=== PATIENT | male | born 1985 | race Caucasian/White ===

== ENCOUNTER 2020-11-19 12:49 | Outpatient (REF) | payer OTHER, SELFPAY ==
[2020-11-19 13:55] LABS: MANUAL DIFF FLAG NO
[2020-11-19 13:59] LABS: Basophils Percent Auto 0.6 % (0-2); Eosinophils Absolute Auto 0.1 X10*3/uL (0.0-0.4); Eosinophils Percent Auto 3.6 % (0-4); Hematocrit 46.6 % (42-52); Hemoglobin 15.9 g/dl (14.0-18.0); Imm Gran Abs Auto 0.01 X10*3/uL (0.00-0.03); Imm Gran Pct Auto 0.3 % (0.0-0.4); Lymphocytes Absolute Auto 1.1 X10*3/uL (1.2-4.9); Lymphocytes Percent Auto 33.9 % (20-40); Mean Corpuscular HGB Conc 34.1 g/dl (31.0-36.0); Mean Corpuscular Hemoglobin 29.4 pg (27.0-33.0); Mean Corpuscular Volume 86.1 fL (80-98); Mean Platelet Volume 10.7 fL (9.4-12.4); Monocytes Absolute Auto 0.3 X10*3/uL (0.1-1.2); Monocytes Percent Auto 8.2 % (2-11); Neutrophils Absolute Auto 1.8 X10*3/uL (2.0-8.3); Neutrophils Percent Auto 53.4 % (45-73); Platelet Count 252 X10*3/uL (160-400); Red Blood Count 5.41 X10*6/uL (4.60-5.80); Red Cell Distribution Width 12.2 % (11.0-16.0); White Blood Count 3.3 X10*3/uL (4.8-10.8)
[2020-11-19 14:32] LABS: Alanine Aminotransferase 72 U/L (0-40); Albumin Level 4.9 g/dL (3.5-5.0); Alkaline Phosphatase 64 U/L (39-117); Anion Gap 12 (12-20); Aspartate Amino Transferase 50 U/L (5-37); Blood Urea Nitrogen 22 mg/dL (9-16); Calcium 9.6 mg/dL (8.4-10.2); Carbon Dioxide 32 mmol/L (22-29); Chloride 101 mmol/L (96-108); Cholesterol 139 mg/dL; Estimated Glomerular Filt Rate > 60; Glucose Fasting 103 mg/dL (60-99); HDL Cholesterol 61 mg/dL; LDL Cholesterol Calculated 66 mg/dl; Potassium 4.2 mmol/L (3.3-5.1); Sodium 141 mmol/L (135-145); Total Protein 7.6 g/dL (6.5-8.0); Triglycerides 61 mg/dL
[2020-11-19 14:52] LABS: TSH reflex Free T4 1.43 uIU/mL (0.32-4.0); Vitamin D 25-OH Total 29.1 ng/mL (>30)
[2020-11-19 15:12] LABS: Folate 14.2 ng/mL (> or = 4.0); Vitamin B12 549 pg/mL (200-900)
== END 2020-11-19 12:50 | disposition home or self-care (01) ==
LOC: HO.HMGCLDS 12:49
PROVIDERS: PCP Internal Medicine; Visit Provider Internal Medicine
DX: Z00.01 Encounter for general adult medical examination with abnormal findings (principal); F32.9 Major depressive disorder, single episode, unspecified; R12 Heartburn; J45.20 Mild intermittent asthma, uncomplicated; R53.81 Other malaise; R53.83 Other fatigue
CPT/HCPCS: 36415; 80053; 80061; 82306; 82607; 82746; 84443; 85025

== ENCOUNTER 2021-01-27 09:02 | Outpatient (RCR) | payer OTHER, SELFPAY ==
--- NOTE | 2021-01-28 08:51 | MHC.PT.EP ---
[facility] Office [place] Office [place] Office [address] [phone] F: [phone] F: [phone] F: [phone] F: [phone] Physical Therapy Plan of Care Date of Evaluation: Date of Surgery: n/a Diagnosis: upper and lower back pain Assessment: Patient is a 35 year old R handed male who presents with s/s consistent with upper and lower back pain. 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 Outside of work, he is habitually sedentary with a lot of computer games and sitting. Patient past medical history includes depression and anxiety. Current impairments include pain, ROM, strength, posture, activity tolerance and functional mobility. Functional limitations include decreased ability to walk, lift, sit, work at computer, stand, transfer, negotiate stairs, and perform weight bearing activities.. Patient is motivated with good rehab potential. Skilled PT will address impairments and functional limitations in order to achieve goals. Frequency and Duration: The patient will be seen 1x/week for 5 weeks Short Term Goals: I with HEP - 2 weeks Improved body mechanics lifting floor to waist - 3 weeks Improved postural awareness - 3 weeks Correction Goals: Reduced pain with ADLs to 3/10 max - 5 weeks Able to work pain free - 5 weeks Treatment Plan: Modalities to reduce pain, spasms and effusion. Manual therapy to restore motion and function. Therapeutic exercise to improve strength and flexibility. Neuromuscular re-education for posture and balance. Therapeutic activities to return to functional activities of daily living. Electronically signed by: Yassine Downey, PT Please sign and return to therapist. Thank you for your referral.
--- NOTE | 2021-04-10 09:45 | MHC.PT.DC ---
[facility] Office [place] Office [place] Office [address] [place] [address] 140 [facility] [phone] F: [phone] F: [phone] F: [phone] F: [phone] Physical Therapy Discharge Report Diagnosis: upper and lower back pain Date of Surgery: n/a Date of Evaluation: 01/27/21 Date of Discharge: 04/10/21 Treatments to Date: 1 Cancellations to Date: 0 No Shows to Date: 0 Discharge Status: Patient Elected to Stop Visit Non-compliance Discharge Summary: Pt never followed up after eval. Electronically signed by: Dario Canales PT. Please sign and return to therapist. Thank you for your referral.
== END 2021-04-10 09:46 | disposition home or self-care (01) ==
LOC: HO.PTCHIC 09:02
PROVIDERS: PCP Internal Medicine; Visit Provider Internal Medicine
DX: M54.5 Low back pain (principal); S29.012A Strain of muscle and tendon of back wall of thorax, initial encounter
CPT/HCPCS: 97110; 97161

== ENCOUNTER 2021-05-23 08:48 | Outpatient (REF) | payer OTHER, SELFPAY ==
[2021-05-23 11:59] LABS: Syphilis Screen Nonreactive (Nonreactive)
[2021-05-23 12:04] LABS: HBS Num1 30.95 mIU/mL (0-7.99); ~Hepatitis B Surface Antibody REACTIVE (Nonreactive)
[2021-05-23 12:26] LABS: HIV AB/AG Nonreactive (Nonreactive); HIV Num 1 0.07 S/CO (0.00-0.99); Hepatitis B Core Antibody Nonreactive (Nonreactive); Hepatitis B Surface Antigen Negative (Negative); ~Hepatitis C Antibody Nonreactive (Nonreactive)
[2021-05-23 13:16] LABS: CT PCR NOT DETECTED (Not Detect.); NG PCR NOT DETECTED (Not Detect.)
== END 2021-05-23 08:49 | disposition home or self-care (01) ==
LOC: HO.HMGCLDS 08:48
PROVIDERS: PCP Internal Medicine; Visit Provider Internal Medicine
DX: Z01.84 Encounter for antibody response examination (principal); Z11.3 Encounter for screening for infections with a predominantly sexual mode of transmission; Z11.4 Encounter for screening for human immunodeficiency virus [HIV]; Z11.59 Encounter for screening for other viral diseases
CPT/HCPCS: 36415; 86704; 86706; 86780; 86803; 87340; 87389; 87491; 87591

== ENCOUNTER 2021-09-22 08:19 | Outpatient (REF) | payer OTHER, SELFPAY | END 2021-09-22 08:20 | disposition home or self-care (01) | LOC: HO.HMGCLDS 08:19 | PROVIDERS: Visit Provider Internal Medicine | DX: Z20.822 Contact with and (suspected) exposure to COVID-19 (principal) | CPT/HCPCS: C9803; U0003; U0005 ==

== ENCOUNTER 2021-11-15 11:16 | Outpatient (REF) | payer OTHER, SELFPAY ==
[2021-11-15 13:10] LABS: MANUAL DIFF FLAG NO
[2021-11-15 13:27] LABS: Basophils Percent Auto 0.6 % (0-2); Eosinophils Absolute Auto 0.1 X10*3/uL (0.0-0.4); Hematocrit 43.1 % (42.0-52.0); Imm Gran Abs Auto 0.02 X10*3/uL (0.00-0.03); Imm Gran Pct Auto 0.6 % (0.0-0.4); Lymphocytes Absolute Auto 0.5 X10*3/uL (1.2-4.9); Lymphocytes Percent Auto 15.1 % (20-40); Mean Corpuscular HGB Conc 34.8 g/dl (31.0-36.0); Mean Corpuscular Hemoglobin 29.9 pg (27.0-33.0); Monocytes Absolute Auto 0.4 X10*3/uL (0.1-1.2); Monocytes Percent Auto 12.2 % (2-11); Neutrophils Absolute Auto 2.5 x10*3/uL (2.0-8.3); Neutrophils Percent Auto 69.5 % (45-73); Platelet Count 209 X10*3/uL (160-400); Red Blood Count 5.01 X10*6/uL (4.60-5.80); Red Cell Distribution Width 12.5 % (11.0-16.0); White Blood Count 3.5 X10*3/uL (4.8-10.8)
[2021-11-15 13:49] LABS: Alanine Aminotransferase 37 U/L (0-40); Albumin Level 4.6 g/dL (3.5-5.0); Alkaline Phosphatase 62 U/L (39-117); Anion Gap 13 (12-20); Aspartate Amino Transferase 29 U/L (5-37); Bilirubin Total 1.3 mg/dL (0.0-1.0); Blood Urea Nitrogen 18 mg/dL (9-16); Calcium 9.9 mg/dL (8.4-10.2); Carbon Dioxide 27 mmol/L (22-29); Chloride 103 mmol/L (96-108); Cholesterol 150 mg/dL; Estimated Glomerular Filt Rate > 60; Glucose Fasting 90 mg/dL (60-99); HDL Cholesterol 58 mg/dL; LDL Cholesterol Calculated 81 mg/dl; Potassium 4.1 mmol/L (3.3-5.1); Sodium 139 mmol/L (135-145); Total Protein 7.3 g/dL (6.5-8.0); Triglycerides 57 mg/dL
[2021-11-15 14:12] LABS: Vitamin D 25-OH Total 39.1 ng/mL (>30)
== END 2021-11-15 11:17 | disposition home or self-care (01) ==
LOC: HO.HMGCLDS 11:16
PROVIDERS: PCP Internal Medicine; Visit Provider Internal Medicine
DX: Z00.01 Encounter for general adult medical examination with abnormal findings (principal); R12 Heartburn
CPT/HCPCS: 36415; 80053; 80061; 82306; 85025

== ENCOUNTER 2022-01-29 08:47 | Emergency (ER) | payer OTHER, SELFPAY ==
[2022-01-29 09:25] VITALS: BP 118/83; PULSE 90; RESP 18; TEMP 36; O2SAT 97; BMI 24.8
--- NOTE | 2022-01-29 11:08 | ED_ITS ---
HPI - Back Pain/Injury General Chief Complaint: Back Pain/Injury Stated Complaint: back pain Time Seen by Provider: 01/29/22 10:46 Source: patient Mode of arrival: ambulatory Limitations: no limitations History of Present Illness HPI Narrative: Patient presents to the emergency department for evaluation of left lower back pain radiates down the left leg with onset of symptoms 4 days ago. 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 Does not believe that the moved or twisted wrong. Pain is made worse with prolonged standing or with ambulation. Today he was unable to work due to the pain. There has not taken any Tylenol or ibuprofen for his pain. Denies identifiable precipitating injury, fevers, chills, burning with micturition, urinary frequency, urgency, hesitancy, hematuria, bladder or bowel dysfunction, numbness or tingling of the perineum or bilateral legs. Denies any recent surgical procedures, any known immune compromising conditions, personal history of cancer, or IV drug usage. MD elicited complaint: back pain Onset (ago): day(s) Timing: intermittent Severity: mild Similar Symptoms Previously: No Quality: aching Location: lumbar spine Radiation: left upper leg Exacerbating factors: movement and walking Relieving factors: immobilization Associated symptoms: denies other symptoms Treatments prior to arrival: cold therapy and heat therapy Work related injury: No Related Data Home Medications Medication Instructions Recorded Confirmed cholecalciferol (vitamin D3) 50 50 mcg PO DAILY 05/23/21 09/11/21 mcg (2,000 unit) capsule Previous Rx's Medication Instructions Recorded escitalopram oxalate 20 mg tablet 20 mg PO DAILY #30 tab 11/14/21 escitalopram oxalate 10 mg tablet 10 mg PO DAILY #30 tab 01/29/22 naproxen 500 mg tablet 500 mg PO BID PRN #14 tab 01/29/22 Allergies Allergy/AdvReac Type Severity Reaction Status Date / Time No Known Allergies Allergy Verified 01/29/22 12:22 [No Known Allergies*] Review of Systems Review of Systems: Constitutional: No weight loss, fever, chills, weakness or fatigue. HEENT: No visual loss, blurred vision, double vision. No hearing loss, sneezing, congestion, runny nose or sore throat. Skin: No rash or itching. Cardiovascular: No chest pain, chest pressure or chest discomfort. No palpitations or pedal edema. Respiratory: No shortness of breath, cough or sputum production. Gastrointestinal: No anorexia, nausea, vomiting or diarrhea. No abdominal pain or blood in stool. Genitourinary: No burning micturition. No urinary frequency or incontinence. Neurologic: No headache, dizziness, syncope, unilateral weakness, ataxia, numbness or tingling in the extremities. No change in bowel or bladder control. Musculoskeletal: + Back pain as noted in HPI. No joint pain or stiffness. Hematologic: No bleeding or bruising. Endocrine: No polyuria or polydipsia. Yes all other systems are reviewed and are negative [facility] Past Medical History Attestation statement: The following information was validated with the patient. Source: old records reviewed Medical History Heartburn symptom Irritable bowel syndrome with constipation and diarrhea Lumbago Mild intermittent asthma Recurrent mild major depressive disorder with anxiety Surgical History No pertinent past surgical history Family History Family History Father Depression Mental health disorder Mother Breast cancer Polycystic kidney disease Maternal Grandmother Stomach cancer Maternal Grandfather Bone cancer Brother No problems noted. Brother No problems noted. Brother No problems noted. Paternal Uncle Substance use disorder Paternal Aunt Substance use disorder Social History Social History Housing: Apartment Alcohol intake: current Patient Tobacco Use Status: Never used Tobacco e-Cigarette/Vaping Use: Never Used service: No Current occupational status: employed Cognitive needs: No Hearing needs: No Vision needs: Yes Physical Exam Vital Signs: Vital Signs: Last Vital Signs Temp 96.8 F 01/29/22 09:25 Pulse 90 01/29/22 09:25 Resp 18 01/29/22 09:25 BP 118/83 01/29/22 09:25 Pulse Ox 97 01/29/22 09:25 BMI result Body Mass Index 24.8 Vital signs have been reviewed as normal and appeared to be correct. Blood pressure normal.? Heart rate normal.? Respiration rate normal. Temperature normal.? Oxygen saturation normal. Appearance: Alert.?Oriented to person, place and time. No acute distress.?Normal affect. Eyes: Pupils equal, round and reactive to light.? ENT: Pharynx normal.?? Neck: Normal inspection.? Neck supple.?? CVS: Heart sounds normal. Normal heart rate and rhythm.? Pulses normal; bilateral radial pulses 2+, bilateral posterior tibial/dorsalis pedis pulses 2+.? Respiratory: No respiratory distress.? Lung sounds clear to auscultation bilaterally?? Abdomen: Soft and non-tender. Normoactive bowel sounds. No pulsatile mass.?? Skin: Skin warm and dry.? Normal skin color.? Normal skin turgor.?? Extremities: No lower extremity edema.? No calf ttp? Back: + mild paraspinal muscular tenderness from lumbar region to coccyx. No CVA tenderness. No midline spinal tenderness, step-off's, or deformity. Full ROM intact in bilateral lower extremities. Straight leg test negative on right; Straight leg test positive on left. No rashes, lesions, areas of induration or fluctuance, or signs of infection noted. Neuro: Moves all extremities spontaneously. 5/5 strength in hip extension/flexion, abduction, adduction. Sensation to light touch intact bilaterally. Patellar and Achilles reflex 2+ bilaterally. No ataxia, gait normal and steady.. No focal neuro deficits. Course Course Course Narrative: Patient is a 36-year-old male with past medical history of asthma, and anxiety presenting for evaluation of left lower back pain with onset over the past 4 days. He is overall well appearing, nontoxic, afebrile. Urinalysis reveals no sign of infection or microscopic hematuria. Received naproxen while in the emergency department. Pain is most consistent with muscular pain, although cannot completely exclude herniated disc. On neurological exam there are no deficits. Not consistent with spinal fracture, spinal infection, epidural abscess, AAA, epidural abscess, or dissection. No high risk past medical history including incontinence, fever, immunosuppression, recent surgery or lumbar puncture, coagulopathy, significant trauma, recent unintentional weight loss, pulsatile mass, history of cancer, history of TB, history of IV drug use that would warrant MRI or CT. Not consistent with pyelonephritis, urinary tract infection, renal calculi, appendicitis, diverticulitis. On exam no concern for cauda equina syndrome. No imaging is currently indicated at this time. Plan for discharge home with new prescription for naproxen, gentle stretching and lower back exercises, provided with a return to work note, discussed reasons to return back to the emergency department, advised follow-up with primary care provider, and patient agreed with plan. MDM - Back Pain/Injury Medical Records Attestation: I reviewed the patient's medical records. Lab Data Labs: Lab Results 01/29/22 Range/Units 11:19 Urine Color YELLOW Urine Appearance CLEAR Urine pH 7.5 (5.0-8.0) Ur Specific [place] 1.015 (1.005-1.025) Urine Protein NEG (NEG-TRACE) MG/DL Urine Glucose (UA) NEG (NEG) MG/DL Urine Ketones NEG (NEG) MG/DL Urine Blood NEG (NEG) Urine Nitrite NEG (NEG) Ur Leukocyte Esterase NEG (NEG) Discharge Plan Discharge Clinical Impression: Strain of lumbar region Patient Disposition: Home, Self-Care Instructions: Low Back Strain (ED), R.I.C.E. Treatment (ED), Lower Back Exercises (ED) Additional Instructions: As we discussed, your pain is most consistent with a strain of the muscles in the lower back. You have been given a new prescription for naproxen to use as needed for pain. Do not take additional [id number] NSAIDs such as ibuprofen, Aleve, aspirin while taking this medication. You may take Tylenol in addition. Return to the emergency department any new or worsening symptoms or concerns. Follow up with her primary care provider as needed Prescriptions: New naproxen 500 mg tablet 500 mg PO BID PRN (Reason: pain) Qty: 14 0RF No Action escitalopram oxalate 20 mg tablet 20 mg PO DAILY Qty: 30 5RF cholecalciferol (vitamin D3) 50 mcg (2,000 unit) capsule 50 mcg PO DAILY 0RF escitalopram oxalate 10 mg tablet 10 mg PO DAILY Qty: 30 1RF Referrals: Karen Abdi MD [Primary Care Provider] - 1 week Stand Alone Forms: Work/School Release Interventions: ED Discharge Assessment Last Done: 01/29/22 11:50 Discharge Date/Time: 01/29/22 11:51
[2022-01-29] MEDS: NaPROXEN 500 MG TABLET PO (11:21)
[2022-01-29 11:26] LABS: Appearance Urine CLEAR; Color Urine YELLOW; Glucose Urine UA NEG (NEG); Leukocyte Esterase Urine NEG (NEG); Nitrite Urine NEG (NEG); PH 7.5 (5.0-8.0); Specific Gravity - Urine 1.015 (1.005-1.025); Urine Blood NEG (NEG); Urine Ketones NEG (NEG); Urine Protein NEG (NEG-TRACE)
== END 2022-01-29 11:51 | disposition home or self-care (01) ==
PROVIDERS: Nurse Practitioner Family; Emergency Provider Emergency Medicine; PCP Internal Medicine
DX: S39.012A Strain of muscle, fascia and tendon of lower back, initial encounter (principal); J45.20 Mild intermittent asthma, uncomplicated; X50.0XXA Overexertion from strenuous movement or load, initial encounter; Y93.9 Activity, unspecified; Y92.9 Unspecified place or not applicable; Y99.9 Unspecified external cause status
CPT/HCPCS: 81003; 99282; 99283

== ENCOUNTER 2022-07-11 08:20 | Emergency (ER) | payer OTHER, SELFPAY ==
--- NOTE | ~2022-07-11 | XR_ITS ---
EXAMINATION: XR CHEST CLINICAL INFORMATION: Chest pain. COMPARISON: None TECHNIQUE: 2 views of the chest were obtained. FINDINGS: No significant abnormality is noted involving the heart, lungs, mediastinum, bony thorax or soft tissues. XR/XR chest 2V IMPRESSION: No acute cardiopulmonary process.
--- NOTE | 2022-07-11 08:31 | ECG_ITS ---
Test Reason : CP Blood Pressure : / mmHG Vent. Rate : 075 BPM Atrial Rate : 075 BPM P-R Int : 138 ms QRS Dur : 078 ms QT Int : 346 ms P-R-T Axes : 039 057 031 degrees QTc Int : 386 ms Normal sinus rhythm Normal ECG No previous ECGs available Referred By: Generic ED Physician Electronically Signed By:DELANO HIGUERA MD
[2022-07-11 09:01] VITALS: BP 129/96; PULSE 90; TEMP 37.1; O2SAT 96; BMI 25.7
--- NOTE | 2022-07-11 10:02 | ED.CHESTPAIN ---
HPI - Chest Pain General Chief Complaint: Chest Pain Stated Complaint: chest pain Time Seen by Provider: 07/11/22 10:02 Source: patient Mode of arrival: ambulatory Limitations: no limitations History of Present Illness HPI narrative: 37 yo male with history of mild intermittent asthma, depression, irritable bowel syndrome who presents to the ER with 1 day of middle chest pains that started yesterday morning when he woke up at 5:30am. He states the pain starts in the epigastric area and radiates up into his chest in a T-distribution. He states it comes and goes in intensity and is burning in nature. It is sometimes worse with food. History of reflux in the past and intermittently takes omeprazole, last time was a few days ago. He denies any associated shortness of breath, coughing, wheezing, fever, chills, nausea, vomiting. MD complaint: chest pain Pertinent past history: other Onset (ago): day(s) (1) Timing of current episode: episodic Prior episodes: Yes Onset: awoke with symptoms Pain location: epigastric Severity: moderate Pain scale (0-10): 6 Quality: burning Relieving factors: nothing Exacerbating factors: nothing Treatment prior to arrival: none Risk Factors Coronary artery disease risk factors: none Thoracic aortic dissection risk factors: none Related Data Home Medications Medication Instructions Recorded Confirmed omeprazole 20 mg tablet,delayed 20 mg PO DAILY 03/16/22 release Previous Rx's Medication Instructions Recorded albuterol sulfate 90 mcg/actuation 2 puff inhalation Q6H PRN 03/16/22 aerosol inhaler shortness of breath or wheezing #8.5 grams dicyclomine 20 mg tablet 20 mg PO TID PRN abdominal 07/10/22 discomfort #90 tabs omeprazole 40 mg capsule,delayed 40 mg PO DAILY #14 caps 07/11/22 release Allergies Allergy/AdvReac Type Severity Reaction Status Date / Time No Known Allergies Allergy Verified 03/17/22 02:37 [No Known Allergies*] Review of Systems Review of Systems: Constitutional: No Fever, No Chills ENT/Mouth: No sore throat, No Rhinorrhea, No Swallowing Difficulty Cardiovascular: +Chest Pain, No SOB Respiratory: No Cough, No Sputum, No Wheezing, No dyspnea Gastrointestinal: No Nausea, No Vomiting, No Diarrhea, No abdominal Pain, No Hematochezia, No Melena Genitourinary: No Dysuria, No Urinary Frequency, No Hematuria Musculoskeletal: No joint pain, No Myalgias Skin: No Skin Lesions, No rash Neuro: No Weakness, No Numbness, No Dizziness, No Headache Heme/Lymph: No Bruising, No Lymphadenopathy PMFSH Past Medical History Medical History (Updated 07/11/22 @ 10:28 by CHELSEA Bradley) Difficulty concentrating Heartburn symptom Inattention Irritable bowel syndrome with constipation and diarrhea Lumbago Mild intermittent asthma Recurrent mild major depressive disorder with anxiety Surgical History No pertinent past surgical history Family History Family History Father Depression Mental health disorder Mother Breast cancer Polycystic kidney disease Maternal Grandmother Stomach cancer Maternal Grandfather Bone cancer Brother No problems noted. Brother No problems noted. Brother No problems noted. Paternal Uncle Substance use disorder Paternal Aunt Substance use disorder Social History Social History Housing: Apartment Alcohol intake: current Patient Tobacco Use Status: Never used Tobacco e-Cigarette/Vaping Use: Never Used Advance Directives: No Advance Directives Information Provided: Yes service: No Current occupational status: employed Cognitive needs: No Hearing needs: No Vision needs: Yes Physical Exam Vital Signs: Vital Signs: Last Vital Signs Temp 98.7 F 07/11/22 09:01 Pulse 71 07/11/22 10:19 Resp 17 07/11/22 10:19 BP 129/96 H 07/11/22 09:01 Pulse Ox 96 07/11/22 09:01 O2 Del Method 07/11/22 09:01 BMI result Body Mass Index 25.7 Appearance: Alert. Oriented X3. No acute distress. Eyes: Pupils equal, round and reactive to light. ENT: Pharynx normal. Neck: Normal inspection. Neck supple. CVS: Normal heart rate and rhythm. Pulses normal. Respiratory: No respiratory distress. Breath sounds normal. Abdomen: Soft with mild epigastric tenderness without rebound or guarding, normal +BS x4 Skin: Skin warm and dry. Normal skin color. Normal skin turgor. No rashes. Extremities: No lower extremity edema. Neuro: Oriented X 3. Grossly normal, nonfocal Course Course Course Narrative: 37-year-old male with history of asthma, anxiety, irritable bowel syndrome, GERD who presents to the ER for evaluation of epigastric pain that radiates up into his chest, waxing and waning over the last 24 hours. Exam and clinical presentation are most consistent with reflux and GERD. Will treat accordingly. Will rule out cardiac etiology with EKG and troponin. He appears well. His lungs are clear on exam and vital signs are stable. Reevaluation(s) Reevaluation #1: Troponin negative. CXR negative. He feels better after GI cocktail. Most likely GERD. Will d/c with PPI and dietary modifications. Stable for d/c - home instructions discussed with patient and he expressed understanding all questions were answered. MDM - Chest Pain Medical Records Data Attestation: I reviewed the patient's medical records. Lab Data Attestation: I reviewed the patient's lab results. Result diagrams: 07/11/22 10:14 07/11/22 10:14 Labs: Lab Results 07/11/22 07/11/22 07/11/22 Range/Units 10:14 10:14 10:14 WBC 4.8 (4.8-10.8) X10*3/uL RBC 5.26 (4.60-5.80) X10*6/uL Hgb 15.7 (14.0-18.0) g/dl Hct 45.8 (42.0-52.0) % MCV 87.1 (80.0-98.0) fL MCH 29.8 (27.0-33.0) pg MCHC 34.3 (31.0-36.0) g/dl RDW 12.2 (11.0-16.0) % Plt Count 238 (160-400) X10*3/uL MPV 10.4 (9.4-12.4) fL Immature Gran % (Auto) 0.6 H (0.0-0.4) % Neut % (Auto) 66.1 (45-73) % Lymph % (Auto) 20.5 (20-40) % [place] % (Auto) 9.3 (2-11) % Eos % (Auto) 2.7 (0-4) % Baso % (Auto) 0.8 (0-2) % Lymph # (Auto) 1.0 L (1.2-4.9) X10*3/uL [place] # (Auto) 0.5 (0.1-1.2) X10*3/uL Eos # (Auto) 0.1 (0.0-0.4) X10*3/uL Baso # (Auto) 0.0 (0.0-0.2) X10*3/uL Abs Immat Gran (auto) 0.03 (0.00-0.03) X10*3/uL Absolute Neuts (auto) 3.2 (2.0-8.3) x10*3/uL Absolute Nucleated RBC 0.000 (0.0-0.012) X10*3/uL Nucleated RBC % (auto) 0.0 (0.0-0.2) /100WBC Sodium 141 (135-145) mmol/L Potassium 4.1 (3.3-5.1) mmol/L Chloride 101 (96-108) mmol/L Carbon Dioxide 30 H (22-29) mmol/L Anion Gap 14 (12-20) BUN 12 (9-16) mg/dL Creatinine 1.03 (0.5-1.4) mg/dL Estim Creat Clear Calc 102.3 Estimated GFR > 60 Random Glucose 92 (60-115) mg/dL Calcium 10.2 (8.4-10.2) mg/dL Magnesium 2.2 (1.6-2.6) mg/dL Total Bilirubin 0.8 (0.0-1.0) mg/dL Direct Bilirubin 0.4 (0.0-0.5) mg/dL AST 33 (5-37) U/L ALT 61 H (0-40) U/L Alkaline Phosphatase 67 (39-117) U/L Troponin I High Sens < 3.5 (<3.5-35.0) ng/L Total Protein 7.7 (6.5-8.0) g/dL Albumin 4.9 (3.5-5.0) g/dL Lipase 12 (8-78) U/L COVID-19 ([facility]) (Negative) COVID-19 Clin Com 07/11/22 Range/Units 10:14 WBC (4.8-10.8) X10*3/uL RBC (4.60-5.80) X10*6/uL Hgb (14.0-18.0) g/dl Hct (42.0-52.0) % MCV (80.0-98.0) fL MCH (27.0-33.0) pg MCHC (31.0-36.0) g/dl RDW (11.0-16.0) % Plt Count (160-400) X10*3/uL MPV (9.4-12.4) fL Immature Gran % (Auto) (0.0-0.4) % Neut % (Auto) (45-73) % Lymph % (Auto) (20-40) % [place] % (Auto) (2-11) % Eos % (Auto) (0-4) % Baso % (Auto) (0-2) % Lymph # (Auto) (1.2-4.9) X10*3/uL [place] # (Auto) (0.1-1.2) X10*3/uL Eos # (Auto) (0.0-0.4) X10*3/uL Baso # (Auto) (0.0-0.2) X10*3/uL Abs Immat Gran (auto) (0.00-0.03) X10*3/uL Absolute Neuts (auto) (2.0-8.3) x10*3/uL Absolute Nucleated RBC (0.0-0.012) X10*3/uL Nucleated RBC % (auto) (0.0-0.2) /100WBC Sodium (135-145) mmol/L Potassium (3.3-5.1) mmol/L Chloride (96-108) mmol/L Carbon Dioxide (22-29) mmol/L Anion Gap (12-20) BUN (9-16) mg/dL Creatinine (0.5-1.4) mg/dL Estim Creat Clear Calc Estimated GFR Random Glucose (60-115) mg/dL Calcium (8.4-10.2) mg/dL Magnesium (1.6-2.6) mg/dL Total Bilirubin (0.0-1.0) mg/dL Direct Bilirubin (0.0-0.5) mg/dL AST (5-37) U/L ALT (0-40) U/L Alkaline Phosphatase (39-117) U/L Troponin I High Sens (<3.5-35.0) ng/L Total Protein (6.5-8.0) g/dL Albumin (3.5-5.0) g/dL Lipase (8-78) U/L COVID-19 ([facility]) Negative (Negative) COVID-19 Clin Com See Note ECG Data ECG #1: Attestation: I personally reviewed and interpreted this ECG as follows: ECG interpretation date: 07/11/22 ECG interpretation time: 10:27 Prior ECG tracings: available for review Interpretation: Normal sinus rhythm, ventricular rate 75 beats per minute, normal DE interval, normal QTC, no ST segment elevations or depressions. Discharge Plan Discharge Clinical Impression: GERD (gastroesophageal reflux disease) Patient Disposition: Home, Self-Care Instructions: Diet for Stomach Ulcers and Gastritis (ED), Gastroesophageal Reflux Disease (ED) Additional Instructions: Your lab workup today was unremarkable. Your pain is most likely due to GERD or gastritis (irritation and inflammation of your stomach lining) Start taking the prescribed medication as directed for this. Stick to a bland diet. Avoid foods high in acid, avoid alcohol and NSAID medications like Aleve, Motrin, Advil or ibuprofen. Follow up with your doctor as needed. Follow up with GI doctor if you symptoms persist despite dietary modifications and medication. If you develop new or worsening symptoms call 911 or come back to the ER for further evaluation. Prescriptions: New omeprazole 40 mg capsule,delayed release(DR/EC) 40 mg PO DAILY Qty: 14 0RF No Action omeprazole 20 mg tablet,delayed release (DR/EC) 20 mg PO DAILY albuterol sulfate 90 mcg/actuation HFA aerosol inhaler 2 puff inhalation Q6H PRN (Reason: shortness of breath or wheezing) Qty: 8.5 0RF dicyclomine 20 mg tablet 20 mg PO TID PRN (Reason: abdominal discomfort) Qty: 90 0RF
[2022-07-11 10:19] VITALS: PULSE 71; RESP 17
--- NOTE | 2022-07-11 10:19 | PC.NURSE ---
sr on monitor, nad, skin wpd, epigastric pain that radiates up into chest for 2nd day,
[2022-07-11 10:22] LABS: MANUAL DIFF FLAG NO
[2022-07-11] MEDS: Lidocaine HCl Viscous 2 % 15 ML SOLUTION MUCOUS MEM (10:25)
[2022-07-11] MEDS: PHENobarb/Hyoscy/Atropine/Scop 10 ML ELIXIR PO (10:25)
[2022-07-11] MEDS: Magnesium Hydrox/Alum Hydrox 30 ML ORAL.SUSP PO (10:25)
[2022-07-11 10:26] LABS: Basophils Percent Auto 0.8 % (0-2); Eosinophils Absolute Auto 0.1 X10*3/uL (0.0-0.4); Eosinophils Percent Auto 2.7 % (0-4); Hematocrit 45.8 % (42.0-52.0); Hemoglobin 15.7 g/dl (14.0-18.0); Imm Gran Abs Auto 0.03 X10*3/uL (0.00-0.03); Imm Gran Pct Auto 0.6 % (0.0-0.4); Lymphocytes Percent Auto 20.5 % (20-40); Mean Corpuscular HGB Conc 34.3 g/dl (31.0-36.0); Mean Corpuscular Hemoglobin 29.8 pg (27.0-33.0); Mean Corpuscular Volume 87.1 fL (80.0-98.0); Mean Platelet Volume 10.4 fL (9.4-12.4); Monocytes Absolute Auto 0.5 X10*3/uL (0.1-1.2); Monocytes Percent Auto 9.3 % (2-11); Neutrophils Absolute Auto 3.2 x10*3/uL (2.0-8.3); Neutrophils Percent Auto 66.1 % (45-73); Platelet Count 238 X10*3/uL (160-400); Red Blood Count 5.26 X10*6/uL (4.60-5.80); Red Cell Distribution Width 12.2 % (11.0-16.0); White Blood Count 4.8 X10*3/uL (4.8-10.8)
[2022-07-11 10:39] LABS: COVID-19 Test Negative (Negative); IDNOW Serial# 16C4AD1C
[2022-07-11 10:42] LABS: Alanine Aminotransferase 61 U/L (0-40); Albumin Level 4.9 g/dL (3.5-5.0); Alkaline Phosphatase 67 U/L (39-117); Anion Gap 14 (12-20); Aspartate Amino Transferase 33 U/L (5-37); Bilirubin Direct 0.4 mg/dL (0.0-0.5); Bilirubin Total 0.8 mg/dL (0.0-1.0); Blood Urea Nitrogen 12 mg/dL (9-16); Calcium 10.2 mg/dL (8.4-10.2); Carbon Dioxide 30 mmol/L (22-29); Chloride 101 mmol/L (96-108); Creatinine Clr Calc Pharmacy 102.3; Estimated Glomerular Filt Rate > 60; Glucose Random 92 mg/dL (60-115); Lipase 12 U/L (8-78); Magnesium 2.2 mg/dL (1.6-2.6); Potassium 4.1 mmol/L (3.3-5.1); Sodium 141 mmol/L (135-145); Total Protein 7.7 g/dL (6.5-8.0)
[2022-07-11 10:48] LABS: Troponin-I High Sensitivity < 3.5 ng/L (<3.5-35.0)
--- NOTE | 2022-07-11 10:56 | PC.NURSE ---
sr on monitor, skin wpd, states pain improved, provider aware
== END 2022-07-11 11:36 | disposition home or self-care (01) ==
PROVIDERS: Emergency Provider Emergency Medicine; PCP Internal Medicine
DX: K21.9 Gastro-esophageal reflux disease without esophagitis (principal); Z20.822 Contact with and (suspected) exposure to COVID-19
CPT/HCPCS: 71046; 80048; 80076; 83690; 83735; 84484; 85025; 87635; 93005; 99283; 99284

== ENCOUNTER 2022-09-29 14:46 | Outpatient (REF) | payer OTHER, SELFPAY ==
[2022-09-29 17:49] LABS: Amylase 43 U/L (28-100); C Reactive Protein 0.26 mg/dL (< or = 0.50); Gamma Glutamyl Transpeptidase 86 U/L (11-51); Lipase 20 U/L (8-78)
[2022-09-29 17:59] LABS: Ferritin 130 ng/mL (20-250); TSH reflex Free T4 2.39 uIU/mL (0.32-4.0)
[2022-09-30 08:03] LABS: HBS Num1 25.57 mIU/mL (0-7.99); HBc Num1 0.75 S/CO (0.00-0.79); HBsAGNum1 0.39 S/CO (0.00-0.99); HIV AB/AG Nonreactive (Nonreactive); HIV Num 1 0.08 S/CO (0.00-0.99); Hepatitis A Antibody IgM 0.16 Index (0-0.79); Hepatitis B Core Antibody Nonreactive (Nonreactive); Hepatitis B Surface Antigen Negative (Negative); ~HepC Num1 0.11 S/CO (0.00-0.79); ~Hepatitis A Antibody IgM Nonreactive (Nonreactive); ~Hepatitis B Surface Antibody REACTIVE (Nonreactive); ~Hepatitis C Antibody Nonreactive (Nonreactive)
[2022-10-01 11:28] LABS: Alpha Fetoprotein 4.3 ng/mL (<6.1)
[2022-10-02 12:03] LABS: Anti Nuclear Antibody Pattern Nuclear, Homogeneous; Anti Nuclear Antibody Screen POSITIVE (NEGATIVE); Anti Nuclear Antibody Titer 1:40 titer
[2022-10-04 22:44] LABS: Smooth Muscle Antibody <20 U (<20)
[2022-10-06 09:02] LABS: Mitochondrial Antibodies NEGATIVE (NEGATIVE)
[2022-10-08 15:13] LABS: Transglutaminase Ab IgG <1.0 U/mL; Transglutaminase IgA <1.0 U/mL
== END 2022-09-29 14:47 | disposition home or self-care (01) ==
LOC: HO.LAB 14:46
PROVIDERS: PCP Internal Medicine; Visit Provider Nurse Practitioner
DX: K21.9 Gastro-esophageal reflux disease without esophagitis (principal); R10.10 Upper abdominal pain, unspecified; R19.7 Diarrhea, unspecified; R07.9 Chest pain, unspecified; R13.10 Dysphagia, unspecified
CPT/HCPCS: 36415; 82105; 82150; 82728; 82977; 83690; 84443; 86003; 86015; 86038; 86039; 86140; 86255; 86256; 86364; 86704; 86706; 86709; 86803; 87340; 87389; 99202

== ENCOUNTER 2022-10-03 09:35 | Outpatient (REF) | payer OTHER, SELFPAY | END 2022-10-03 09:36 | disposition home or self-care (01) | LOC: HO.LNP 09:35 | PROVIDERS: Visit Provider Nurse Practitioner | DX: R19.7 Diarrhea, unspecified (principal); K21.9 Gastro-esophageal reflux disease without esophagitis; R10.10 Upper abdominal pain, unspecified | CPT/HCPCS: 82656 ==

== ENCOUNTER 2022-11-02 09:09 | Outpatient (REF) | payer OTHER, SELFPAY ==
--- NOTE | ~2022-11-02 | US_ITS ---
EXAMINATION: US ABDOMEN COMPLETE CLINICAL INFORMATION: Diarrhea, unspecified. COMPARISON: Ultrasound abdomen complete 09/23/2018. CT abdomen and pelvis without contrast 08/13/2018. TECHNIQUE: Real-time imaging of the abdominal viscera. FINDINGS: PANCREAS: The head and body appear normal. The tail is obscured by bowel gas. ABDOMINAL AORTA: The proximal, mid, and distal segments are normal in caliber. INFERIOR VENA CAVA: Visualized portions are normal. LIVER: The liver is normal in size. The liver contour is normal. There is diffuse increased liver parenchymal echogenicity, consistent with hepatic steatosis. No focal hepatic lesion. There is no intrahepatic biliary duct dilatation seen. GALLBLADDER: Normal. The gallbladder is physiologically distended without evidence of stones, sludge, wall thickening or pericholecystic fluid. COMMON BILE DUCT: Normal in caliber measuring 0.4 cm in diameter. RIGHT KIDNEY: Normal. No hydronephrosis. No renal calculi or focal parenchymal lesions. The kidney measures 10.5 cm in maximum dimension. LEFT KIDNEY: Normal. No hydronephrosis. No renal calculi or focal parenchymal lesions. The kidney measures 11.5 cm in maximum dimension. SPLEEN: Borderline enlarged The spleen measures 13.3 cm in maximum dimension. FREE FLUID: None. US/US abdomen complete IMPRESSION: Hepatic steatosis. Stable borderline enlarged spleen 13.3 cm.
== END 2022-11-02 09:10 | disposition home or self-care (01) ==
LOC: HO.US 09:09
PROVIDERS: Visit Provider Nurse Practitioner
DX: R19.7 Diarrhea, unspecified (principal); R10.10 Upper abdominal pain, unspecified; K21.9 Gastro-esophageal reflux disease without esophagitis
CPT/HCPCS: 76700

== ENCOUNTER 2022-11-20 08:55 | Outpatient (REF) | payer OTHER, SELFPAY ==
--- NOTE | ~2022-11-20 | FL_ITS ---
EXAMINATION: FL BARIUM SWALLOW CLINICAL INFORMATION: Dysphagia COMPARISON: None TECHNIQUE: Fluoroscopic assessment of the esophagus was performed in various upright and prone obliquities utilizing thin and thick high density barium contrast material and effervescent granules. A 13 mm barium tablet was also utilized. FINDINGS: There is normal oral bolus control and transfer. Normal posterior tilt of the epiglottis with elevation of the hyoid. No cricopharyngeal abnormality. 13 mm barium tablet passed freely through the esophagus and into the stomach without delay. The esophagus was normal in course, caliber, and contour. There was normal distensibility with no fixed segment of narrowing. No focal mucosal abnormality was identified. No significant esophageal dysmotility was observed. Contrast passed freely across the gastroesophageal junction into the stomach. No significant hiatal hernia. Mild gastroesophageal reflux was observed. FLUOROSCOPY TIME: 1.4 minutes DOSE AREA PRODUCT: 8.658 Gy-cm2 (newton-centimeter squared) FL/FL barium swallow IMPRESSION: Mild gastroesophageal reflux noted. Otherwise unremarkable esophagram evaluation.
== END 2022-11-20 08:56 | disposition home or self-care (01) ==
LOC: HO.XRAY 08:55
PROVIDERS: PCP Internal Medicine; Visit Provider Nurse Practitioner
DX: R13.10 Dysphagia, unspecified (principal)
CPT/HCPCS: 74220

== ENCOUNTER → 2022-12-23 15:48 | Outpatient (BNVA) | payer OTHER, SELFPAY | PROVIDERS: PCP Internal Medicine; Visit Provider Nurse Practitioner | DX: K21.9 Gastro-esophageal reflux disease without esophagitis (principal); K58.2 Mixed irritable bowel syndrome; K75.81 Nonalcoholic steatohepatitis (NASH) | CPT/HCPCS: 99212 ==

== ENCOUNTER 2023-02-26 10:14 | Emergency (ER) | payer OTHER, SELFPAY ==
--- NOTE | ~2023-02-26 | MR_ITS ---
EXAMINATION: MR LUMBAR SPINE WITHOUT CONTRAST CLINICAL INFORMATION: Low back pain, urinary retention/incontinence. COMPARISON: CT scan of the lumbar spine earlier 02/26/2023. TECHNIQUE: MRI of the lumbar spine was obtained using routine sequences without contrast. FINDINGS: VERTEBRAL BODIES AND PARASPINAL STRUCTURES: There is a mild retrolisthesis of L5 on S1, and there is narrowing of intervertebral disc height at this level and there are degenerative endplate contour changes with relatively extensive edematous signal. Vertebral body heights are maintained and no fractures are demonstrated. There is a prominent area of increased T1 and T2 signal in the posterior body of L5, most consistent with a hemangioma. Overall, marrow signal is homogenous. The visualized retroperitoneal and pelvic structures are unremarkable. CONUS MEDULLARIS AND CAUDA EQUINA: Normal, terminating at the level of L1. The lower thoracic spinal cord appears normal. The cauda equina nerve roots and filum terminale appear normal. There are prominent Tarlov cyst in the sacral spinal canal. SPINAL LEVELS: L1-L2: The facet joints appear normal. There is a small right foraminal nerve root sheath cyst. Posterior disc contour is normal. There is no central stenosis and the neural foramina are patent bilaterally. L2-L3: The facet joints appear normal bilaterally. Disc contour is normal. There is no central stenosis or foraminal narrowing. L3-L4: The facet joints appear normal bilaterally. Disc contour is normal. There is no central stenosis or foraminal narrowing. L4-L5: There is mild bilateral facet arthropathy. There is a mild diffuse disc bulge but there is no central stenosis and the neural foramina are patent bilaterally. L5-S1: There is moderate bilateral facet arthropathy. There is a broad-based posterior disc protrusion with an extruded component extending behind the body of S1 centrally and to the left of midline, and there is impingement on the traversing S1 nerve roots bilaterally, more extensively on the left. There are also bilateral foraminal disc protrusions impinging on the exiting L5 nerve roots. There is no central stenosis. MR/MR lumbar spine wo con IMPRESSION: 1. There is a posterior disc protrusion/extrusion at L5-S1 with impingement on the traversing S1 nerve roots bilaterally, more extensive on the left. There are also bilateral foraminal disc protrusions impinging on the exiting L5 nerve roots. There is no central stenosis. 2. There is no significant spondylosis or facet arthropathy at other levels. There are no acute fractures or subluxations.
--- NOTE | ~2023-02-26 | CT_ITS ---
EXAMINATION: CT LUMBAR SPINE CLINICAL INFORMATION: Low back pain. Urinary incontinence. COMPARISON: Lumbar spine x-ray June [address] of the abdomen and pelvis July 2018 TECHNIQUE: Axial images through the lumbar spine following IV contrast. Patient received 85 mL Omnipaque 350 IV contrast. Sagittal and coronal reconstructions on the technologist workstation were performed. This CT examination was performed using dose optimization techniques as appropriate, variously including the following: *Automated exposure control *Adjustment of mA and/or kV according to patient size (this includes techniques or standardized protocols for targeted exams where dose is matched to indication/reason for exam; i.e. extremities or head) *Use of iterative reconstruction technique DLP: 351 mGy-cm FINDINGS: Bone alignment is normal. No fracture or dislocation. There is degenerative disc disease at L5-S1. T12-L1 there is no disc herniation protrusion or bulge. At L1-L2 there is no disc herniation protrusion or bulge. At L2-L3 there is no disc herniation protrusion or bulge. At L3-L4 there is mild diffuse disc bulge. No disc herniation. There is mild spinal stenosis due to disc bulge and short pedicles. At L4-L5 there is mild diffuse disc bulge. No disc herniation. No spinal stenosis. At L5-S1 there is a large diffuse disc bulge or broad-based disc herniation. Disc is seen in the bilateral lateral recesses and abuts the bilateral S1 nerve roots. Neural foramen are patent. There is mild facet arthritis bilaterally at L5-S1. There are Tarlov cysts seen in the sacrum. Paraspinal soft tissues are unremarkable. CT/CT lumbar spine w IV con IMPRESSION: Large disc bulge or broad-based disc herniation at L5-S1. Mild disc bulge L3-L4 and L4-L5.
[2023-02-26 10:15] VITALS: BP 138/87; PULSE 88; RESP 18; TEMP 36.6; O2SAT 99; BMI 25.8
--- NOTE | 2023-02-26 10:55 | PC.NURSE ---
patient a&ox3, patient states his lower back is painful lt hip radiating to rt hip, pt states he is also recently having ED from it. pt states that he also has urinary incontinence, pt states he hasnt seen his PCP about this issue has a physical in March but his symptoms have worsened.
--- NOTE | 2023-02-26 11:15 | ED_ITS ---
HPI - Back Pain/Injury General Chief Complaint: Back Pain/Injury Stated Complaint: lower back pain/ L leg pain Time Seen by Provider: 02/26/23 10:39 Source: patient Mode of arrival: ambulatory Limitations: no limitations History of Present Illness HPI Narrative: 37-year-old male with history of anxiety / depression, GERD, asthma who presents to the ER for evaluation of worsening non-traumatic low back pain and left lower extremity pain for the last 2 months. He states the pain Seems to originate in the left upper thigh, radiate up to the left buttock and left low back. It radiates all the way down the left leg as well. He states is worse with any movement. He states he also has been suffering from erectile dysfunction, difficulty maintaining and obtaining an erection. He also admits to urinary dribbling after he voids. He states that after he urinates, and he bends the wrong way, he dribbles urine. This is been happening at increased frequency for the last couple of months. He reports some numbness and tingling in his left inguinal area. No weakness of the left leg. No fecal incontinence. No fevers or history of drug use. 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 MD elicited complaint: back pain Pertinent past history: prior back pain Onset (ago): month(s) (2) Timing: progressively worsening Severity: severe Similar Symptoms Previously: Yes Quality: sharp, stabbing and tingling Location: left lower back Radiation: groin, buttocks, left upper leg and left leg below the knee Exacerbating factors: movement Relieving factors: immobilization and supine Associated symptoms: urinary incontinence and parasthesias Related Data Home Medications Medication Instructions Recorded Confirmed quetiapine 50 mg tablet (Seroquel) 50 mg PO BEDTIME 12/23/22 Previous Rx's Medication Instructions Recorded albuterol sulfate 90 mcg/actuation 2 puff inhalation Q6H PRN 08/10/22 aerosol inhaler shortness of breath or wheezing #8.5 grams omeprazole 20 mg tablet,delayed 20 mg PO DAILY #30 tabs 12/23/22 release polyethylene glycol 3350 17 17 g PO DAILY 30 days #510 grams 12/23/22 gram/dose oral powder (Miralax) cyclobenzaprine 10 mg tablet 10 mg PO TID PRN muscle spasm #14 02/26/23 tabs ibuprofen 600 mg tablet 600 mg PO Q8H PRN pain #30 tabs 02/26/23 Allergies Allergy/AdvReac Type Severity Reaction Status Date / Time No Known Allergies Allergy Verified 02/26/23 10:15 [No Known Allergies*] Review of Systems Review of Systems: Yes all other systems are reviewed and are negative [facility] Past Medical History Medical History (Updated 02/26/23 @ 16:25 by CHELSEA Bradley) Difficulty concentrating Inattention Irritable bowel syndrome with constipation and diarrhea Lumbago Mild intermittent asthma Recurrent mild major depressive disorder with anxiety Surgical History No pertinent past surgical history Family History Family History Father Depression Mental health disorder Mother Breast cancer Polycystic kidney disease Maternal Grandmother Stomach cancer Maternal Grandfather Bone cancer Brother No problems noted. Brother No problems noted. Brother No problems noted. Paternal Uncle Substance use disorder Paternal Aunt Substance use disorder Social History Social History Housing: Apartment Alcohol intake: never Patient Tobacco Use Status: Never used Tobacco Smoked in Last 30 Days: No e-Cigarette/Vaping Use: Never Used Use of substances other than those prescribed or required for medical reasons: No Advance Directives: No Advance Directives Information Provided: Yes service: No Current occupational status: employed Cognitive needs: No Hearing needs: No Vision needs: Yes Physical Exam Vital Signs: Vital Signs: Last Vital Signs Temp 97.4 F 02/26/23 17:13 Pulse 69 02/26/23 17:13 Resp 18 02/26/23 17:13 BP 126/89 02/26/23 17:13 Pulse Ox 98 02/26/23 17:13 O2 Del Method Room Air 02/26/23 17:13 BMI result Body Mass Index 25.8 Appearance: Alert. Oriented X3. No acute distress. Head: normocephalic, atraumatic. Eyes: Pupils equal, round and reactive to light. ENT: Pharynx normal. No tonsillar swelling or exudate. Neck: Normal inspection. Neck supple. CVS: Normal heart rate and rhythm. Pulses normal. Respiratory: No respiratory distress. Breath sounds normal. Abdomen: Soft and nontender. +BS x4 [place]: normal rectal tone Back: Normal inspection. There is tenderness diffusely throughout the lumbar area including the lumbar spine and left and right middle lumbar area soft tissues. Negative straight leg raise Bilaterally. Skin: Skin warm and dry. Normal skin color. Normal skin turgor. No rashes. Extremities: No lower extremity edema. No joint swelling. Neuro/psych: Oriented X 3. No motor deficit. No sensory deficit. CN II-XII intact. Normal speech and cognition. Normal patellar reflexes bilaterally. Steady gait. Medications Administered Discontinued Medications Generic Name Dose Route Start Last Admin Trade Name Freq PRN Reason Stop Dose Admin Iohexol 100 ml 02/26/23 12:23 02/26/23 12:28 Iohexol 350 Mg/Ml 100 Ml Infus..Btl IV 02/26/23 12:24 85 ml ONCE ONE Administration Medical Decision Making Medical Decision Making [facility] Narrative: 37-year-old male presents to the ER for evaluation of worsening left lower back pain for the last 2 months. He states it radiates down the left leg and into the left groin, associated with some tingling sensation in the left groin. He also endorses erectile dysfunction and urinary incontinence after he voids. Concern for possible urinary retention. Postvoid residual in the emergency department today is 32 cc. Given his concerning history, a CT scan was performed showing large disc bulge at the L5-S1 area with nerve root compression. an MRI was performed for further evaluation given cord compression concern. Thankfully there was no central cord stenosis seen on MRI. At this time patient is stable for discharge home with anti-inflammatories and close outpatient follow-up. Differential Diagnosis Differential Diagnoses: The differential diagnosis associated with the presentation includes Inflammatory disorders, malignancy, trauma, osteoporosis, nerve root compression, radiculopathy, plexopathy, degenerative disc disease, disc herniation, spinal stenosis, sacroiliac joint dysfunction, facet joint injury, and cauda equina less likely infection?like abscess or diskitis Admission/Observation Consideration of admission/observation: Escalation of care including admission/observation considered There was concern for cauda equina, considered admission and transfer if found to be positive On imaging today Lab Data [facility] Lab Attestation statement: I reviewed the patient's lab results. 02/26/23 11:30 02/26/23 11:30 Labs: Lab Results 02/26/23 02/26/23 Range/Units 11:30 11:30 WBC 3.7 L (4.8-10.8) X10*3/uL RBC 5.05 (4.60-5.80) X10*6/uL Hgb 14.8 (14.0-18.0) g/dl Hct 43.8 (42.0-52.0) % MCV 86.7 (80.0-98.0) fL MCH 29.3 (27.0-33.0) pg MCHC 33.8 (31.0-36.0) g/dl RDW 12.5 (11.0-16.0) % Plt Count 217 (160-400) X10*3/uL MPV 10.5 (9.4-12.4) fL Immature Gran % (Auto) 0.3 (0.0-0.4) % Neut % (Auto) 55.3 (45-73) % Lymph % (Auto) 29.3 (20-40) % [place] % (Auto) 11.0 (2-11) % Eos % (Auto) 3.0 (0-4) % Baso % (Auto) 1.1 (0-2) % Lymph # (Auto) 1.1 L (1.2-4.9) X10*3/uL [place] # (Auto) 0.4 (0.1-1.2) X10*3/uL Eos # (Auto) 0.1 (0.0-0.4) X10*3/uL Baso # (Auto) 0.0 (0.0-0.2) X10*3/uL Abs Immat Gran (auto) 0.01 (0.00-0.03) X10*3/uL Absolute Neuts (auto) 2.0 (2.0-8.3) x10*3/uL Absolute Nucleated RBC 0.000 (0.0-0.012) X10*3/uL Nucleated RBC % (auto) 0.0 (0.0-0.2) /100WBC Sodium 140 (135-145) mmol/L Potassium 4.5 (3.3-5.1) mmol/L Chloride 106 (96-108) mmol/L Carbon Dioxide 27 (22-29) mmol/L Anion Gap 12 (12-20) BUN 16 (9-16) mg/dL Creatinine 0.98 (0.5-1.4) mg/dL Estim Creat Clear Calc 107.5 Estimated GFR > 60 Random Glucose 110 (60-115) mg/dL Calcium 9.7 (8.4-10.2) mg/dL Independent Interpretation I performed an independent interpretation of an: CT Scan Interpretation: disc bulge appreciated lumbar spine, agree w/ radiologist read. Radiology Impression Discussion of test interpretation with radiology: I have reviewed the radiologist's reading. Radiologist Impression: CT/CT lumbar spine w IV con IMPRESSION: Large disc bulge or broad-based disc herniation at L5-S1. Mild disc bulge L3-L4 and L4-L5. MR/MR lumbar spine wo con IMPRESSION: 1. There is a posterior disc protrusion/extrusion at L5-S1 with impingement on the traversing S1 nerve roots bilaterally, more extensive on the left. There are also bilateral foraminal disc protrusions impinging on the exiting L5 nerve roots. There is no central stenosis. ? 2. There is no significant spondylosis or facet arthropathy at other levels. There are no acute fractures or subluxations. External Record Review External record reviewed: Outpatient record Prescription Management I considered prescription management with: Pain Medication Critical Care Time Critical Care Time Critical Care Time: Yes Total Critical Care Time: 39 Attestation: I have personally provided critical care time exclusive of time spent on separately billable procedures. Time includes review of lab data, radiology results, discussion with consultants, and monitoring for potential decompensatio n. Intervention performed as documented. Discharge Plan Discharge Clinical Impression: Herniation of intervertebral disc between L5 and S1 Patient Disposition: Home, Self-Care Instructions: Lumbar Disc Herniation (ED), Lower Back Exercises (ED) Additional Instructions: Minimize your bending, lifting & twisting. Use ice several times per day for 20 minutes at a time for the next 48 hours and then change to heat. Take medications as prescribed to help with pain and discomfort. Follow up with your Primary Care Doctor as soon as possible If your pain worsens, if you develop new numbness, tingling, weakness, loss of function or incontinence call 911 or come back to the ER right away for evaluation. Recommend following up with [facility] in [place] or [facility]. Phone number is . ?MR/MR lumbar spine wo con IMPRESSION: 1. There is a posterior disc protrusion/extrusion at L5-S1 with impingement on the traversing S1 nerve roots bilaterally, more extensive on the left. There are also bilateral foraminal disc protrusions impinging on the exiting L5 nerve roots. There is no central stenosis. ? 2. There is no significant spondylosis or facet arthropathy at other levels. There are no acute fractures or subluxations. Prescriptions: New ibuprofen 600 mg tablet 600 mg PO Q8H PRN (Reason: pain) Qty: 30 0RF cyclobenzaprine 10 mg tablet 10 mg PO TID PRN (Reason: muscle spasm) Qty: 14 0RF No Action albuterol sulfate 90 mcg/actuation HFA aerosol inhaler 2 puff inhalation Q6H PRN (Reason: shortness of breath or wheezing) Qty: 8.5 0RF quetiapine [Seroquel] 50 mg tablet 50 mg PO BEDTIME polyethylene glycol 3350 [Miralax] 17 gram/dose powder 17 g PO DAILY 30 Days Qty: 510 6RF omeprazole 20 mg tablet,delayed release (DR/EC) 20 mg PO DAILY Qty: 30 6RF
[2023-02-26 11:36] LABS: MANUAL DIFF FLAG NO
[2023-02-26 11:42] LABS: Basophils Percent Auto 1.1 % (0-2); Eosinophils Absolute Auto 0.1 X10*3/uL (0.0-0.4); Hematocrit 43.8 % (42.0-52.0); Hemoglobin 14.8 g/dl (14.0-18.0); Imm Gran Abs Auto 0.01 X10*3/uL (0.00-0.03); Imm Gran Pct Auto 0.3 % (0.0-0.4); Lymphocytes Absolute Auto 1.1 X10*3/uL (1.2-4.9); Lymphocytes Percent Auto 29.3 % (20-40); Mean Corpuscular HGB Conc 33.8 g/dl (31.0-36.0); Mean Corpuscular Hemoglobin 29.3 pg (27.0-33.0); Mean Corpuscular Volume 86.7 fL (80.0-98.0); Mean Platelet Volume 10.5 fL (9.4-12.4); Monocytes Absolute Auto 0.4 X10*3/uL (0.1-1.2); Neutrophils Percent Auto 55.3 % (45-73); Platelet Count 217 X10*3/uL (160-400); Red Blood Count 5.05 X10*6/uL (4.60-5.80); Red Cell Distribution Width 12.5 % (11.0-16.0); White Blood Count 3.7 X10*3/uL (4.8-10.8)
[2023-02-26 11:59] LABS: Anion Gap 12 (12-20); Blood Urea Nitrogen 16 mg/dL (9-16); Calcium 9.7 mg/dL (8.4-10.2); Carbon Dioxide 27 mmol/L (22-29); Chloride 106 mmol/L (96-108); Creatinine Clr Calc Pharmacy 107.5; Estimated Glomerular Filt Rate > 60; Glucose Random 110 mg/dL (60-115); Potassium 4.5 mmol/L (3.3-5.1); Sodium 140 mmol/L (135-145)
[2023-02-26] MEDS: iohexoL 350 MG/ML 100 ML INFUS..BTL IV (12:28)
[2023-02-26 14:00] VITALS: BP 131/78; PULSE 86; RESP 18; TEMP 36.7; O2SAT 99
--- NOTE | 2023-02-26 14:13 | PC.NURSE ---
bladder scan obtained, mri screening form performed and faxed to mri
[2023-02-26 17:13] VITALS: BP 126/89; PULSE 69; RESP 18; TEMP 36.3; O2SAT 98
--- NOTE | 2023-02-26 17:23 | PC.NURSE ---
pt to MRI
--- NOTE | 2023-02-26 18:33 | PC.NURSE ---
pt returned from mri, rectal exam performed by provider
[2023-02-26 19:05] VITALS: BP 124/88; PULSE 76; RESP 16; TEMP 36.5; O2SAT 97
[2023-02-26] MEDS: Ketorolac Tromethamine 30 MG/ML VIAL IVPUSH (19:07)
--- NOTE | 2023-02-26 19:10 | PC.NURSE ---
patient a&ox3, vss, pt medicated for 6/10 lower back pain, awaiting discharge
== END 2023-02-26 19:15 | disposition home or self-care (01) ==
PROVIDERS: Physician Assistant; Emergency Provider Internal Medicine; PCP Internal Medicine
DX: M51.27 Other intervertebral disc displacement, lumbosacral region (principal); R32 Unspecified urinary incontinence; M79.605 Pain in left leg; Z79.899 Other long term (current) drug therapy
CPT/HCPCS: 36415; 51798; 72132; 72148; 80048; 85025; 96374; 99284; 99285; J1885; Q9967

== ENCOUNTER 2023-04-15 12:53 | Outpatient (AMB) | payer OTHER, SELFPAY ==
[2023-04-15 13:02] VITALS: BP 126/80; PULSE 74; O2SAT 98; BMI 27.2
--- NOTE | 2023-04-15 13:02 | A.OFFPC_ITS ---
Vital Signs 04/15/23 13:02 Height 5 ft 10 in Weight 189 lb 4 oz BMI 27.2 BP 126/80 Blood Pressure Location Lt brachial Position Sitting Pulse 74 Pulse Source Pulse Oximeter Pulse Oximetry (%) 98 Oxygen Delivery Method Room Air Intake Visit Reasons: Annual PE Allergies No Known Allergies [No Known Allergies*] Allergy (Verified 04/15/23 13:04) Medication List - Last Reconciled 04/15/23 by Karen Abdi MD albuterol sulfate 90 mcg/actuation 2 puffs inhalation Q6H PRN ibuprofen 600 mg PO Q8H PRN omeprazole 20 mg PO DAILY Tobacco use date assessed: 04/15/23 Dental Screening Dental Screen Date: 04/15/23 Did you have a dental visit in the last 12 months?: No Did you have a dental problem in the last 6 months where you did not have access to dental care?: No Was dental information given to patient?: No HPI Annual PE HPI Details 38-year-old male here today for physical exam. Has mild intermittent asthma uses albuterol as needed for episodes of wheezing and bronchospasm. Lat jigna however he has been complaining of nasal congestion and phlegm in his throat accompanied by bronchospasm shortness of breath. Denies any wheezing, no fever, no coughing fits. Complains of pain in his lower back with radiation down left leg. MRI of lumbar spine showed presence of posterior disc protrusion/extrusion at L5-S1 with impingement on the traversing S1 nerve roots bilaterally, more extensive on the left. There are also bilateral foraminal disc protrusions impinging on the exiting L5 nerve roots. There is no central stenosis. Patient states that he was lifting a lot of boxes at work when he started feeling sudden pain and burning sensations back going down leg, approximately 3 months ago. Patient also mentions that he has been having difficulty getting morning erections and maintaining penile erection during sexual intercourse since that episode. Currently is being seen by Trista mullins, and diagnosed with depression/anxiety. Currently feeling better, stopped taking quetiapine, as it was not really helping and was making very drowsy. [facility] Medical History (Updated 04/15/23 @ 13:54 by Karen Abdi MD) Difficulty concentrating Erectile dysfunction Inattention Irritable bowel syndrome with constipation Irritable bowel syndrome with constipation and diarrhea Lumbago Lumbar disc herniation with radiculopathy Mild intermittent asthma Recurrent mild major depressive disorder with anxiety Surgical History No pertinent past surgical history Family History Father Depression Mental health disorder Mother Breast cancer Polycystic kidney disease Maternal Grandmother Stomach cancer Maternal Grandfather Bone cancer Brother No problems noted. Brother No problems noted. Brother No problems noted. Paternal Uncle Substance use disorder Paternal Aunt Substance use disorder Social History Housing: Apartment Alcohol intake: never Patient Tobacco Use Status: Never used Tobacco e-Cigarette/Vaping Use: Never Used service: No Current occupational status: employed Cognitive needs: No Hearing needs: No Vision needs: Yes Questionnaire PHQ-9 Over the last 2 weeks, how often have you been bothered by any of the following problems? 1. Little interest or pleasure in doing things: several days 2. Feeling down, depressed, or hopeless: not at all 3. Trouble falling or staying asleep, or sleeping too much: several days 4. Feeling tired or having little energy: several days 5. Poor appetite or overeating: not at all 6. Feeling bad about yourself - or that you are a failure or have let yourself or your family down: not at all 7. Trouble concentrating on things, such as reading the newspaper or watching television: several days 8. Moving or speaking so slowly that other people could have noticed. Or the opposite - being so fidgety or restless that you have been moving around a lot more than usual: not at all 9. Thoughts that you would be better off or of hurting yourself in some way: not at all Total score: 4 Depression Screening Interpretation: Positive Depression Screening Follow-up: Existing condition, In treatment, Community Mental Health Worker F/U and Declines treatment (Does not want to start any medications at present time.) 27768 - PHQ-9 Billing: Yes Source: Developed by Drs. Jeremie Medina, Jeannine Mc, Ravi Rock and colleagues, with an educational gal from [employer]. Thrive Questionnaire Date Thrive assessed: 04/15/23 I am a: Patient What is your living situation today?: I have a steady place to live Within the past 12 months, did the food you bought not last and you didn't have the money to get more?: Never true Within the past 12 months, did you worry whether your food would run out before you got money to buy more?: Never true Do you have trouble paying for medicines?: No Do you have trouble getting transportation to medical appointments?: No Do you have trouble paying your heating and electricity bill?: No Do you have trouble taking care of your child, family member or friend?: No Do you have trouble with day-to-day activities such as bathing, preparing meals, shopping, managing finances, etc.?: No Are you currently unemployed and looking for a job?: No Are you interested in more education?: Yes AUDIT C Alcohol Use Questionnaire (AUDIT-C) 1. How often do you have a drink containing alcohol?: Never 3. How often do you have six or more drinks on one occasion?: Never Total Score: 0 Score Reviewed/Action Taken: Yes KINGSLEY-7 AMB Questionnaire KINGSLEY-7 Date KINGSLEY - 7 assessed: 04/15/23 Feeling nervous, anxious, or on edge: 1 = Several days Not being able to stop or control worryin = Several days Worrying too much about different things: 1 = Several days Trouble relaxin = Not at all Being so restless that it is hard to sit still: 0 = Not at all Becoming easily annoyed or irritable: 2 = More than half the days Feeling afraid as if something awful might happen: 0 = Not at all Total KINGSLEY-7 score (0-4 normal; 5-9 mild; 10-14 moderate; 15-21 severe): 5 Source: Developed by Drs. Jeremie Medina, Jeannine Mc, Ravi Rock and colleagues, with an educational gal from [employer]. KINGSLEY-7 Assessment Billing KINGSLEY-7 Assessment Tool: KINGSLEY-7 Assessment 64921 ACT Questionnaire In the past 4 weeks, how much of the time did your asthma keep you from getting as much done at work, school or at home?: None of the time During the past 4 weeks, how often have you had shortness of breath?: 1-2 times a week During the past 4 weeks, how often did your asthma symptoms wake you up at night or earlier than usual in the morning?: Not at all During the past 4 weeks, how often have you had to use your rescue inhaler or nebulizer medication?: 2-3 times a week How would you rate your asthma control during the past 4 weeks?: Well controlled Score: 21 Review of Systems Const Denies fever(s), Denies night sweats, Denies poor appetite and Denies weight loss Eyes Details: glasses Reports requires corrective lenses ENT Reports Normal hearing present, Denies dysphagia, Denies hearing loss, Denies mouth pain, Denies odynophagia and Denies tongue swelling Card Reports no additional complaints Resp Reports no additional complaints GI Denies abdominal pain, Denies melena, Denies bloating, Denies hematochezia, Reports constipation, Denies GI cramping, Denies dysphagia, Denies excessive flatus, Denies early satiety, Reports heartburn, Denies diarrhea, Denies nausea and Denies odynophagia Reports as per HPI Skin/Breast Denies pruritus, Denies lesions, Denies rash and Denies jaundice Neuro Reports Normal hearing present and Denies Abnormal speech present Psych Reports as per HPI Endo Reports no additional complaints Jori/Lymph Reports no additional complaints Aller/Immun Denies tongue swelling Physical exam (Primary Care) Vital Signs: Last Vital Signs Pulse 74 04/15/23 13:02 BP 126/80 04/15/23 13:02 Pulse Ox 98 04/15/23 13:02 Oxygen Delivery Method Room Air 04/15/23 13:02 BMI result Body Mass Index 27.2 Tobacco/Smoking Status: Tobacco use Status Tobacco use date assessed 04/15/23 04/15/23 13:06 Patient Tobacco Use Status Never used Tobacco 04/15/23 13:06 e-Cigarette/Vaping Use Never Used 04/15/23 13:06 PHQ-9: PHQ-9 Score PHQ-9: Total score 11 04/15/23 13:50 Depression Screening Interpretation: Positive Depression Screening Follow-up: Existing condition, In treatment, Community Mental Health Worker F/U and Declines treatment (Does not want to start any medications at present time.) Thrive Assessment: Date of Thrive Assessment Date Thrive assessed 04/15/23 04/15/23 13:46 Const General: no acute distress and alert Nutritional Appearance: average body habitus Orientation/consciousness: patient oriented x3 [facility] Head: Yes normocephalic Ears: hearing grossly normal bilaterally, external ears normal and Abnormal EAC present excessive cerumen bilateral General nose exam: Normal external nose present and No nasal discharge present Face and sinus: Yes sinuses nontender and Yes face symmetric Mouth: Normal oral and palatal mucosa present, tongue normal, oropharynx normal and moist mucous membranes Eyes General: appearance normal, both eyes and all related structures Neck Neck: Yes full ROM, Yes no lymphadenopathy and Yes supple Thyroid: Thyroid normal Chest Chest palpation & inspection: normal inspection of the chest Resp Auscultation: clear to auscultation bilaterally Cardio Rate: regular rate Rhythm: regular rhythm Heart sounds: S1 normal heart sound present and S2 normal heart sound present GI Palpation (GI): Soft to palpation, nontender, no guarding and no masses Auscultation: normal bowel sounds Male General Exam: Yes normal external exam Back/Spine/Pelvis Other: Tender to palpation across lower back, equivocal straight leg raising sign on left Skin General skin exam: no rashes or lesions noted Neuro General: patient oriented x3, gait normal, tone normal, Normal light touch and pain sensation, no focal motor deficits and CN's II-XI intact bilaterally Cranial nerves: Yes Normal hearing present Cognition (Neuro): normal cognition Speech: No Abnormal speech present Gait exam (Neuro): Normal gait present Extrem General: Yes full ROM, Yes no joint enlargement, Yes no clubbing, cyanosis or edema, Yes no calf tenderness and Yes normal gait Psych Appearance: grossly normal and well kempt Mental Status: mental status grossly normal Speech and movement: Normal speech and movement present Affect: normal affect Attitude: cooperative Thought process: Normal thought process present Results Reviewed Results Reviewed: ENTERED: 02/26/23-[address]: Karen Abdi MD ORDERED: BMP Test Result Flag Reference Site Sodium 140 135-145 mmol/L Potassium 4.5 3.3-5.1 mmol/L Slight Hemolysis CL 106 96-108 mmol/L CO2 27 22-29 mmol/L Gap 12 12-20 BUN 16 9-16 mg/dL Creat 0.98 0.5-1.4 mg/dL Estimated CrCl 107.5 eGFR (calculated from the MDRD study equation) and eCrCl (calculated from the Cockcroft-Gault equation) are based on different parameters and may not yield comparable results. If eCrCl result is absurd, please check patient's height/weight. EGFR > 60 NOTE: For -[place] individuals, multiply the result by 1.210. Chronic Kidney Disease: Estimated GFR < 60 mL/min/1.73m2 Severe Kidney Disease: Estimated GFR < 15 mL/min/1.73m2 Glucose, Random 110 60-115 mg/dL CA 9.7 8.4-10.2 mg/dL ENTERED: 09/29/22-1631 [facility] DR: Karen Abdi MD ORDERED: [facility], HIV Ab/Ag Test Result Flag Reference Site HepA-M Interp Nonreactive Nonreactive IgM antibodies to HAV not detected; does not exclude early acute or recovered HAV infection. Anti-HBS REACTIVE Nonreactive REACTIVE: > 11.99 mIU/mL Anti-HBc Nonreactive Nonreactive Anti-HCV Nonreactive Nonreactive Antibodies to HCV not detected; does not exclude early acute HCV infection. HIV AB/AG Nonreactive Nonreactive HIV-1 p24 Ag and/or HIV-1/HIV-2 Ab not detected. A test result that is nonreactive does not exclude the possibility of exposure to or infection with HIV-1 and/or HIV-2. Nonreactive results in this assay for individuals with prior exposure to HIV-1 and/or HIV-2 may be due to antigen and antibody levels that are below the limit of detection of this assay. The [place] [employer] HIV Ag/Ab Combo assay result and supplemental assay results should be interpreted in conjunction with the patient's clinical presentation, history and other laboratory results. If the results are inconsistent with clinical evidence, additional testing is suggested to confirm the result. HBsAG Negative Negative Assessment and Plan Assessment & Plan (1) Annual visit for general adult medical examination with abnormal findings: Code(s): Z00.01 - Encounter for general adult medical examination with abnormal findings Plan: Reviewed recent labs obtained at the ER last month, with normal of CBC, random glucose, fasting lipid ordered.. Recommended dental visit every 6 months and regular eye exams, at least every 2 years. Take adequate calcium in diet and vitamin-D 3 at 2000 IU per cap once a day. Advised to get yearly flu shots, and recommended to get his COVID booster. Up-to-date with his Tdap. Advised to s elf testicular exam to check for any mass (2) PHILLIPS (nonalcoholic steatohepatitis): Comment: 09/29/22 Ferritin 130 GGT 86 H C-Reactive Protein 0.26 Amylase 43 Lipase 20 Alpha Fetoprotein 4.3 TSH 2.39 MYNOR Screen POSITIVE A MYNOR Titer 1:40 H Anti-Mitochondrial Ab NEGATIVE Anti-Smooth Muscle Ab <20 Tiss Transglutamin IgG <1.0 Tiss Transglutamin IgA <1.0 Hepatitis A IgM Ab Nonreactive Hep Bs Antigen Negative Hep Bs Antibody REACTIVE Hep B Core Total Ab Nonreactive Hepatitis C Ab (EIA) Nonreactive HIV 1&2 Ab/P24 Ag 4thGn Nonreactive ULTRASOUND OF THE ABDOMEN. 11/03/22? US/US abdomen complete IMPRESSION: Hepatic steatosis. Stable borderline enlarged spleen 13.3 cm. Code(s): K75.81 - Nonalcoholic steatohepatitis (PHILLIPS) Plan: Will check fasting lipid panel (3) GERD (gastroesophageal reflux disease): Code(s): K21.9 - Gastro-esophageal reflux disease without esophagitis Plan: Continue omeprazole (4) Mild intermittent asthma: Code(s): J45.20 - Mild intermittent asthma, uncomplicated Qualifiers: Asthma complication type: uncomplicated Qualified Code(s): J45.20 - Mild intermittent asthma, uncomplicated Plan: Continue albuterol inhaler as needed (5) Lumbar disc herniation with radiculopathy: Code(s): M51.16 - Intervertebral disc disorders with radiculopathy, lumbar region Plan: Referred to neurosurgery for further evaluation management. (6) Erectile dysfunction: Code(s): N52.9 - Male erectile dysfunction, unspecified Plan: Testosterone levels obtained (7) Recurrent mild major depressive disorder with anxiety: Code(s): F33.0 - Major depressive disorder, recurrent, mild; F41.9 - Anxiety disorder, unspecified Plan: Currently being followed by therapist, declines starting any medication at present time (8) Irritable bowel syndrome with constipation: Code(s): K58.1 - Irritable bowel syndrome with constipation Plan: Increase dietary fiber intake, drink plenty of fluids. May try taking [id number] senna as needed for constipation if no bowel movements after 2 days. Orders: Orders Lipid Panel Today F33.0 - Major depressive disorder, recurrent, mild, F41.9 - Anxiety disorder, unspecified, J45.20 - Mild intermittent asthma, uncomplicated, K75.81 - Nonalcoholic steatohepatitis (PHILLIPS), N52.9 - Male erectile dysfunction, unspecified, Z00.01 - Encounter for general adult medical examination with abnormal findings Testosterone, Free/Total Today F33.0 - Major depressive disorder, recurrent, mild, F41.9 - Anxiety disorder, unspecified, J45.20 - Mild intermittent asthma, uncomplicated, K75.81 - Nonalcoholic steatohepatitis (PHILLIPS), N52.9 - Male erectile dysfunction, unspecified, Z00.01 - Encounter for general adult medical examination with abnormal findings Vitamin D 25-OH Total Today F33.0 - Major depressive disorder, recurrent, mild, F41.9 - Anxiety disorder, unspecified, J45.20 - Mild intermittent asthma, uncomplicated, K75.81 - Nonalcoholic steatohepatitis (PHILLIPS), N52.9 - Male erectile dysfunction, unspecified, Z00.01 - Encounter for general adult medical examination with abnormal findings Referrals Neuro Spine Referral M51.16 - Intervertebral disc disorders with radiculopathy, lumbar region Coding Level of Care Code Est Pt [facility] Care [id number]) Diagnoses Annual visit for general adult medical examination with abnormal findings Z00.01 PHILLIPS (nonalcoholic steatohepatitis) K75.81 GERD (gastroesophageal reflux disease) K21.9 Mild intermittent asthma J45.20 Asthma complication type: uncomplicated Lumbar disc herniation with radiculopathy M51.16 Erectile dysfunction N52.9 Recurrent mild major depressive disorder with anxiety F33.0; F41.9 Irritable bowel syndrome with constipation K58.1 Additional Codes KINGSLEY-7 Assessment Billing - KINGSLEY-7 Assessment Tool: KINGSLEY-7 Assessment [id number] ([id number])
== END 2023-04-15 13:44 | disposition home or self-care (01) ==
PROVIDERS: Visit Provider Internal Medicine
DX: Z00.01 Encounter for general adult medical examination with abnormal findings (principal); K21.9 Gastro-esophageal reflux disease without esophagitis; J45.20 Mild intermittent asthma, uncomplicated; F33.0 Major depressive disorder, recurrent, mild; F41.9 Anxiety disorder, unspecified; K58.1 Irritable bowel syndrome with constipation; K75.81 Nonalcoholic steatohepatitis (NASH); M51.16 Intervertebral disc disorders with radiculopathy, lumbar region; N52.9 Male erectile dysfunction, unspecified
CPT/HCPCS: 99395

== ENCOUNTER 2023-04-17 13:06 | Outpatient (REF) | payer OTHER, SELFPAY ==
[2023-04-17 15:42] LABS: Cholesterol 134 mg/dL; HDL Cholesterol 53 mg/dL; LDL Cholesterol Calculated 69 mg/dl; Triglycerides 63 mg/dL
[2023-04-17 15:56] LABS: Vitamin D 25-OH Total 40.9 ng/mL (>30)
[2023-04-21 15:47] LABS: Testosterone, Total 654 ng/dL (250-1100)
== END 2023-04-17 13:07 | disposition home or self-care (01) ==
LOC: HO.HMGCLDS 13:06
PROVIDERS: PCP Internal Medicine; Visit Provider Internal Medicine
DX: Z00.01 Encounter for general adult medical examination with abnormal findings (principal); F41.9 Anxiety disorder, unspecified; F33.0 Major depressive disorder, recurrent, mild; J45.20 Mild intermittent asthma, uncomplicated; K75.81 Nonalcoholic steatohepatitis (NASH); N52.9 Male erectile dysfunction, unspecified
CPT/HCPCS: 36415; 80061; 82306; 84402; 84403

== ENCOUNTER 2023-05-18 12:43 | Outpatient (AMB) | payer OTHER, SELFPAY ==
--- NOTE | 2023-05-18 12:56 | A.SPINEOV_ITS ---
Intake Intake Visit Reasons: herniated disc Intake Note: Mr. Sadnoval is here today c/o back pain. MRI done @ [facility]. Diaphragm Builder Required: No Allergies No Known Allergies [No Known Allergies*] Allergy (Verified 04/15/23 13:04) Assessment & Plan Assessment & Plan (1) Lumbar disc herniation with radiculopathy: Code(s): M51.16 - Intervertebral disc disorders with radiculopathy, lumbar region Plan Dear colleague, Thank you for referring Miguelito to our office today. He is a pleasant 38-year- old male who comes in with a chief complaint of low back pain with radiation down his bilateral legs, predominantly on the left. He also endorses some numbness/tingling in his left lateral thigh. He reports that this pain 1st began in December of this year. He reports no inciting incident. He states that he has tried Tylenol, ibuprofen, cold compresses, heat, and stretching without alleviation of symptoms. He states that he has never had any injuries like this in the past, and feels that his symptoms have state relatively the same since they began December. He also reported some non-specific erectile dysfunction related issues which is unsure if they correlate with his onset of back / leg pain. He states that he has no issues with urination, or defecation. He denies saddle anesthesia. PMH: Asthma, irritable bowel syndrome, depression, erectile dysfunction, GERD. Social hx: Patient does not smoke, denies substance use. Medications: Omeprazole, ibuprofen, albuterol. Allergies: NKDA Physical exam: Sensation: Some diminished sensation of left thigh. Rest of sensation is intact and symmetric. CN: II-XII grossly intact. Strength Testing Lower Extremities: - Hip flexion 5/5 right 5/5 left - Knee extension 5/5 right 5/5 left - Dorsiflexion 5/5 right 5/5 left - Plantar flex 5/5 right 5/5 left - EHL 5/5 right 5/5 left Reflexes: - Patellar Right - 2+ Left - 2+ - Achilles Right - 2+ Left - 2+ - Plantar Right - 2+ Left - 2+ (-) Straight leg raise bilaterally Imaging review: MRI lumbar spine 02/26/[address] Christensen. The patient has a mild-moderate posterior disc bulge with some impingement on the exiting L5 nerve root noted. Central canal still appears quite patent. Endplate inflammation of L5-S1 noted between disc space. Impression: The patient is a 38-year-old male with a chief complaint low back pain with radiation of symptoms down his bilateral legs, left side more than right. He states that his symptoms began spontaneously back in December and have remained the same since. They cause him to feel mild to moderate irritation/pain throughout the day but did not impede his ability to perform daily tasks or complete his job at work, although they do irritate him throughout the day while doing these things. We discussed the possibility of surgery, and presented the potential options for him. We also discussed the possibility of subdural injections, and conservative management. He reported that he would like to try conservative management see if the disc is able to resorb on its own, and will call the office if he would like any further interventions. Thank you for allowing us to care for your patient. The total time spent with this visit with this patient was 45 minutes reviewing history, physical exam, MRI imaging review, and implementation of treatment plan or further diagnostic testing David Christensen MD,PhD [facility] Coding Level of Care Code New Pt Level 4 (64571) Diagnoses Lumbar disc herniation with radiculopathy M51.16
== END 2023-05-18 13:27 | disposition home or self-care (01) ==
PROVIDERS: PCP Internal Medicine; Referring Provider Internal Medicine; Visit Provider Physician Assistant
DX: M51.16 Intervertebral disc disorders with radiculopathy, lumbar region (principal)
CPT/HCPCS: 99204

== ENCOUNTER → 2023-05-18 12:43 | Outpatient (BNVA) | payer OTHER, SELFPAY | PROVIDERS: PCP Internal Medicine; Visit Provider Physician Assistant | DX: M51.16 Intervertebral disc disorders with radiculopathy, lumbar region (principal) | CPT/HCPCS: 99202 ==

== ENCOUNTER 2023-06-29 15:52 | Outpatient (AMB) | payer OTHER, SELFPAY ==
[2023-06-29 16:06] VITALS: BP 132/93; PULSE 82; BMI 26.9
--- NOTE | 2023-06-29 16:06 | MHC.OFFVIS ---
Intake Vital Signs 06/29/23 16:06 Height 5 ft 10 in Weight 187 lb 13.341 oz BMI 26.9 BP 132/93 H Blood Pressure Location Lt brachial Position Sitting Pulse 82 Intake Visit Reasons: 6 month follow up Intake Note: Patient presents to in office visit in 6 months follow up. CC: Patient c/o LLQ with radiation to groin and testicle for a few months. He also reports constipation and that he has noticed his urines are very yellow and feel hotter than usual. He continues to have acid reflux and states the Omeprazole helps sometimes. 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 We always suspected that a lot of his GI symptoms were driven by his anxiety and appears this was correct since this has solved most of his problem. He does continue on omeprazole once a day which has good control of his GERD. He has MiraLax to use when needed for constipation. Review all the test results and I am happy to tell there do not seem to be any severe pathologies uncovered. He does seem to have metabolic fatty liver which is it inherited condition as he is not tremendously overweight. I educate him that the cummings to keeping his liver healthy is not to drink alcohol on a daily basis, try not to gain a lot of weight as he he ages and if he ever to cut becomes diabetic to control his blood sugars. As he has only a mildly elevated ALT I think that his liver enzymes can be followed by his primary care provider and he should be return to our service if they rise to more than 3 times the normal limit. Return office visit in 6 months. (2) Irritable bowel syndrome with constipation and diarrhea: Code(s): K58.2 - Mixed irritable bowel syndrome (3) PHILLIPS (nonalcoholic steatohepatitis): Comment: 09/29/22 Ferritin 130 GGT 86 H C-Reactive Protein 0.26 Amylase 43 Lipase 20 Alpha Fetoprotein 4.3 TSH 2.39 MYNOR Screen POSITIVE A MYNOR Titer 1:40 H Anti-Mitochondrial Ab NEGATIVE Anti-Smooth Muscle Ab <20 Tiss Transglutamin IgG <1.0 Tiss Transglutamin IgA <1.0 Hepatitis A IgM Ab Nonreactive Hep Bs Antigen Negative Hep Bs Antibody REACTIVE Hep B Core Total Ab Nonreactive Hepatitis C Ab (EIA) Nonreactive HIV 1&2 Ab/P24 Ag 4thGn Nonreactive ULTRASOUND OF THE ABDOMEN. 11/03/22? US/US abdomen complete IMPRESSION: Hepatic steatosis. Stable borderline enlarged spleen 13.3 cm. Code(s): K75.81 - Nonalcoholic steatohepatitis (PHILLIPS) Medications: New polyethylene glyco l 3350 (Miralax) 17 grams PO DAILY 30 days 510 grams 6RF omeprazole 20 mg PO DAILY 30 tabs 6RF Discontinued dicyclomine Dis continued Reason: Doctor's Order 20 mg PO TID PRN 90 tabs 0RF abdomi nal discomfort TODAY'S VISIT Been more pain in the left lower quadrant. This tends to radiate into lay in sometimes even into the scrotum. With this, he also has increasing constipation. He stopped taking the MiraLax because it was causing him to have the urgently use bathroom it inconvenient times a and he replaced this with gummy fibers. However this clearly is not doing enough for. I suggest that instead we try senna since a pill form may be easier to titrate to what he needs. I let know he can experiment with taking it as needed, every day or every other day or in any way that seems to keep him where he needs to be without pain. He also has a history of back problems and recently had an MRI. However, he seems to have more low lumbar issues with no signs of spinal impingement at L1 or L2 that would tend to radiate to the groin. I did an SI joint examined this does not seem to be the case either. He is also complaining of dysuria with his urine looking more yellow and feeling more hot as it passes out of the urethra. He also tends to have dribbling in between urination. He presented to the ER for this and they did a postvoid residual that was normal however this does not exclude possible problems with the prostate and urine being reservoir in the urethra somewhere. I will get a UA since this is easy to see if there is an infection contributing to his symptoms.. He recently stopped his Seroquel because he was having erectile dysfunction. His normal function returned quickly after he sees this medication. I did tell him there are new or antidepressants on the market that do not cause this so much in case she should need 1 in the future. Viibryd is 1 of the but there are also other new medications but I am not as familiar with them since I am not prescribing in the primary care setting recently. Return office visit in 4 weeks. [facility] Medical History Irritable bowel syndrome with constipation Irritable bowel syndrome with constipation and diarrhea Erectile dysfunction Lumbar disc herniation with radiculopathy Inattention Difficulty concentrating Recurrent mild major depressive disorder with anxiety Lumbago Mild intermittent asthma Surgical History No pertinent past surgical history Family History Father Depression Mental health disorder Mother Breast cancer Polycystic kidney disease Maternal Grandmother Stomach cancer Maternal Grandfather Bone cancer Brother No problems noted. Brother No problems noted. Brother No problems noted. Paternal Uncle Substance use disorder Paternal Aunt Substance use disorder Social History Housing: Apartment Alcohol intake: never Patient Tobacco Use Status: Never used Tobacco e-Cigarette/Vaping Use: Never Used service: No Current occupational status: employed Cognitive needs: No Hearing needs: No Vision needs: Yes Review of Systems Const Denies fatigue, Denies fever(s), Denies night sweats, Denies poor appetite and Denies weight loss Eyes Details: glasses Reports requires corrective lenses ENT Reports Normal hearing present, Denies dental pain, Denies dysphagia, Denies hearing loss, Denies mouth pain, Denies odynophagia, Denies throat swelling, Denies tongue swelling and Reports other (Dentition adequate) Card Reports no additional complaints Resp Reports no additional complaints GI Reports abdominal pain, Denies melena, Denies bloating, Denies hematochezia, Reports constipation, Denies GI cramping, Denies dysphagia, Denies excessive flatus, Denies early satiety, Denies heartburn, Denies diarrhea, Denies nausea, Denies odynophagia, Denies vomiting and Denies hematemesis Reports dysuria and Reports testicular pain Musc Details: Left groin pain with radiation to the testicle area Reports back pain Skin/Breast Denies pruritus, Denies lesions, Denies rash and Denies jaundice Neuro Reports Normal hearing present and Denies Abnormal speech present Psych Reports anxiety, Reports depression, Reports irritability, Denies homicidal ideation and Denies suicidal ideation Endo Denies fatigue Aller/Immun Denies throat swelling and Denies tongue swelling Physical Exam Vital Signs: Last Vital Signs Pulse 82 06/29/23 16:06 BP 132/93 H 06/29/23 16:06 BMI result Body Mass Index 26.9 Const General: cooperative, no acute distress, well developed and well groomed Nutritional Appearance: average body habitus and well nourished Orientation/consciousness: oriented to person, oriented to place and oriented to time Limitations: No language barrier HEENT Head: Yes normocephalic and Yes atraumatic Eyes General: appearance normal, both eyes and all related structures Pupils: Equal, round and reactive pupils present Neck Neck: Yes normal visual inspection and Yes no lymphadenopathy Thyroid: Thyroid normal Resp Effort & Inspection: normal respiratory effort and able to speak in complete sentences Auscultation: clear to auscultation bilaterally Cardio Rate: regular rate Rhythm: regular rhythm Heart sounds: Normal, physiologic split S2 sound present Peripheral pulses: radial pulses present and posterior tibial pulses present GI Inspection: No distended and No Abdominal panniculus present Palpation (GI): Soft to palpation, nontender, no guarding, not rigid and No hepatosplenomegaly present Percussion: Yes normal to percussion Auscultation: normal bowel sounds Rectal Exam - Male: Yes deferred Skin General skin exam: no rashes or lesions noted, turgor normal, skin not dry, no jaundice, No spider nevi and no striae Rashes: no rashes Nails: normal Neuro General: oriented to person, oriented to place and oriented to time Cranial nerves: Yes Equal, round and reactive pupils present and Yes Normal hearing present Speech: No Abnormal speech present Extrem General: Yes normal to inspection, No clubbing, No cyanosis and No edema Psych Appearance: grossly normal and well kempt Mental Status: mental status grossly normal Speech and movement: Normal speech and movement present Affect: normal affect Attitude: cooperative Thought process: Normal thought process present and not confabulating Thought content: Normal thought content present Insight: Fair insight present (Psych) and Limited insight present (Psych) Judgement: Fair judgement present (Psych) and Limited judgement present (Psych) Assessment & Plan Assessment & Plan (1) Irritable bowel syndrome with constipation and diarrhea: Code(s): K58.2 - Mixed irritable bowel syndrome Plan: He has been having more pain in the left lower quadrant. This tends to radiate into lay in sometimes even into the scrotum. With this, he also has increasing constipation. He stopped taking the MiraLax because it was causing him to have the urgently use bathroom it inconvenient times a and he replaced this with gummy fibers. However this clearly is not doing enough for. I suggest that instead we try senna since a pill form may be easier to titrate to what he needs. I let know he can experiment with taking it as needed, every day or every other day or in any way that seems to keep him where he needs to be without pain. He also has a history of back problems and recently had an MRI. However, he seems to have more low lumbar issues with no signs of spinal impingement at L1 or L2 that would tend to radiate to the groin. I did an SI joint examined this does not seem to be the case either. He is also complaining of dysuria with his urine looking more yellow and feeling more hot as it passes out of the urethra. He also tends to have dribbling in between urination. He presented to the ER for this and they did a postvoid residual that was normal however this does not exclude possible problems with the prostate and urine being reservoir in the urethra somewhere. I will get a UA since this is easy to see if there is an infection contributing to his symptoms.. He recently stopped his Seroquel because he was having erectile dysfunction. His normal function returned quickly after he sees this medication. I did tell him there are new or antidepressants on the market that do not cause this so much in case she should need 1 in the future. Viibryd is 1 of the but there are also other new medications but I am not as familiar with them since I am not prescribing in the primary care setting recently. He feels that his mood is well controlled and while he has some irritability he credits this to situational stresses at home. Return office visit in 4 weeks. Next visit ask him to go for labs and ultrasound for his PHILLIPS since he is due. (2) Dysuria: Code(s): R30.0 - Dysuria (3) PHILLIPS (nonalcoholic steatohepatitis): Comment: 09/29/22 Ferritin 130 GGT 86 H C-Reactive Protein 0.26 Amylase 43 Lipase 20 Alpha Fetoprotein 4.3 TSH 2.39 MYNOR Screen POSITIVE A MYNOR Titer 1:40 H Anti-Mitochondrial Ab NEGATIVE Anti-Smooth Muscle Ab <20 Tiss Transglutamin IgG <1.0 Tiss Transglutamin IgA <1.0 Hepatitis A IgM Ab Nonreactive Hep Bs Antigen Negative Hep Bs Antibody REACTIVE Hep B Core Total Ab Nonreactive Hepatitis C Ab (EIA) Nonreactive HIV 1&2 Ab/P24 Ag 4thGn Nonreactive ULTRASOUND OF THE ABDOMEN. 11/03/22? US/US abdomen complete IMPRESSION: Hepatic steatosis. Stable borderline enlarged spleen 13.3 cm. Code(s): K75.81 - Nonalcoholic steatohepatitis (PHILLIPS) (4) GERD (gastroesophageal reflux disease): Code(s): K21.9 - Gastro-esophageal reflux disease without esophagitis Plan: I gave him a trial of omeprazole, but he has not needed it and I think this may be more driven by constipation anything else. Orders: Orders UA CC w/rflx Micro + Cult Today R30.0 - Dysuria Liver Panel Today K75.81 - Nonalcoholic steatohepatitis (PHILLIPS) Alpha Fetoprotein Today K75.81 - Nonalcoholic steatohepatitis (PHILLIPS) US abdomen complete Today K75.81 - Nonalcoholic steatohepatitis (PHILLIPS) Medications: New sennosides (Senna Laxative) 17.2 mg (2 x 8.6 mg) PO BEDTIME 60 tabs 6RF K58.2 - Mixed irritable bowel syndrome Coding Level of Care Code Est Pt Level 3 (52416) Diagnoses Irritable bowel syndrome with constipation and diarrhea K58.2 Dysuria R30.0 PHILLIPS (nonalcoholic steatohepatitis) K75.81 GERD (gastroesophageal reflux disease) K21.9
== END 2023-06-30 13:37 | disposition home or self-care (01) ==
PROVIDERS: Visit Provider Nurse Practitioner
DX: K58.2 Mixed irritable bowel syndrome (principal); R30.0 Dysuria; K75.81 Nonalcoholic steatohepatitis (NASH); K21.9 Gastro-esophageal reflux disease without esophagitis
CPT/HCPCS: 99213

== ENCOUNTER → 2023-06-29 15:52 | Outpatient (BNVA) | payer OTHER, SELFPAY | PROVIDERS: Visit Provider Nurse Practitioner | DX: K58.2 Mixed irritable bowel syndrome (principal); K75.81 Nonalcoholic steatohepatitis (NASH); K21.9 Gastro-esophageal reflux disease without esophagitis; R30.0 Dysuria | CPT/HCPCS: 99212 ==

== ENCOUNTER 2023-08-05 10:32 | Outpatient (REF) | payer OTHER, SELFPAY ==
[2023-08-05 13:18] LABS: Appearance Urine Turbid; Color Urine Dark Yellow; Glucose Urine UA Negative (Negative); Leukocyte Esterase Urine Negative (Negative); Nitrite Urine Negative (Negative); PH 5.5 (5.0-9.0); Specific Gravity - Urine 1.025 (1.005-1.025); Urine Blood Negative (Negative); Urine Ketones Trace mg/dL (Negative); Urine Protein Negative (Neg-Trace)
[2023-08-05 13:55] LABS: Alanine Aminotransferase 53 U/L (0-40); Albumin Level 4.8 g/dL (3.5-5.0); Alkaline Phosphatase 57 U/L (39-117); Aspartate Amino Transferase 32 U/L (5-37); Bilirubin Direct 0.4 mg/dL (0.0-0.5); Bilirubin Total 1.1 mg/dL (0.0-1.0); Total Protein 7.7 g/dL (6.5-8.0)
== END 2023-08-05 10:33 | disposition home or self-care (01) ==
LOC: HO.HMGCLDS 10:32
PROVIDERS: PCP Internal Medicine; Visit Provider Nurse Practitioner
DX: R30.0 Dysuria (principal); K75.81 Nonalcoholic steatohepatitis (NASH)
CPT/HCPCS: 36415; 80076; 81003; 82105

== ENCOUNTER 2023-08-10 07:51 | Outpatient (REF) | payer OTHER, SELFPAY ==
--- NOTE | ~2023-08-10 | US_ITS ---
EXAMINATION: US ABDOMEN COMPLETE CLINICAL INFORMATION: Nonalcoholic steatohepatitis (PHILLIPS). COMPARISON: None available. TECHNIQUE: Real-time imaging of the abdominal viscera. Limited visualization due to bowel gas and body habitus. FINDINGS: PANCREAS: Normal. ABDOMINAL AORTA: The proximal, mid, and distal segments are normal in caliber. INFERIOR VENA CAVA: Visualized portions are normal. LIVER: Increased hepatic parenchymal heterogeneity and echogenicity which could be associated with hepatic steatosis or hepatocellular disease and substantially limits visualization. GALLBLADDER: No gallstones. Borderline gallbladder wall thickening of 0.33 cm. COMMON BILE DUCT: Abnormal in caliber measuring 0.62 cm in diameter. RIGHT KIDNEY: No hydronephrosis. No renal calculi. Limited visualization. The kidney measures 10.7 cm in maximum dimension. LEFT KIDNEY: No hydronephrosis. No renal calculi. Limited visualization. The kidney measures 11.3 cm in maximum dimension. SPLEEN: Normal. The spleen measures 12.5 cm in maximum dimension. FREE FLUID: None. US/US abdomen complete IMPRESSION: 1. Common bile duct is abnormal in caliber measuring 0.6 cm. No gallstones identified. Borderline gallbladder wall thickening of 0.33 cm. 2. Increased hepatic parenchymal heterogeneity and echogenicity which could be associated with hepatic steatosis or hepatocellular disease and substantially limits visualization. 3. Spleen upper limits of normal in size, 12.5 cm. 4. Correlation with clinical exam recommended to determine further management. MR/MRCP could be considered for further evaluation.
== END 2023-08-10 07:52 | disposition home or self-care (01) ==
LOC: HO.US 07:51
PROVIDERS: PCP Internal Medicine; Visit Provider Nurse Practitioner
DX: K75.81 Nonalcoholic steatohepatitis (NASH) (principal)
CPT/HCPCS: 76700

== ENCOUNTER 2023-08-25 15:50 | Outpatient (AMB) | payer OTHER, SELFPAY ==
--- NOTE | 2023-08-25 15:57 | MHC.OFFVIS ---
Intake Vital Signs 08/25/23 15:58 Height 5 ft 10 in Weight 182 lb 15.739 oz BMI 26.3 BP 119/84 Blood Pressure Location Lt brachial Position Sitting Pulse 74 Intake Visit Reasons: 4 weeks follow up Intake Note: Patient presents to in office visit today in follow up of abdominal pain. CC: Patient states he continues having LLQ abdominal pain with radiation to left groin. He also still has constipation sometimes. Per patient when he coughs his LLQ abdominal area hurts. Patient states he had to start taking senna every other day because he was getting loose stools and diarrhea when taking every night. Retail Service Specialist Required: No Allergies No Known Allergies [No Known Allergies*] Allergy (Verified 08/25/23 16:01) HPI 4 weeks follow up HPI Details Assessment & Plan (1) Irritable bowel syndrome with constipation and diarrhea: Code(s): K58.2 - Mixed irritable bowel syndrome Plan: He has been having more pain in the left lower quadrant. This tends to radiate into lay in sometimes even into the scrotum. With this, he also has increasing constipation. He stopped taking the MiraLax because it was causing him to have the urgently use bathroom it inconvenient times a and he replaced this with gummy fibers. However this clearly is not doing enough for. I suggest that instead we try senna since a pill form may be easier to titrate to what he needs. I let know he can experiment with taking it as needed, every day or every other day or in any way that seems to keep him where he needs to be without pain. He also has a history of back problems and recently had an MRI. However, he seems to have more low lumbar issues with no signs of spinal impingement at L1 or L2 that would tend to radiate to the groin. I did an SI joint examined this does not seem to be the case either. He is also complaining of dysuria with his urine looking more yellow and feeling more hot as it passes out of the urethra. He also tends to have dribbling in between urination. He presented to the ER for this and they did a postvoid residual that was normal however this does not exclude possible problems with the prostate and urine being reservoir in the urethra somewhere. I will get a UA since this is easy to see if there is an infection contributing to his symptoms.. He recently stopped his Seroquel because he was having erectile dysfunction. His normal function returned quickly after he sees this medication. I did tell him there are new or antidepressants on the market that do not cause this so much in case she should need 1 in the future. Viibryd is 1 of the but there are also other new medications but I am not as familiar with them since I am not prescribing in the primary care setting recently. He feels that his mood is well controlled and while he has some irritability he credits this to situational stresses at home. Return office visit in 4 weeks. Next visit ask him to go for labs and ultrasound for his PHILLIPS since he is due. (2) Dysuria: Code(s): R30.0 - Dysuria (3) PHILLIPS (nonalcoholic steatohepatitis): Comment: 09/29/22 Ferritin 130 GGT 86 H C-Reactive Protein 0.26 Amylase 43 Lipase 20 Alpha Fetoprotein 4.3 TSH 2.39 MYNOR Screen POSITIVE A MYNOR Titer 1:40 H Anti-Mitochondrial Ab NEGATIVE Anti-Smooth Muscle Ab <20 Tiss Transglutamin IgG <1.0 Tiss Transglutamin IgA <1.0 Hepatitis A IgM Ab Nonreactive Hep Bs Antigen Negative Hep Bs Antibody REACTIVE Hep B Core Total Ab Nonreactive Hepatitis C Ab (EIA) Nonreactive HIV 1&2 Ab/P24 Ag 4thGn Nonreactive ULTRASOUND OF THE ABDOMEN. 11/03/22? US/US abdomen complete IMPRESSION: Hepatic steatosis. Stable borderline enlarged spleen 13.3 cm. Code(s): K75.81 - Nonalcoholic steatohepatitis (PHILLIPS) (4) GERD (gastroesophageal reflux disease): Code(s): K21.9 - Gastro-esophageal reflux disease without esophagitis Plan: I gave him a trial of omeprazole, but he has not needed it and I think this may be more driven by constipation anything else. Orders: Orders UA CC w/rflx Micro + Cult Today R30.0 - Dysuria Liver Panel Today K75.81 - Nonalcoho lic steatohepatiti s (PHILLIPS) Alpha Fetoprotein Today K75.81 - Nonalcoho lic steatohepatiti s (PHILLIPS) US abdomen complet e Today K75.81 - Nonalcoho lic steatohepatiti s (PHILLIPS) Medications: New sennosides (Senna Laxative) 17.2 mg (2 x 8.6 m g) PO BEDTIME 60 t abs 6RF K58.2 - Mixed irri table bowel syndro me LABS: Laboratory Tests 08/05/23 10:58 Total Bilirubin 1.1 H Direct Bilirubin 0.4 AST 32 ALT 53 H Alkaline Phosphata se 57 08/05/23 Collection Gurjit e: 1047 Source: Urin e, Clean Catch Test Result Flag Refere nce Si te Ur Color Da rk Yellow Ur Appear T urbid P H 5. 5 5.0-9.0 Ur Glu Negati ve Negative mg/d L Urine Blood Negative Negative Spec Gr avity Ur 1.025 1.005-1.025 Urine Pro tein Negative N eg-Trace mg/dL Urine [place] es Trace Neg ative mg/dL Ur Nitrite Negative Negat silas Ur Fausto Esterase Negative Negativ e ULTRASOUND OF THE ABDOMEN 08/11/23 FINDINGS: PANCREAS: Normal. ABDOMINAL AORTA: The proximal, mid, and distal segments are normal in caliber. INFERIOR VENA CAVA: Visualized portions are normal. LIVER: Increased hepatic parenchymal heterogeneity and echogenicity which could be associated with hepatic steatosis or hepatocellular disease and substantially limits visualization. GALLBLADDER: No gallstones. Borderline gallbladder wall thickening of 0.33 cm. COMMON BILE DUCT: Abnormal in caliber measuring 0.62 cm in diameter. RIGHT KIDNEY: No hydronephrosis. No renal calculi. Limited visualization. The kidney measures 10.7 cm in maximum dimension. LEFT KIDNEY: No hydronephrosis. No renal calculi. Limited visualization. The kidney measures 11.3 cm in maximum dimension. SPLEEN: Normal. The spleen measures 12.5 cm in maximum dimension. FREE FLUID: None. US/US abdomen complete IMPRESSION: 1. Common bile duct is abnormal in caliber measuring 0.6 cm. No gallstones identified. Borderline gallbladder wall thickening of 0.33 cm. 2. Increased hepatic parenchymal heterogeneity and echogenicity which could be associated with hepatic steatosis or hepatocellular disease and substantially limits visualization. 3. Spleen upper limits of normal in size, 12.5 cm. 4. Correlation with clinical exam recommended to determine further management. MR/MRCP could be considered for further evaluation. TODAY'S VISIT. We review the results and I tell him that his transaminitis does not appear to be significantly different than his prior baseline studies. The only new finding on the ultrasound is the possibility of a slightly enlarged common bile duct have possible gallbladder polyp. However, sometimes ultrasound is not the most accurate study the smaller structures so I suggest that we do a CT scan at progressed MRI if needed. Given the fact that he has an elevated bilirubin level, although not an elevated alk-phos, this is probably prudent. He is noted with his twinges of pain in the left lower quadrant/left groin that when he coughs he feels more pain any tends to feel something bulging. It is possible that this is a developing inguinal hernia and is too bad we did not think of this possibility before his ultrasound. Will get another ultrasound to check this out. He is happy about this. His urinalysis did not show me any diarrhea reason for his urinary issues so I suggest that he check with the urologist going forward if he has continued difficulties. He did have a lot of success with senna as he would take 2 pills either every night or every other day and still would have multiple bowel movements with watery diarrhea. However, he did not try taking just 1 pill at night and I suggest this going forward or even starting with 1 every other day to see if we can even out his bowel movements. He says he will do this. A return office visit in 6 weeks. [facility] Medical History Irritable bowel syndrome with constipation Irritable bowel syndrome with constipation and diarrhea Erectile dysfunction Lumbar disc herniation with radiculopathy Inattention Difficulty concentrating Recurrent mild major depressive disorder with anxiety Lumbago Mild intermittent asthma Surgical History No pertinent past surgical history Family History Father Depression Mental health disorder Mother Breast cancer Polycystic kidney disease Maternal Grandmother Stomach cancer Maternal Grandfather Bone cancer Brother No problems noted. Brother No problems noted. Brother No problems noted. Paternal Uncle Substance use disorder Paternal Aunt Substance use disorder Social History Housing: Apartment Alcohol intake: never Patient Tobacco Use Status: Never used Tobacco e-Cigarette/Vaping Use: Never Used service: No Current occupational status: employed Cognitive needs: No Hearing needs: No Vision needs: Yes Review of Systems Const Denies fatigue, Denies fever(s), Denies night sweats, Denies poor appetite and Denies weight loss Eyes Details: glasses Reports requires corrective lenses ENT Reports Normal hearing present, Denies dental pain, Denies dysphagia, Denies hearing loss, Denies mouth pain, Denies odynophagia, Denies throat swelling, Denies tongue swelling and Reports other (Dentition adequate) Card Reports no additional complaints Resp Reports no additional complaints GI Reports abdominal pain, Denies melena, Denies bloating, Denies hematochezia, Reports constipation, Denies GI cramping, Denies dysphagia, Denies excessive flatus, Denies early satiety, Reports heartburn, Denies diarrhea, Denies nausea, Denies odynophagia, Denies vomiting and Denies hematemesis Skin/Breast Denies pruritus, Denies lesions, Denies rash and Denies jaundice Neuro Reports Normal hearing present and Denies Abnormal speech present Endo Denies fatigue Aller/Immun Denies throat swelling and Denies tongue swelling Physical Exam Vital Signs: Last Vital Signs Pulse 74 08/25/23 15:58 BP 119/84 08/25/23 15:58 BMI result Body Mass Index 26.3 Const General: cooperative, no acute distress, well developed and well groomed Nutritional Appearance: average body habitus and well nourished Orientation/consciousness: oriented to person, oriented to place and oriented to time Limitations: No language barrier HEENT Head: Yes normocephalic and Yes atraumatic Eyes General: appearance normal, both eyes and all related structures Pupils: Equal, round and reactive pupils present Neck Neck: Yes normal visual inspection and Yes no lymphadenopathy Thyroid: Thyroid normal Resp Effort & Inspection: normal respiratory effort and able to speak in complete sentences Auscultation: clear to auscultation bilaterally Cardio Rate: regular rate Rhythm: regular rhythm Heart sounds: Normal, physiologic split S2 sound present Peripheral pulses: radial pulses present and posterior tibial pulses present GI Inspection: No distended and No Abdominal panniculus present Palpation (GI): Soft to palpation, nontender, no guarding, not rigid and No hepatosplenomegaly present Percussion: Yes normal to percussion Auscultation: normal bowel sounds Rectal Exam - Male: Yes deferred Skin General skin exam: no rashes or lesions noted, turgor normal, skin not dry, no jaundice, No spider nevi and no striae Rashes: no rashes Nails: normal Neuro General: oriented to person, oriented to place and oriented to time Cranial nerves: Yes Equal, round and reactive pupils present and Yes Normal hearing present Speech: No Abnormal speech present Extrem General: Yes normal to inspection, No clubbing, No cyanosis and No edema Psych Appearance: grossly normal and well kempt Mental Status: mental status grossly normal Speech and movement: Normal speech and movement present Affect: normal affect Attitude: cooperative Thought process: Normal thought process present and not confabulating Thought content: Normal thought content present Insight: Fair insight present (Psych) Judgement: Fair judgement present (Psych) Results Reviewed Results Reviewed: Laboratory Tests 08/05/23 10:58 Total Bilirubin 1.1 H Direct Bilirubin 0.4 AST 32 ALT 53 H Alkaline Phosphatase 57 08/05/23 Collection Time: 1047 Source: Urine, Clean Catch Test Result Flag Reference Site Ur Color Dark Yellow Ur Appear Turbid PH 5.5 5.0-9.0 Ur Glu Negative Negative mg/dL Urine Blood Negative Negative Spec [place] Ur 1.025 1.005-1.025 Urine Protein Negative Neg-Trace mg/dL Urine Ketones Trace Negative mg/dL Ur Nitrite Negative Negative Ur Fausto Esterase Negative Negative Assessment & Plan Assessment & Plan (1) PHILLIPS (nonalcoholic steatohepatitis): Comment: BASELINE LABS 09/29/22 Ferritin 130 GGT 86 H C-Reactive Protein 0.26 Amylase 43 Lipase 20 Alpha Fetoprotein 4.3 TSH 2.39 MYNOR Screen POSITIVE A MYNOR Titer 1:40 H Anti-Mitochondrial Ab NEGATIVE Anti-Smooth Muscle Ab <20 Tiss Transglutamin IgG <1.0 Tiss Transglutamin IgA <1.0 Hepatitis A IgM Ab Nonreactive Hep Bs Antigen Negative Hep Bs Antibody REACTIVE Hep B Core Total Ab Nonreactive Hepatitis C Ab (EIA) Nonreactive HIV 1&2 Ab/P24 Ag 4thGn Nonreactive 07/11/22 07/11/22 10:14 10:14 WBC 4.8 Hgb 15.7 Hct 45.8 Estimated GFR > 60 Total Bilirubin 0.8 AST 33 ALT 61 H Alkaline Phosphata se 67 CURRENT LABS 08/05/23 10:58 Total Bilirubin 1.1 H Direct Bilirubin 0.4 AST 32 ALT 53 H Alkaline Phosphatase 57 ULTRASOUND OF THE ABDOMEN 08/11/23 FINDINGS: PANCREAS: Normal. ABDOMINAL AORTA: The proximal, mid, and distal segments are normal in caliber. INFERIOR VENA CAVA: Visualized portions are normal. LIVER: Increased hepatic parenchymal heterogeneity and echogenicity which could be associated with hepatic steatosis or hepatocellular disease and substantially limits visualization. GALLBLADDER: No gallstones. Borderline gallbladder wall thickening of 0.33 cm. COMMON BILE DUCT: Abnormal in caliber measuring 0.62 cm in diameter. RIGHT KIDNEY: No hydronephrosis. No renal calculi. Limited visualization. The kidney measures 10.7 cm in maximum dimension. LEFT KIDNEY: No hydronephrosis. No renal calculi. Limited visualization. The kidney measures 11.3 cm in maximum dimension. SPLEEN: Normal. The spleen measures 12.5 cm in maximum dimension. FREE FLUID: None. US/US abdomen complete IMPRESSION: 1. Common bile duct is abnormal in caliber measuring 0.6 cm. No gallstones identified. Borderline gallbladder wall thickening of 0.33 cm. 2. Increased hepatic parenchymal heterogeneity and echogenicity which could be associated with hepatic steatosis or hepatocellular disease and substantially limits visualization. 3. Spleen upper limits of normal in size, 12.5 cm. 4. Correlation with clinical exam recommended to determine further management. MR/MRCP could be considered for further evaluation. Code(s): K75.81 - Nonalcoholic steatohepatitis (PHILLIPS) (2) GERD (gastroesophageal reflux disease): Code(s): K21.9 - Gastro-esophageal reflux disease without esophagitis (3) Irritable bowel syndrome with constipation and diarrhea: Code(s): K58.2 - Mixed irritable bowel syndrome (4) Abnormal US (ultrasound) of abdomen: Comment: ? CBD enlarged GB polyp Code(s): R93.5 - Abnormal findings on diagnostic imaging of other abdominal regions, including retroperitoneum (5) Left groin pain: Code(s): R10.32 - Left lower quadrant pain Plan We review the results and I tell him that his transaminitis does not appear to be significantly different than his prior baseline studies. The only new finding on the ultrasound is the possibility of a slightly enlarged common bile duct have possible gallbladder polyp. However, sometimes ultrasound is not the most accurate study the smaller structures so I suggest that we do a CT scan at progressed MRI if needed. Given the fact that he has an elevated bilirubin level, although not an elevated alk-phos, this is probably prudent. He is noted with his twinges of pain in the left lower quadrant/left groin that when he coughs he feels more pain any tends to feel something bulging. It is possible that this is a developing inguinal hernia and is too bad we did not think of this possibility before his ultrasound. Will get another ultrasound to check this out. He is happy about this. His urinalysis did not show me any diarrhea reason for his urinary issues so I suggest that he check with the urologist going forward if he has continued difficulties. He did have a lot of success with senna as he would take 2 pills either every night or every other day and still would have multiple bowel movements with watery diarrhea. However, he did not try taking just 1 pill at night and I suggest this going forward or even starting with 1 every other day to see if we can even out his bowel movements. He says he will do this. A return office visit in 6 weeks. Orders: Orders US abdomen limited Today R10.32 - Left lower quadrant pain CT abdomen wo/w IV con Today R10.32 - Left lower quadrant pain, R17 - Unspecified jaundice, R93.5 - Abnormal findings on diagnostic imaging of other abdominal regions, including retroperitoneum Medications: Refilled omeprazole 20 mg PO DAILY 30 tabs 6RF sennosides (Senna Laxative) 17.2 mg (2 x 8.6 mg) PO BEDTIME 60 tabs 6RF K58.2 - Mixed irritable bowel syndrome Coding Level of Care Code Est Pt Level 4 (97215) Diagnoses PHILLIPS (nonalcoholic steatohepatitis) K75.81 GERD (gastroesophageal reflux disease) K21.9 Irritable bowel syndrome with constipation and diarrhea K58.2 Abnormal US (ultrasound) of abdomen R93.5 Left groin pain R10.32
[2023-08-25 15:58] VITALS: BP 119/84; PULSE 74; BMI 26.3
== END 2023-08-25 16:49 | disposition home or self-care (01) ==
PROVIDERS: PCP Internal Medicine; Visit Provider Nurse Practitioner
DX: K75.81 Nonalcoholic steatohepatitis (NASH) (principal); K21.9 Gastro-esophageal reflux disease without esophagitis; K58.2 Mixed irritable bowel syndrome; R93.5 Abnormal findings on diagnostic imaging of other abdominal regions, including retroperitoneum; R10.32 Left lower quadrant pain
CPT/HCPCS: 99214

== ENCOUNTER → 2023-08-25 15:50 | Outpatient (BNVA) | payer OTHER, SELFPAY | PROVIDERS: PCP Internal Medicine; Visit Provider Nurse Practitioner | DX: K75.81 Nonalcoholic steatohepatitis (NASH) (principal); K21.9 Gastro-esophageal reflux disease without esophagitis; K58.2 Mixed irritable bowel syndrome; R93.5 Abnormal findings on diagnostic imaging of other abdominal regions, including retroperitoneum; R10.32 Left lower quadrant pain | CPT/HCPCS: 99212 ==

== ENCOUNTER 2023-08-31 10:17 | Outpatient (AMB) | payer OTHER, SELFPAY ==
--- NOTE | 2023-08-31 10:36 | A.OFFPC_ITS ---
Vital Signs 08/31/23 10:42 Height 5 ft 10 in Weight 183 lb 4 oz BMI 26.3 BP 110/78 Blood Pressure Location Lt brachial Position Sitting Pulse 87 Pulse Source Pulse Oximeter Pulse Oximetry (%) 96 Oxygen Delivery Method Room Air Intake Visit Reasons: discuss physical therapy referral for back Intake Note: Pt is here lower back pain and side pain that started to get bad in 03/12 when pt went to the ER and pt wants a referral for PT Allergies No Known Allergies [No Known Allergies*] Allergy (Verified 08/31/23 10:53) Medication List - Last Reconciled 08/31/23 by Karen Abdi MD albuterol sulfate 90 mcg/actuation 2 puffs inhalation Q6H PRN ibuprofen 600 mg PO Q8H PRN omeprazole 20 mg PO DAILY sennosides (Senna Laxative) 8.6 mg PO BEDTIME Tobacco use date assessed: 08/31/23 Dental Screening Dental Screen Date: 08/31/23 Did you have a dental visit in the last 12 months?: No Did you have a dental problem in the last 6 months where you did not have access to dental care?: No Was dental information given to patient?: No HPI discuss physical therapy referral for back HPI Details 38-year-old male here today complaining of chronic low back pain. An MRI was done February 2023 which showed posterior disc protrusion/extrusion at L5-S1 with impingement on the traversing S1 nerve roots bilaterally, more extensive on the left. There are also bilateral foraminal disc protrusions impinging on the exiting L5 nerve roots. There is no central stenosis. 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 He has been seen by new of spine surgery [facility] who recommended subdural injections and conservative management, as well as his spinal fusion which patient does not want to do at present time. He would like to be referred to physical therapy to try. He has no issues with urination, or defecation. He denies saddle anesthesia, has some nonspecific erectile dysfunction and occasional urinary leakage at the end of urination, denies any numbness, weakness in extremities. [facility] Medical History Irritable bowel syndrome with constipation Irritable bowel syndrome with constipation and diarrhea Erectile dysfunction Lumbar disc herniation with radiculopathy Inattention Difficulty concentrating Recurrent mild major depressive disorder with anxiety Lumbago Mild intermittent asthma Surgical History No pertinent past surgical history Family History Father Depression Mental health disorder Mother Breast cancer Polycystic kidney disease Maternal Grandmother Stomach cancer Maternal Grandfather Bone cancer Brother No problems noted. Brother No problems noted. Brother No problems noted. Paternal Uncle Substance use disorder Paternal Aunt Substance use disorder Social History Housing: Apartment Alcohol intake: never Patient Tobacco Use Status: Never used Tobacco e-Cigarette/Vaping Use: Never Used service: No Current occupational status: employed Cognitive needs: No Hearing needs: No Vision needs: Yes Questionnaire Thrive Questionnaire Date Thrive assessed: 04/15/23 KINGSLEY-7 AMB Questionnaire KINGSLEY-7 Date KINGSLEY - 7 assessed: 04/15/23 Source: Developed by Drs. Jeremie Medina, Jeannine Mc, Ravi Rock and colleagues, with an educational gal from [employer]. Review of Systems Const Denies fever(s), Denies night sweats, Denies poor appetite and Denies weight loss Eyes Details: glasses Reports requires corrective lenses ENT Reports Normal hearing present, Denies dysphagia, Denies hearing loss, Denies mouth pain, Denies odynophagia and Denies tongue swelling Card Reports no additional complaints Resp Reports no additional complaints GI Denies abdominal pain, Denies melena, Denies bloating, Denies hematochezia, Reports constipation, Denies GI cramping, Denies dysphagia, Denies excessive flatus, Denies early satiety, Reports heartburn, Denies diarrhea, Denies nausea and Denies odynophagia Reports as per HPI Skin/Breast Denies pruritus, Denies lesions, Denies rash and Denies jaundice Neuro Reports as per HPI, Reports Normal hearing present and Denies Abnormal speech present Psych Reports as per HPI Endo Reports no additional complaints Jori/Lymph Reports no additional complaints Aller/Immun Denies tongue swelling Physical exam (Primary Care) Vital Signs: Last Vital Signs Pulse 87 08/31/23 10:42 BP 110/78 12/12/23 10:42 Pulse Ox 96 08/31/23 10:42 Oxygen Delivery Method Room Air 08/31/23 10:42 BMI result Body Mass Index 26.3 Tobacco/Smoking Status: Tobacco use Status Tobacco use date assessed 08/31/23 08/31/23 10:50 Patient Tobacco Use Status Never used Tobacco 08/31/23 10:36 e-Cigarette/Vaping Use Never Used 08/31/23 10:36 Thrive Assessment: Date of Thrive Assessment Date Thrive assessed 04/15/23 08/31/23 10:36 Const General: no acute distress and alert Nutritional Appearance: average body habitus Orientation/consciousness: patient oriented x3 HENMT Mouth: Normal oral and palatal mucosa present, tongue normal, oropharynx normal and moist mucous membranes Neck Neck: Yes full ROM, Yes no lymphadenopathy and Yes supple Thyroid: Thyroid normal Chest Chest palpation & inspection: normal inspection of the chest Resp Auscultation: clear to auscultation bilaterally Cardio Rate: regular rate Rhythm: regular rhythm Heart sounds: S1 normal heart sound present and S2 normal heart sound present GI Palpation (GI): Soft to palpation, nontender, no guarding and no masses Auscultation: normal bowel sounds Back/Spine/Pelvis Back: back tenderness (Some paraspinal tenderness on lumbar area) Thoracic/Lumbar Spine: straight leg raise negative bilaterally and paraspinal muscle tenderness bilaterally in the lower lumbar Skin General skin exam: no rashes or lesions noted Neuro General: patient oriented x3, gait normal, tone normal, Normal light touch and pain sensation, no focal motor deficits and CN's II-XI intact bilaterally Cranial nerves: Yes Normal hearing present Cognition (Neuro): normal cognition Speech: No Abnormal speech present Gait exam (Neuro): Normal gait present Motor exam (neuro): 5/5 motor strength present throughout Sensory Exam: double simultaneous stimulation for sensation normal Deep tendon reflexes (DTR's): Right patellar reflex intensity grade: 1+, Left patellar reflex intensity grade: 1+, Right ankle reflex intensity grade: 1+ and Left ankle reflex intensity grade: 1+ Extrem General: Yes full ROM, Yes no joint enlargement, Yes no clubbing, cyanosis or edema, Yes no calf tenderness and Yes normal gait Office Procedures Flu Questionnaire Does the patient have a severe egg allergy?: No Does the patient have severe life threatening allergies?: No Does the patient have a fever or illness today?: No Has the patient ever had Guillain-Plush Syndrome?: No Has the patient ever had any past reaction to a flu shot?: No Immunizations flu vacc [id number] 6mos up(PF) 60 mcg(15 mcgx4)/0.5 mL IM syringe Performing Provider: Karen Abdi MD Performing Location: [facility] [place] [facility] Administered by: Diane Bray CMA on 08/31/23 11:13 Dose Route Admin Location Dispensed Lot Number Expiration Date [employer] 0.5 mL IM Left Deltoid 0.5 mL [id number] 03/19/24 [id number] [employer] VIS Given Date VIS Provided VIS Publication Date 08/31/23 Single Vaccine 21 Eligibility Eligibility Date Funding Source Not VFC Eligible 08/31/23 Private Assessment and Plan Assessment & Plan (1) Lumbar disc herniation with radiculopathy: Code(s): M51.16 - Intervertebral disc disorders with radiculopathy, lumbar region Plan: Referred to physical therapy further evaluation management. Will refer back to neurosurgery to consider other treatment options if no improvement with physical therapy. Advised patient that if pain worsens, if he develops new numbness, tingling, weakness, loss of function or incontinence call 911 or come back to the ER right away for evaluation. Orders: Orders PT Evaluation and Treatment Today M51.16 - Intervertebral disc disorders with radiculopathy, lumbar region Medications: Changed From sennosides (Senna Laxative) 17.2 mg (2 x 8.6 mg) PO BEDTIME 60 tabs 6RF K58.2 - Mixed irritable bowel syndrome To sennosides (Senna Laxative) 8.6 mg PO BEDTIME K58.2 - Mixed irritable bowel syndrome Coding Level of Care Code Est Pt Level 4 (64610) Diagnoses Lumbar disc herniation with radiculopathy M51.16
[2023-08-31 10:42] VITALS: BP 110/78; PULSE 87; O2SAT 96; BMI 26.3
== END 2023-08-31 12:35 | disposition home or self-care (01) ==
PROVIDERS: PCP Internal Medicine; Visit Provider Internal Medicine
DX: Z23 Encounter for immunization (principal); M51.16 Intervertebral disc disorders with radiculopathy, lumbar region
CPT/HCPCS: 90471; 90686; 99214

== ENCOUNTER 2023-09-27 09:03 | Outpatient (AMB) | payer OTHER, SELFPAY ==
--- NOTE | 2023-09-27 09:44 | MHC.OFFWIV ---
Intake Vital Signs 09/27/23 09:45 Height 5 ft 10 in Weight 182 lb BMI 26.1 BP 118/70 Blood Pressure Location Rt brachial Position Sitting Pulse 81 Pulse Source Pulse Oximeter Temp 97.1 F Temp Source Temporal Artery Scan Pulse Oximetry (%) 96 Oxygen Delivery Method Room Air Intake Visit Reasons: EP Back/Lower LT AB pain Intake Note: pt is here today for back/lower lft AB pain started 09/14 Patient Tobacco Use Status: Never used Tobacco Allergies No Known Allergies [No Known Allergies*] Allergy (Verified 09/27/23 10:00) Do you need a note to return to daycare/school/sports/work: No HPI EP Back/Lower LT AB pain HPI Details This is a 38 year old male patient who comes into the [place] clinic with two complaints. He has had left lower inguinal pain for the last 2 weeks. He was seen by GI who ordered a pelvic US which is scheduled 10/14. Patient reports pain is increasing, particularly with straining. He is voiding w/o difficultly. Having some constipation however this is has been improved with senna and increased fiber. He also reports lower back pain. He states he had an MRI which showed disc herniation. He states he was seen by a provider who recommended PT and injections, however he would like a second opinion and is requesting referral to see [facility]. He denies any leg weakness, numbness, paresthesias, or saddle anesthesia. Lumbar spine MRI: 1. There is a posterior disc protrusion/extrusion at L5-S1 with impingement on the traversing S1 nerve roots bilaterally, more extensive on the left. There are also bilateral foraminal disc protrusions impinging on the exiting L5 nerve roots. There is no central stenosis. [facility] Medical History Irritable bowel syndrome with constipation Irritable bowel syndrome with constipation and diarrhea Erectile dysfunction Lumbar disc herniation with radiculopathy Inattention Difficulty concentrating Recurrent mild major depressive disorder with anxiety Lumbago Mild intermittent asthma Surgical History No pertinent past surgical history Family History Father Depression Mental health disorder Mother Breast cancer Polycystic kidney disease Maternal Grandmother Stomach cancer Maternal Grandfather Bone cancer Brother No problems noted. Brother No problems noted. Brother No problems noted. Paternal Uncle Substance use disorder Paternal Aunt Substance use disorder Social History Housing: Apartment Alcohol intake: never Patient Tobacco Use Status: Never used Tobacco e-Cigarette/Vaping Use: Never Used service: No Current occupational status: employed Cognitive needs: No Hearing needs: No Vision needs: Yes Review of Systems Const All systems reviewed & are unremarkable except as noted in HPI and below Physical Exam Vital Signs: Last Vital Signs Temp 97.1 F 09/27/23 09:45 Pulse 81 09/27/23 09:45 BP 118/70 09/27/23 09:45 Pulse Ox 96 09/27/23 09:45 Oxygen Delivery Method Room Air 09/27/23 09:45 BMI result Body Mass Index 26.1 Const General: cooperative, comfortable and no acute distress Resp Effort & Inspection: normal respiratory effort and able to speak in complete sentences Auscultation: clear to auscultation bilaterally Cardio Palpation: normal PMI Rate: regular rate Rhythm: regular rhythm GI Other: slight left inguinal protrusion, worse with bearing down. Skin General skin exam: no rashes or lesions noted Extrem General: Yes capillary refill normal and Yes no clubbing, cyanosis or edema Psych Appearance: grossly normal Mental Status: mental status grossly normal Speech and movement: Normal speech and movement present Assessment & Plan Assessment & Plan (1) Left groin pain: Code(s): R10.32 - Left lower quadrant pain Plan: Followed by GI. US ordered to r/o inquinal hernia. I called US dept. and they were able to move patient's visit from later this month, to today at [facility]. Patient is pleased with this and will go today for appt. and f/u with GI as needed once results are available. (2) Lumbar disc herniation with radiculopathy: Code(s): M51.16 - Intervertebral disc disorders with radiculopathy, lumbar region Plan: Patient would like second opinion for lumbar disc herniation at [facility]. He does have b/l L5 and S1 nerve root impingement due to disc protrusions. He has been doing home exercise program as recommended but would like to see Dr. Mensah or Dr. Staley at [facility]. I explained that this referral may need to come from PCP. I will send message to Dr. Abdi describing this situation and see if referral can be entered for this. Patient agrees with this plan. We discussed that initial recommendations will likely be that of physical therapy and possible therapeutic injections prior to surgery. Coding Level of Care Code Est Pt Level 3 (45454) Diagnoses Left groin pain R10.32 Lumbar disc herniation with radiculopathy M51.16
[2023-09-27 09:45] VITALS: BP 118/70; PULSE 81; TEMP 36.2; O2SAT 96; BMI 26.1
== END 2023-09-27 11:31 | disposition home or self-care (01) ==
PROVIDERS: PCP Internal Medicine; Visit Provider Nurse Practitioner Family
DX: R10.32 Left lower quadrant pain (principal); M51.16 Intervertebral disc disorders with radiculopathy, lumbar region
CPT/HCPCS: 99213

== ENCOUNTER 2023-09-27 11:03 | Outpatient (REF) | payer OTHER, SELFPAY ==
--- NOTE | ~2023-09-27 | US_ITS ---
EXAMINATION: US PELVIS, LIMITED/FOLLOW UP CLINICAL INFORMATION: Left groin pain rule out hernia COMPARISON: CT abdomen and pelvis 08/13/2018 TECHNIQUE: Transabdominal views of the left inguinal soft tissues were obtained. FINDINGS: Small fat-containing left inguinal hernia. No definite herniated bowel however if any clinical concern CT pelvis could be obtained for further evaluation. US/US pelvic limited IMPRESSION: Small fat-containing left inguinal hernia. No definite herniated bowel however if any clinical concern CT pelvis could be obtained for further evaluation.
== END 2023-09-27 11:04 | disposition home or self-care (01) ==
LOC: HO.HMGCX 11:03
PROVIDERS: PCP Internal Medicine; Visit Provider Nurse Practitioner
DX: R10.32 Left lower quadrant pain (principal)
CPT/HCPCS: 76857

== ENCOUNTER 2023-10-06 14:49 | Outpatient (AMB) | payer OTHER, SELFPAY ==
--- NOTE | 2023-10-06 14:51 | A.OFFVIS_ITS ---
Intake Vital Signs 10/06/23 14:58 Height 5 ft 10 in Weight 180 lb 5.41 oz BMI 25.9 BP 117/77 Blood Pressure Location Lt brachial Position Sitting Pulse 86 Intake Visit Reasons: 6 week follow up Intake Note: Patient presents to in office visit today in follow up of US. CC: Patient states he continues having LLQ abdominal pain with radiation to left groin that it feels like it gets worst with time per PT. He also still has constipation sometimes. 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 Accompanied by: Self / Same As Patient Allergies No Known Allergies [No Known Allergies*] Allergy (Verified 10/06/23 15:08) HPI 6 week follow up HPI Details Assessment & Plan (1) PHILLIPS (nonalcoholic steatohepatitis): Comment: BASELINE LABS 09/29/22 Ferritin 130 GGT 86 H C-Reactive Protein 0.26 Amylase 43 Lipase 20 Alpha Fetoprotein 4.3 TSH 2.39 MYNOR Screen POSITIVE A MYNOR Titer 1:40 H Anti-Mitochondrial Ab NEGATIVE Anti-Smooth Muscle Ab <20 Tiss Transglutamin IgG <1.0 Tiss Transglutamin IgA <1.0 Hepatitis A IgM Ab Nonreactive Hep Bs Antigen Negative Hep Bs Antibody REACTIVE Hep B Core Total Ab Nonreactive Hepatitis C Ab (EIA) Nonreactive HIV 1&2 Ab/P24 Ag 4thGn Nonreactive 07/11/22 07/11/22 10:14 10:14 WBC 4.8 Hgb 15.7 Hct 45.8 Estimated GFR > 60 Total Bilirubin 0.8 AST 33 ALT 61 H Alkaline Phosphata se 67 CURRENT LABS 08/05/23 10:58 Total Bilirubin 1.1 H Direct Bilirubin 0.4 AST 32 ALT 53 H Alkaline Phosphatase 57 ULTRASOUND OF THE ABDOMEN 08/11/23 FINDINGS: PANCREAS: Normal. ABDOMINAL AORTA: The proximal, mid, and distal segments are normal in caliber. INFERIOR VENA CAVA: Visualized portions are normal. LIVER: Increased hepatic parenchymal heterogeneity and echogenicity which could be associated with hepatic steatosis or hepatocellular disease and substantially limits visualization. GALLBLADDER: No gallstones. Borderline gallbladder wall thickening of 0.33 cm. COMMON BILE DUCT: Abnormal in caliber measuring 0.62 cm in diameter. RIGHT KIDNEY: No hydronephrosis. No renal calculi. Limited visualization. The kidney measures 10.7 cm in maximum dimension. LEFT KIDNEY: No hydronephrosis. No renal calculi. Limited visualization. The kidney measures 11.3 cm in maximum dimension. SPLEEN: Normal. The spleen measures 12.5 cm in maximum dimension. FREE FLUID: None. US/US abdomen complete IMPRESSION: 1. Common bile duct is abnormal in calib er measuring 0.6 cm. No gallstones identified. Borderline gallbladder wall thickening of 0.33 cm. 2. Increased hepatic parenchymal heterog eneity and echogenicity which could be associated with hepatic steatosis or hepatocellular disease and substantially limits visualization. 3. Spleen upper limits of normal in size , 12.5 cm. 4. Correlation with clinical exam recomm ended to determine further management. MR/MRCP could be considered for further evaluation. Code(s): K75.81 - Nonalcoholic steatohepatitis (PHILLIPS) (2) GERD (gastroesophageal reflux diseas e): Code(s): K21.9 - Gastro-esophageal reflux disease without esophagitis (3) Irritable bowel syndrome with consti pation and diarrhea: Code(s): K58.2 - Mixed irritable bowel syndrome (4) Abnormal US (ultrasound) of abdomen: Comment: ? CBD enlarged GB polyp Code(s): R93.5 - Abnormal findings on diagnostic imaging of other abdominal regions, including retroperitoneum (5) Left groin pain: Code(s): R10.32 - Left lower quadrant pain Plan We review the results and I tell him that his transaminitis does not appear to be significantly different than his prior baseline studies. The only new finding on the ultrasound is the possibility of a slightly enlarged common bile duct have possible gallbladder polyp. However, sometimes ultrasound is not the most accurate study the smaller structures so I suggest that we do a CT scan at progressed MRI if needed. Given the fact that he has an elevated bilirubin level, although not an elevated alk-phos, this is probably prudent. He is noted with his twinges of pain in the left lower quadrant/left groin that when he coughs he feels more pain any tends to feel something bulging. It is possible that this is a developing inguinal hernia and is too bad we did not think of this possibility before his ultrasound. Will get another ultrasound to check this out. He is happy about this. His urinalysis did not show me any DIRECT reason for his urinary issues so I suggest that he check with the urologist going forward if he has continued difficulties. He did have a lot of success with senna as he would take 2 pills either every night or every other day and still would have multiple bowel movements with watery diarrhea. However, he did not try taking just 1 pill at night and I suggest this going forward or even starting with 1 every other day to see if we can even out his bowel movements. He says he will do this. A return office visit in 6 weeks. Orders: Orders US abdomen limited Today R10.32 - Left lowe r quadrant pain CT abdomen wo/w IV con Today R10.32 - Left lowe r quadrant pain, R 17 - Unspecified j bolivar, R93.5 - A bnormal findings o n diagnostic imagi ng of other abdomi nal regions, inclu ding retroperitone um Medications: Refilled omeprazole 20 mg PO DAILY 30 tabs 6RF sennosides (Senna Laxative) 17.2 mg (2 x 8.6 m g) PO BEDTIME 60 t abs 6RF K58.2 - Mixed irri table bowel syndro me BARIUM SWALLOW 11/20/22 FINDINGS: There is normal oral bolus control and transfer. Normal posterior tilt of the epiglottis with elevation of the hyoid. No cricopharyngeal abnormality. 13 mm barium tablet passed freely through the esophagus and into the stomach without delay. The esophagus was normal in course, caliber, and contour. There was normal distensibility with no fixed segment of narrowing. No focal mucosal abnormality was identified. No significant esophageal dysmotility was observed. Contrast passed freely across the gastroesophageal junction into the stomach. No significant hiatal hernia. Mild gastroesophageal reflux was observed. FLUOROSCOPY TIME: 1.4 minutes DOSE AREA PRODUCT: 8.658 Gy-cm2 (newton-centimeter squared) FL/FL barium swallow IMPRESSION: Mild gastroesophageal reflux noted. Otherwise unremarkable esophagram evaluation. CT OF THE ABDOMEN WITH AND WITHOUT IV CONTRAST Scheduled for 2023 Ultrasound of the PELVIS LEFT LOWER QUADRANT 08/11/23 09/27/23. FINDINGS: Small fat-containing left inguinal hernia. No definite herniated bowel however if any clinical concern CT pelvis could be obtained for further evaluation. US/US pelvic limited IMPRESSION: Small fat-containing left inguinal hernia. No definite herniated bowel however if any clinical concern CT pelvis could be obtained for further evaluation. TODAY'S VISIT. He has not been taking his omeprazole or his senna because he ran out of money for the copays. However he a chance to take 1 senna night for a while he ran and he found that this still was not completely emptying his bowels. As response someone bought him a fiber capsule and he has been taking this 3 times a day and he has seen some improvement in terms of the stool color and consistency. He is going to try increasing this to 4 times a day because he really likes this therapy. He can continue to experiment with this and the senna if he needs. The problem with the senna was if he took 2 he was having diarrhea as well as constipation. We review the ultrasound of the pelvis and he does have a left inguinal hernia that likely is contributing to the pain experienced when coughing. I tell him this of course would require surgery to correct which also will cost him money and right now it is very small hernia so he certainly can wait. He will let me know or he can let his primary know if he requests a referral to surgery to discuss repair. We get the CT scan scheduled today for October 22. This of course is to explore his possible hyperbilirubinemia and elevated common bile duct. It also be a 2nd look at the left lower quadrant to assess his hernia. Return office visit about a week after the CT scan so we can be sure to have the radiology read. [facility] Medical History Irritable bowel syndrome with constipation Irritable bowel syndrome with constipation and diarrhea Erectile dysfunction Lumbar disc herniation with radiculopathy Inattention Difficulty concentrating Recurrent mild major depressive disorder with anxiety Lumbago Mild intermittent asthma Surgical History No pertinent past surgical history Family History Father Depression Mental health disorder Mother Breast cancer Polycystic kidney disease Maternal Grandmother Stomach cancer Maternal Grandfather Bone cancer Brother No problems noted. Brother No problems noted. Brother No problems noted. Paternal Uncle Substance use disorder Paternal Aunt Substance use disorder Social History Housing: Apartment Alcohol intake: never Patient Tobacco Use Status: Never used Tobacco e-Cigarette/Vaping Use: Never Used service: No Current occupational status: employed Cognitive needs: No Hearing needs: No Vision needs: Yes Review of Systems Const Denies fatigue, Denies fever(s), Denies night sweats, Denies poor appetite and Denies weight loss Eyes Details: glasses Reports requires corrective lenses ENT Reports Normal hearing present, Denies dental pain, Denies dysphagia, Denies hearing loss, Denies mouth pain, Denies odynophagia, Denies throat swelling, Denies tongue swelling and Reports other (Dentition adequate) Card Reports no additional complaints Resp Reports no additional complaints GI Reports abdominal pain, Denies melena, Denies bloating, Denies hematochezia, Reports constipation, Denies GI cramping, Denies dysphagia, Denies excessive flatus, Denies early satiety, Reports heartburn, Denies diarrhea, Denies nausea, Denies odynophagia, Denies vomiting and Denies hematemesis Skin/Breast Denies pruritus, Denies lesions, Denies rash and Denies jaundice Neuro Reports Normal hearing present and Denies Abnormal speech present Endo Denies fatigue Aller/Immun Denies throat swelling and Denies tongue swelling Physical Exam Vital Signs: Last Vital Signs Pulse 86 10/06/23 14:58 BP 117/77 10/06/23 14:58 BMI result Body Mass Index 25.9 Const General: cooperative, no acute distress, well developed and well groomed Nutritional Appearance: average body habitus and well nourished Orientation/consciousness: oriented to person, oriented to place and oriented to time Limitations: No language barrier and ambulation with cane HEENT Head: Yes normocephalic and Yes atraumatic Eyes General: appearance normal, both eyes and all related structures Pupils: Equal, round and reactive pupils present Neck Neck: Yes normal visual inspection and Yes no lymphadenopathy Thyroid: Thyroid normal Resp Effort & Inspection: normal respiratory effort and able to speak in complete sentences Auscultation: clear to auscultation bilaterally Cardio Rate: regular rate Rhythm: regular rhythm Heart sounds: Normal, physiologic split S2 sound present Peripheral pulses: radial pulses present and posterior tibial pulses present GI Inspection: No distended and No Abdominal panniculus present Palpation (GI): Soft to palpation, nontender, no guarding, not rigid and No hepatosplenomegaly present Percussion: Yes normal to percussion Auscultation: normal bowel sounds Rectal Exam - Male: Yes deferred Skin General skin exam: no rashes or lesions noted, turgor normal, skin not dry, no jaundice, No spider nevi and no striae Rashes: no rashes Nails: normal Neuro General: oriented to person, oriented to place and oriented to time Cranial nerves: Yes Equal, round and reactive pupils present and Yes Normal hearing present Speech: No Abnormal speech present Extrem General: Yes normal to inspection, No clubbing, No cyanosis and No edema Psych Appearance: grossly normal and well kempt Mental Status: mental status grossly normal Speech and movement: Normal speech and movement present Affect: normal affect Attitude: cooperative Thought process: Normal thought process present and not confabulating Thought content: Normal thought content present Insight: Fair insight present (Psych) Judgement: Fair judgement present (Psych) Results Reviewed Results Reviewed: Ultrasound of the PELVIS LEFT LOWER QUADRANT 08/11/23 09/27/23. FINDINGS: Small fat-containing left inguinal hernia. No definite herniated bowel however if any clinical concern CT pelvis could be obtained for further evaluation. US/US pelvic limited IMPRESSION: Small fat-containing left inguinal hernia. No definite herniated bowel however if any clinical concern CT pelvis could be obtained for further evaluation. Assessment & Plan Assessment & Plan (1) LLQ abdominal pain: Code(s): R10.32 - Left lower quadrant pain (2) Elevated bilirubin: Code(s): R17 - Unspecified jaundice (3) Left groin pain: Code(s): R10.32 - Left lower quadrant pain (4) Abnormal US (ultrasound) of abdomen: Comment: ? CBD enlarged GB polyp Code(s): R93.5 - Abnormal findings on diagnostic imaging of other abdominal regions, including retroperitoneum (5) Irritable bowel syndrome with constipation and diarrhea: Code(s): K58.2 - Mixed irritable bowel syndrome (6) PHILLIPS (nonalcoholic steatohepatitis): Comment: BASELINE LABS 09/29/22 Ferritin 130 GGT 86 H C-Reactive Protein 0.26 Amylase 43 Lipase 20 Alpha Fetoprotein 4.3 TSH 2.39 MYNOR Screen POSITIVE A MYNOR Titer 1:40 H Anti-Mitochondrial Ab NEGATIVE Anti-Smooth Muscle Ab <20 Tiss Transglutamin IgG <1.0 Tiss Transglutamin IgA <1.0 Hepatitis A IgM Ab Nonreactive Hep Bs Antigen Negative Hep Bs Antibody REACTIVE Hep B Core Total Ab Nonreactive Hepatitis C Ab (EIA) Nonreactive HIV 1&2 Ab/P24 Ag 4thGn Nonreactive 07/11/22 07/11/22 10:14 10:14 WBC 4.8 Hgb 15.7 Hct 45.8 Estimated GFR > 60 Total Bilirubin 0.8 AST 33 ALT 61 H Alkaline Phosphata se 67 CURRENT LABS 08/05/23 10:58 Total Bilirubin 1.1 H Direct Bilirubin 0.4 AST 32 ALT 53 H Alkaline Phosphatase 57 ULTRASOUND OF THE ABDOMEN 08/11/23 FINDINGS: PANCREAS: Normal. ABDOMINAL AORTA: The proximal, mid, and distal segments are normal in caliber. INFERIOR VENA CAVA: Visualized portions are normal. LIVER: Increased hepatic parenchymal heterogeneity and echogenicity which could be associated with hepatic steatosis or hepatocellular disease and substantially limits visualization. GALLBLADDER: No gallstones. Borderline gallbladder wall thickening of 0.33 cm. COMMON BILE DUCT: Abnormal in caliber measuring 0.62 cm in diameter. RIGHT KIDNEY: No hydronephrosis. No renal calculi. Limited visualization. The kidney measures 10.7 cm in maximum dimension. LEFT KIDNEY: No hydronephrosis. No renal calculi. Limited visualization. The kidney measures 11.3 cm in maximum dimension. SPLEEN: Normal. The spleen measures 12.5 cm in maximum dimension. FREE FLUID: None. US/US abdomen complete IMPRESSION: 1. Common bile duct is abnormal in caliber measuring 0.6 cm. No gallstones identified. Borderline gallbladder wall thickening of 0.33 cm. 2. Increased hepatic parenchymal heterogeneity and echogenicity which could be associated with hepatic steatosis or hepatocellular disease and substantially limits visualization. 3. Spleen upper limits of normal in size, 12.5 cm. 4. Correlation with clinical exam recommended to determine further management. MR/MRCP could be considered for further evaluation. Code(s): K75.81 - Nonalcoholic steatohepatitis (PHILLIPS) (7) GERD (gastroesophageal reflux disease): Code(s): K21.9 - Gastro-esophageal reflux disease without esophagitis (8) Left inguinal hernia: Code(s): K40.90 - Unilateral inguinal hernia, without obstruction or gangrene, not specified as recurrent Plan He has not been taking his omeprazole or his senna because he ran out of money for the copays. However he a chance to take 1 senna night for a while he ran and he found that this still was not completely emptying his bowels. As response someone bought him a fiber capsule and he has been taking this 3 times a day and he has seen some improvement in terms of the stool color and consistency. He is going to try increasing this to 4 times a day because he really likes this therapy. He can continue to experiment with this and the senna if he needs. The problem with the senna was if he took 2 he was having diarrhea as well as constipation. We review the ultrasound of the pelvis and he does have a left inguinal hernia that likely is contributing to the pain experienced when coughing. I tell him this of course would require surgery to correct which also will cost him money and right now it is very small hernia so he certainly can wait. He will let me know or he can let his primary know if he requests a referral to surgery to discuss repair. We get the CT scan scheduled today for October 22. This of course is to explore his possible hyperbilirubinemia and elevated common bile duct. It also be a 2nd look at the left lower quadrant to assess his hernia. Return office visit about a week after the CT scan so we can be sure to have the radiology read. Medications: New omeprazole 20 mg PO DAILY 30 caps 6RF Coding Level of Care Code Est Pt Level 3 (58572) Diagnoses LLQ abdominal pain R10.32 Elevated bilirubin R17 Left groin pain R10.32 Abnormal US (ultrasound) of abdomen R93.5 Irritable bowel syndrome with constipation and diarrhea K58.2 PHILLIPS (nonalcoholic steatohepatitis) K75.81 GERD (gastroesophageal reflux disease) K21.9 Left inguinal hernia K40.90
[2023-10-06 14:58] VITALS: BP 117/77; PULSE 86; BMI 25.9
== END 2023-10-06 15:24 | disposition home or self-care (01) ==
PROVIDERS: PCP Internal Medicine; Visit Provider Nurse Practitioner
DX: R10.32 Left lower quadrant pain (principal); R17 Unspecified jaundice; R93.5 Abnormal findings on diagnostic imaging of other abdominal regions, including retroperitoneum; K58.2 Mixed irritable bowel syndrome; K75.81 Nonalcoholic steatohepatitis (NASH); K21.9 Gastro-esophageal reflux disease without esophagitis; K40.90 Unilateral inguinal hernia, without obstruction or gangrene, not specified as recurrent
CPT/HCPCS: 99213

== ENCOUNTER → 2023-10-06 14:49 | Outpatient (BNVA) | payer OTHER, SELFPAY | PROVIDERS: PCP Internal Medicine; Visit Provider Nurse Practitioner | DX: R10.32 Left lower quadrant pain (principal); R93.5 Abnormal findings on diagnostic imaging of other abdominal regions, including retroperitoneum; K58.2 Mixed irritable bowel syndrome; K75.81 Nonalcoholic steatohepatitis (NASH); K21.9 Gastro-esophageal reflux disease without esophagitis; K40.90 Unilateral inguinal hernia, without obstruction or gangrene, not specified as recurrent | CPT/HCPCS: 99212 ==

== ENCOUNTER 2023-10-22 05:58 | Outpatient (REF) | payer OTHER, SELFPAY ==
--- NOTE | ~2023-10-22 | CT_ITS ---
EXAMINATION: CT ABDOMEN AND PELVIS WITHOUT AND WITH CONTRAST CLINICAL INFORMATION: Unspecified jaundice. Left lower quadrant pain. Elevated bilirubin. COMPARISON: Abdominal ultrasound 08/10/2023 CT abdomen/pelvis 08/13/2018 TECHNIQUE: Multidetector volumetric imaging was performed of the abdomen and pelvis before and after the IV administration of 85 mL of Omnipaque 350 intravenous contrast. Sagittal and coronal reformatted images were obtained on the technologist's workstation. This CT examination was performed using dose optimization techniques as appropriate, variously including the following: *Automated exposure control *Adjustment of mA and/or kV according to patient size (this includes techniques or standardized protocols for targeted exams where dose is matched to indication/reason for exam; i.e. extremities or head) *Use of iterative reconstruction technique DLP: 1272 mGy-cm FINDINGS: LUNG BASES: The visualized lung bases are unremarkable. LIVER, GALLBLADDER, AND BILIARY TREE: The liver is normal in size and contour. Tiny hepatic hypodensity too small to characterize. The common duct measures 6 mm at the lola hepatis. No intrahepatic biliary ductal dilatation.. The gallbladder is unremarkable with no evidence of radiopaque gallstones, gallbladder wall thickening, or obvious pericholecystic inflammatory changes. PANCREAS: No ductal dilatation. SPLEEN: Not enlarged. ADRENAL GLANDS: No adrenal mass. KIDNEYS AND URETERS: The kidneys are normal in size, shape, and attenuation. No renal or ureteral calculus. No hydronephrosis or perinephric stranding. BLADDER: Circumferential wall thickening. GASTROINTESTINAL TRACT: Small and large bowel loops are of normal caliber. No small bowel obstruction. Marked stool throughout the colon. ABDOMINAL WALL: Small fat-containing left inguinal hernia. LYMPH NODES: No bulky lymphadenopathy. VASCULAR: Normal caliber abdominal aorta. PELVIC VISCERA: Heterogeneous appearance of the prostate gland with hypoattenuating foci. OSSEOUS STRUCTURES: No destructive bone lesions. CT/CT abdomen pelvis wo/w IV con IMPRESSION: Heterogeneous appearance of the prostate gland with hypoattenuating foci. Circumferential bladder wall thickening. Advise clinical correlation for infection. Mild dilatation of the common duct at the lola hepatis without intrahepatic biliary ductal dilatation or dilatation of the main pancreatic duct. The appearance is unchanged relative to the 08/13/2018 examination.
[2023-10-22] MEDS: iohexoL 350 MG/ML 75 ML INFUS..BTL 85 ML IV (08:47)
[2023-10-22] MEDS: Barium Sulfate Oral (Mocha) 450 ML ORAL.SUSP 900 ML PO (08:47)
== END 2023-10-22 05:59 | disposition home or self-care (01) ==
LOC: HO.CT 05:58
PROVIDERS: PCP Internal Medicine; Visit Provider Nurse Practitioner
DX: R17 Unspecified jaundice (principal); R10.32 Left lower quadrant pain; R93.5 Abnormal findings on diagnostic imaging of other abdominal regions, including retroperitoneum
CPT/HCPCS: 74178; Q9967

== ENCOUNTER 2023-10-27 11:46 | Outpatient (AMB) | payer OTHER, SELFPAY ==
[2023-10-27 12:12] VITALS: BP 110/78; PULSE 86; O2SAT 98; BMI 25.5
--- NOTE | 2023-10-27 12:12 | A.OFFPC_ITS ---
Vital Signs 10/27/23 12:12 Height 5 ft 10 in Weight 178 lb BMI 25.5 BP 110/78 Blood Pressure Location Rt brachial Position Sitting Pulse 86 Pulse Source Pulse Oximeter Pulse Oximetry (%) 98 Oxygen Delivery Method Room Air Intake Visit Reasons: Back pain Intake Note: Pt is here today c/o back pain due to a herniated disl Allergies No Known Allergies [No Known Allergies*] Allergy (Verified 12/02/23 13:35) Medication List - Last Reconciled 12/02/23 by Karen Abdi MD albuterol sulfate 90 mcg/actuation 2 puffs inhalation Q6H PRN cyclobenzaprine 10 mg PO TID PRN hydrocodone-acetaminophen 5-325 mg 1 tab PO Q4-6H PRN ibuprofen 600 mg PO Q8H PRN nabumetone 500 mg PO BID PRN omeprazole 20 mg PO DAILY sennosides (Senna Laxative) 8.6 mg PO BEDTIME triamcinolone acetonide 0.1% 1 appl topical DAILY 10 days Tobacco use date assessed: 10/27/23 Dental Screening Dental Screen Date: 10/27/23 Did you have a dental visit in the last 12 months?: No Was dental information given to patient?: No HPI Back pain HPI Details 38-year-old male here today complaining of worsening pain across his lower back, occasionally radiating down left lower leg, worse with bending, standing for extended periods of time or going up and down stairs. He has been taking ibuprofen which has not afforded much improvement. Denies any accompanying numbness, no weakness, no urinary or stool incontinence reported. He had an MRI of the lumbar spine done a year ago which showed posterior disc protrusion/extrusion at L5-S1 with mpingement on the traversing S1 nerve roots bilaterally, more extensive on the left. There are also bilateral foraminal disc protrusions impinging on the exiting L5 nerve roots. There is no central stenosis. [facility] Medical History History of abdominal abscess Irritable bowel syndrome with constipation Erectile dysfunction Lumbar disc herniation with radiculopathy Inattention Difficulty concentrating Recurrent mild major depressive disorder with anxiety Lumbago Irritable bowel syndrome with constipation and diarrhea Mild intermittent asthma Surgical History History of surgery No pertinent past surgical history Family History Father Depression Mental health disorder Mother Breast cancer Polycystic kidney disease Maternal Grandmother Stomach cancer Maternal Grandfather Bone cancer Brother No problems noted. Brother No problems noted. Brother No problems noted. Paternal Uncle Substance use disorder Paternal Aunt Substance use disorder Social History Housing: Apartment Alcohol intake: never Comment: COUNTS CORRECT Patient Tobacco Use Status: Never used Tobacco e-Cigarette/Vaping Use: Never Used Use of substances other than those prescribed or required for medical reasons: No Are you DNR?: No Advance Directives: No Advance Directives Information Provided: Yes service: No Current occupational status: employed Cognitive needs: No Hearing needs: No Vision needs: Yes Questionnaire PHQ-9 Over the last 2 weeks, how often have you been bothered by any of the following problems? 1. Little interest or pleasure in doing things: not at all 2. Feeling down, depressed, or hopeless: not at all 3. Trouble falling or staying asleep, or sleeping too much: not at all 4. Feeling tired or having little energy: not at all 5. Poor appetite or overeating: not at all 6. Feeling bad about yourself - or that you are a failure or have let yourself or your family down: not at all 7. Trouble concentrating on things, such as reading the newspaper or watching television: not at all 8. Moving or speaking so slowly that other people could have noticed. Or the opposite - being so fidgety or restless that you have been moving around a lot more than usual: not at all 9. Thoughts that you would be better off or of hurting yourself in some way: not at all Total score: 0 Depression Screening Interpretation: Negative Depression Screening Done: Yes 48453 - PHQ-9 Billing: Yes Source: Developed by Drs. Jeremie Medina, Jeannine Mc, Raiv Rock and colleagues, with an educational gal from [employer]. Thrive Questionnaire Date Thrive assessed: 10/27/23 I am a: Patient What is your living situation today?: I have a steady place to live Within the past 12 months, did the food you bought not last and you didn't have the money to get more?: Never true Within the past 12 months, did you worry whether your food would run out before you got money to buy more?: Never true Do you have trouble paying for medicines?: No Do you have trouble getting transportation to medical appointments?: No Do you have trouble paying your heating and electricity bill?: No Do you have trouble taking care of your child, family member or friend?: No Do you have trouble with day-to-day activities such as bathing, preparing meals, shopping, managing finances, etc.?: No Are you currently unemployed and looking for a job?: No Are you interested in more education?: No THRIVE Score: 0 AUDIT C Alcohol Use Questionnaire (AUDIT-C) 1. How often do you have a drink containing alcohol?: Never Total Score: 0 KINGSLEY-7 AMB Questionnaire KINGSLEY-7 Date KINGSLEY - 7 assessed: 10/27/23 Feeling nervous, anxious, or on edge: 0 = Not at all Not being able to stop or control worryin = Not at all Worrying too much about different things: 0 = Not at all Trouble relaxin = Not at all Being so restless that it is hard to sit still: 0 = Not at all Becoming easily annoyed or irritable: 0 = Not at all Feeling afraid as if something awful might happen: 0 = Not at all Total KINGSLEY-7 score (0-4 normal; 5-9 mild; 10-14 moderate; 15-21 severe): 0 Source: Developed by Drs. Jeremie Medina, Jeannine Mc, Ravi Rock and colleagues, with an educational gal from [employer]. KINGSLEY-7 Assessment Billing KINGSLEY-7 Assessment Tool: KINGSLEY-7 Assessment 34537 Review of Systems Const Reports as per HPI and Reports no additional complaints ENT Reports Normal hearing present Neuro Reports Normal hearing present and Denies Abnormal speech present Physical exam (Primary Care) Vital Signs: Last Vital Signs Pulse 86 10/27/23 12:12 BP 110/78 10/27/23 12:12 Pulse Ox 98 10/27/23 12:12 Oxygen Delivery Method Room Air 10/27/23 12:12 BMI result Body Mass Index 25.5 Tobacco/Smoking Status: Tobacco use Status Tobacco use date assessed 10/27/23 10/27/23 12:14 Patient Tobacco Use Status Never used Tobacco 10/27/23 12:14 e-Cigarette/Vaping Use Never Used 10/27/23 12:14 PHQ-9: PHQ-9 Score PHQ-9: Total score 0 10/27/23 13:11 Depression Screening Interpretation: Negative Thrive Assessment: Date of Thrive Assessment Date Thrive assessed 10/27/23 10/27/23 12:16 Const General: no acute distress and alert Nutritional Appearance: average body habitus Orientation/consciousness: patient oriented x3 Neck Neck: Yes full ROM, Yes no lymphadenopathy and Yes supple Resp Auscultation: clear to auscultation bilaterally Cardio Rate: regular rate Rhythm: regular rhythm Heart sounds: S1 normal heart sound present and S2 normal heart sound present Back/Spine/Pelvis Thoracic/Lumbar Spine: straight leg raise negative bilaterally and paraspinal muscle tenderness bilaterally in the lower lumbar Skin General skin exam: no rashes or lesions noted Neuro General: patient oriented x3, gait normal, tone normal, Normal light touch and pain sensation, no focal motor deficits and CN's II-XI intact bilaterally Cranial nerves: Yes Normal hearing present Cognition (Neuro): normal cognition Speech: No Abnormal speech present Gait exam (Neuro): Normal gait present Motor exam (neuro): 5/5 motor strength present throughout Sensory Exam: double simultaneous stimulation for sensation normal Deep tendon reflexes (DTR's): Right patellar reflex intensity grade: 1+, Left patellar reflex intensity grade: 1+, Right ankle reflex intensity grade: 1+ and Left ankle reflex intensity grade: 1+ Extrem General: Yes full ROM, Yes no joint enlargement, Yes no clubbing, cyanosis or edema, Yes no calf tenderness and Yes normal gait Assessment and Plan Assessment & Plan (1) Lumbar disc herniation with radiculopathy: Code(s): M51.16 - Intervertebral disc disorders with radiculopathy, lumbar region Plan: Discontinue ibuprofen, prescription sent for nabumetone 500 mg to take 1 tablet twice a day as needed for pain, always take it with food. Return to clinic if after 1 or 2 weeks no improvement of symptoms Medications: New nabumetone 500 mg PO BID PRN 60 tabs 0RF back pain M51.16 - Intervertebral disc disorders with radiculopathy, lumbar region triamcinolone acetonide 0.1% 1 appl topical DAILY 15 grams 0RF 10 days Coding Level of Care Code Est Pt Level 3 (77721) Diagnoses Lumbar disc herniation with radiculopathy M51.16 Additional Codes KINGSLEY-7 Assessment Billing - KINGSLEY-7 Assessment Tool: KINGSLEY-7 Assessment [id number] ([id number])
== END 2023-10-27 13:12 | disposition home or self-care (01) ==
PROVIDERS: PCP Internal Medicine; Visit Provider Internal Medicine
DX: M51.16 Intervertebral disc disorders with radiculopathy, lumbar region (principal)
CPT/HCPCS: 99213

== ENCOUNTER 2023-11-05 14:54 | Outpatient (AMB) | payer OTHER, SELFPAY ==
[2023-11-05 15:01] VITALS: BP 134/87; PULSE 82; BMI 26.6
--- NOTE | 2023-11-05 15:01 | MHC.OFFVIS ---
Intake Vital Signs 11/05/23 15:01 Height 5 ft 10 in Weight 185 lb 3.013 oz BMI 26.6 BP 134/87 Blood Pressure Location Lt brachial Position Sitting Pulse 82 Intake Visit Reasons: follow up CT scan Intake Note: Patient presents to in office visit today in follow up of CT. CC: Patient reports that when he is on his feet all day and when he goes home and lays down he feels abd pain with like a shooting pain from is spine to his anus. Audit Officer Required: No Accompanied by: Self / Same As Patient Allergies No Known Allergies [No Known Allergies*] Allergy (Verified 11/30/23 08:14) HPI follow up CT scan HPI Details ssessment & Plan (1) LLQ abdominal pain: Code(s): R10.32 - Left lower quadrant pain (2) Elevated bilirubin: Code(s): R17 - Unspecified jaundice (3) Left groin pain: Code(s): R10.32 - Left lower quadrant pain (4) Abnormal US (ultrasound) of abdomen: Comment: ? CBD enlarged GB polyp Code(s): R93.5 - Abnormal findings on diagnostic imaging of other abdominal regions, including retroperitoneum (5) Irritable bowel syndrome with constipation and diarrhea: Code(s): K58.2 - Mixed irritable bowel syndrome (6) PHILLIPS (nonalcoholic steatohepatitis): Comment: BASELINE LABS 09/29/22 Ferritin 130 GGT 86 H C-Reactive Protein 0.26 Amylase 43 Lipase 20 Alpha Fetoprotein 4.3 TSH 2.39 MYNOR Screen POSITIVE A MYNOR Titer 1:40 H Anti-Mitochondrial Ab NEGATIVE Anti-Smooth Muscle Ab <20 Tiss Transglutamin IgG <1.0 Tiss Transglutamin IgA <1.0 Hepatitis A IgM Ab Nonreactive Hep Bs Antigen Negative Hep Bs Antibody REACTIVE Hep B Core Total Ab Nonreactive Hepatitis C Ab (EIA) Nonreactive HIV 1&2 Ab/P24 Ag 4thGn Nonreactive 07/11/22 07/11/22 10:14 10:14 WBC 4.8 Hgb 15.7 Hct 45.8 Estimated GFR > 60 Total Bilirubin 0.8 AST 33 ALT 61 H Alkaline Phosphata se 67 CURRENT LABS 08/05/23 10:58 Total Bilirubin 1.1 H Direct Bilirubin 0.4 AST 32 ALT 53 H Alkaline Phosphatase 57 ULTRASOUND OF THE ABDOMEN 08/11/23 FINDINGS: PANCREAS: Normal. ABDOMINAL AORTA: The proximal, mid, and distal segments are normal in caliber. INFERIOR VENA CAVA: Visualized portions are normal. LIVER: Increased hepatic parenchymal heterogeneity and echogenicity which could be associated with hepatic steatosis or hepatocellular disease and substantially limits visualization. GALLBLADDER: No gallstones. Borderline gallbladder wall thickening of 0.33 cm. COMMON BILE DUCT: Abnormal in caliber measuring 0.62 cm in diameter. RIGHT KIDNEY: No hydronephrosis. No renal calculi. Limited visualization. The kidney measures 10.7 cm in maximum dimension. LEFT KIDNEY: No hydronephrosis. No renal calculi. Limited visualization. The kidney measures 11.3 cm in maximum dimension. SPLEEN: Normal. The spleen measures 12.5 cm in maximum dimension. FREE FLUID: None. US/US abdomen complete IMPRESSION: 1. Common bile duct is abnormal in caliber measuring 0.6 cm. No gallstones identified. Borderline gallbladder wall thickening of 0.33 cm. 2. Increased hepatic parenchymal heterogeneity and echogenicity which could be associated with hepatic steatosis or hepatocellular disease and substantially limits visualization. 3. Spleen upper limits of normal in size, 12.5 cm. 4. Correlation with clinical exam recommended to determine further management. MR/MRCP could be considered for further evaluation. Code(s): K75.81 - Nonalcoholic steatohepatitis (PHILLIPS) (7) GERD (gastroesophageal reflux disease): Code(s): K21.9 - Gastro-esophageal reflux disease without esophagitis (8) Left inguinal hernia: Code(s): K40.90 - Unilateral inguinal hernia, without obstruction or gangrene, not specified as recurrent Plan He has not been taking his omeprazole or his senna because he ran out of money for the copays. However he a chance to take 1 senna night for a while he ran and he found that this still was not completely emptying his bowels. As response someone bought him a fiber capsule and he has been taking this 3 times a day and he has seen some improvement in terms of the stool color and consistency. He is going to try increasing this to 4 times a day because he really likes this therapy. He can continue to experiment with this and the senna if he needs. The problem with the senna was if he took 2 he was having diarrhea as well as constipation. We review the ultrasound of the pelvis and he does have a left inguinal hernia that likely is contributing to the pain experienced when coughing. I tell him this of course would require surgery to correct which also will cost him money and right now it is very small hernia so he certainly can wait. He will let me know or he can let his primary know if he requests a referral to surgery to discuss repair. We get the CT scan scheduled today for October 22. This of course is to explore his possible hyperbilirubinemia and elevated common bile duct. It also be a 2nd look at the left lower quadrant to assess his hernia. Return office visit about a week after the CT scan so we can be sure to have the radiology read. Medications: New omeprazole 20 mg PO DAILY [address] of the abdomen with and without IV contrast 10/25/23 FINDINGS: LUNG BASES: The visualized lung bases are unremarkable. LIVER, GALLBLADDER, AND BILIARY TREE: The liver is normal in size and contour. Tiny hepatic hypodensity too small to characterize. The common duct measures 6 mm at the lola hepatis. No intrahepatic biliary ductal dilatation.. The gallbladder is unremarkable with no evidence of radiopaque gallstones, gallbladder wall thickening, or obvious pericholecystic inflammatory changes. PANCREAS: No ductal dilatation. SPLEEN: Not enlarged. ADRENAL GLANDS: No adrenal mass. KIDNEYS AND URETERS: The kidneys are normal in size, shape, and attenuation. No renal or ureteral calculus. No hydronephrosis or perinephric stranding. BLADDER: Circumferential wall thickening. GASTROINTESTINAL TRACT: Small and large bowel loops are of normal caliber. No small bowel obstruction. Marked stool throughout the colon. ABDOMINAL WALL: Small fat-containing left inguinal hernia. LYMPH NODES: No bulky lymphadenopathy. VASCULAR: Normal caliber abdominal aorta. PELVIC VISCERA: Heterogeneous appearance of the prostate gland with hypoattenuating foci. OSSEOUS STRUCTURES: No destructive bone lesions. CT/CT abdomen pelvis wo/w IV con IMPRESSION: Heterogeneous appearance of the prostate gland with hypoattenuating foci. Circumferential bladder wall thickening. Advise clinical correlation for infection. Mild dilatation of the common duct at the lola hepatis without intrahepatic biliary ductal dilatation or dilatation of the main pancreatic duct. The appearance is unchanged relative to the 08/13/2018 examination. TODAY'S VISIT. I refer him to general surgery for the inguinal hernia. This is the most likely cause of the LLQ pain. We review the CT and it seems that there is no GB polyp or thickening, and the bile duct dilation has been unchanged since 2018, so we will watch but this is likely a normal variant. His elevated bilirubin is likely Gilbert's syndrome syndrome, given the he has a negative smooth muscle antibody and mitochondrial antibody. Continues on omeprazole daily for GERD ROV 6 mos. [facility] Medical History Irritable bowel syndrome with constipation Irritable bowel syndrome with constipation and diarrhea Erectile dysfunction Lumbar disc herniation with radiculopathy Inattention Difficulty concentrating Recurrent mild major depressive disorder with anxiety Lumbago Mild intermittent asthma Surgical History No pertinent past surgical history Family History Father Depression Mental health disorder Mother Breast cancer Polycystic kidney disease Maternal Grandmother Stomach cancer Maternal Grandfather Bone cancer Brother No problems noted. Brother No problems noted. Brother No problems noted. Paternal Uncle Substance use disorder Paternal Aunt Substance use disorder Social History Housing: Apartment Alcohol intake: never Patient Tobacco Use Status: Never used Tobacco e-Cigarette/Vaping Use: Never Used service: No Current occupational status: employed Cognitive needs: No Hearing needs: No Vision needs: Yes Review of Systems Const Denies fatigue, Denies fever(s), Denies night sweats, Denies poor appetite and Denies weight loss Eyes Details: glasses Reports requires corrective lenses ENT Reports Normal hearing present, Denies dental pain, Denies dysphagia, Denies hearing loss, Denies mouth pain, Denies odynophagia, Denies throat swelling, Denies tongue swelling and Reports other (Dentition adequate) Card Reports no additional complaints Resp Reports no additional complaints GI Details: Reports abdominal pain, Denies melena, Denies bloating, Denies hematochezia, Denies constipation, Denies GI cramping, Denies dysphagia, Denies excessive flatus, Denies early satiety, Reports heartburn, Denies diarrhea, Denies nausea, Denies odynophagia, Denies vomiting and Denies hematemesis Skin/Breast Denies pruritus, Denies lesions, Denies rash and Denies jaundice Neuro Reports Normal hearing present and Denies Abnormal speech present Endo Denies fatigue Aller/Immun Denies throat swelling and Denies tongue swelling Physical Exam Vital Signs: Last Vital Signs Pulse 82 11/05/23 15:01 BP 134/87 11/05/23 15:01 BMI result Body Mass Index 26.6 Const General: cooperative, no acute distress, well developed and well groomed Nutritional Appearance: average body habitus and well nourished Orientation/consciousness: oriented to person, oriented to place and oriented to time Limitations: No language barrier HEENT Head: Yes normocephalic and Yes atraumatic Eyes General: appearance normal, both eyes and all related structures Pupils: Equal, round and reactive pupils present Neck Neck: Yes normal visual inspection and Yes no lymphadenopathy Thyroid: Thyroid normal Resp Effort & Inspection: normal respiratory effort and able to speak in complete sentences Auscultation: clear to auscultation bilaterally Cardio Rate: regular rate Rhythm: regular rhythm Heart sounds: Normal, physiologic split S2 sound present Peripheral pulses: radial pulses present and posterior tibial pulses present GI Inspection: No distended and No Abdominal panniculus present Palpation (GI): Soft to palpation, nontender, no guarding, not rigid and No hepatosplenomegaly present Percussion: Yes normal to percussion Auscultation: normal bowel sounds Rectal Exam - Male: Yes deferred Skin General skin exam: no rashes or lesions noted, turgor normal, skin not dry, no jaundice, No spider nevi and no striae Rashes: no rashes Nails: normal Neuro General: oriented to person, oriented to place and oriented to time Cranial nerves: Yes Equal, round and reactive pupils present and Yes Normal hearing present Speech: No Abnormal speech present Extrem General: Yes normal to inspection, No clubbing, No cyanosis and No edema Psych Appearance: grossly normal and well kempt Mental Status: mental status grossly normal Speech and movement: Normal speech and movement present Affect: normal affect Attitude: cooperative Thought process: Normal thought process present and not confabulating Thought content: Normal thought content present Insight: Fair insight present (Psych) Judgement: Fair judgement present (Psych) Results Reviewed Results Reviewed: CT of the abdomen with and without IV contrast 10/25/23 FINDINGS: LUNG BASES: The visualized lung bases are unremarkable. LIVER, GALLBLADDER, AND BILIARY TREE: The liver is normal in size and contour. Tiny hepatic hypodensity too small to characterize. The common duct measures 6 mm at the lola hepatis. No intrahepatic biliary ductal dilatation.. The gallbladder is unremarkable with no evidence of radiopaque gallstones, gallbladder wall thickening, or obvious pericholecystic inflammatory changes. PANCREAS: No ductal dilatation. SPLEEN: Not enlarged. ADRENAL GLANDS: No adrenal mass. KIDNEYS AND URETERS: The kidneys are normal in size, shape, and attenuation. No renal or ureteral calculus. No hydronephrosis or perinephric stranding. BLADDER: Circumferential wall thickening. GASTROINTESTINAL TRACT: Small and large bowel loops are of normal caliber. No small bowel obstruction. Marked stool throughout the colon. ABDOMINAL WALL: Small fat-containing left inguinal hernia. LYMPH NODES: No bulky lymphadenopathy. VASCULAR: Normal caliber abdominal aorta. PELVIC VISCERA: Heterogeneous appearance of the prostate gland with hypoattenuating foci. OSSEOUS STRUCTURES: No destructive bone lesions. CT/CT abdomen pelvis wo/w IV con IMPRESSION: Heterogeneous appearance of the prostate gland with hypoattenuating foci. Circumferential bladder wall thickening. Advise clinical correlation for infection. Mild dilatation of the common duct at the lola hepatis without intrahepatic biliary ductal dilatation or dilatation of the main pancreatic duct. The appearance is unchanged relative to the 08/13/2018 examination. Assessment & Plan Assessment & Plan (1) Elevated bilirubin: Code(s): R17 - Unspecified jaundice (2) Left inguinal hernia: Code(s): K40.90 - Unilateral inguinal hernia, without obstruction or gangrene, not specified as recurrent (3) LLQ abdominal pain: Code(s): R10.32 - Left lower quadrant pain (4) Irritable bowel syndrome with constipation and diarrhea: Code(s): K58.2 - Mixed irritable bowel syndrome (5) GERD (gastroesophageal reflux disease): Code(s): K21.9 - Gastro-esophageal reflux disease without esophagitis (6) PHILLIPS (nonalcoholic steatohepatitis): Comment: BASELINE LABS 09/29/22 Ferritin 130 GGT 86 H C-Reactive Protein 0.26 Amylase 43 Lipase 20 Alpha Fetoprotein 4.3 TSH 2.39 MYNOR Screen POSITIVE A MYNOR Titer 1:40 H Anti-Mitochondrial Ab NEGATIVE Anti-Smooth Muscle Ab <20 Tiss Transglutamin IgG <1.0 Tiss Transglutamin IgA <1.0 Hepatitis A IgM Ab Nonreactive Hep Bs Antigen Negative Hep Bs Antibody REACTIVE Hep B Core Total Ab Nonreactive Hepatitis C Ab (EIA) Nonreactive HIV 1&2 Ab/P24 Ag 4thGn Nonreactive 07/11/22 07/11/22 10:14 10:14 WBC 4.8 Hgb 15.7 Hct 45.8 Estimated GFR > 60 Total Bilirubin 0.8 AST 33 ALT 61 H Alkaline Phosphata se 67 CURRENT LABS 08/05/23 10:58 Total Bilirubin 1.1 H Direct Bilirubin 0.4 AST 32 ALT 53 H Alkaline Phosphatase 57 ULTRASOUND OF THE ABDOMEN 08/11/23 FINDINGS: PANCREAS: Normal. ABDOMINAL AORTA: The proximal, mid, and distal segments are normal in caliber. INFERIOR VENA CAVA: Visualized portions are normal. LIVER: Increased hepatic parenchymal heterogeneity and echogenicity which could be associated with hepatic steatosis or hepatocellular disease and substantially limits visualization. GALLBLADDER: No gallstones. Borderline gallbladder wall thickening of 0.33 cm. COMMON BILE DUCT: Abnormal in caliber measuring 0.62 cm in diameter. RIGHT KIDNEY: No hydronephrosis. No renal calculi. Limited visualization. The kidney measures 10.7 cm in maximum dimension. LEFT KIDNEY: No hydronephrosis. No renal calculi. Limited visualization. The kidney measures 11.3 cm in maximum dimension. SPLEEN: Normal. The spleen measures 12.5 cm in maximum dimension. FREE FLUID: None. US/US abdomen complete IMPRESSION: 1. Common bile duct is abnormal in caliber measuring 0.6 cm. No gallstones identified. Borderline gallbladder wall thickening of 0.33 cm. 2. Increased hepatic parenchymal heterogeneity and echogenicity which could be associated with hepatic steatosis or hepatocellular disease and substantially limits visualization. 3. Spleen upper limits of normal in size, 12.5 cm. 4. Correlation with clinical exam recommended to determine further management. MR/MRCP could be considered for further evaluation. Code(s): K75.81 - Nonalcoholic steatohepatitis (PHILLIPS) Plan I refer him to general surgery for the inguinal hernia. This is the most likely cause of the LLQ pain. We review the CT and it seems that there is no GB polyp or thickening, and the bile duct dilation has been unchanged since 2018, so we will watch but this is likely a normal variant. His elevated bilirubin is likely Gilbert's syndrome syndrome, given the he has a negative smooth muscle antibody and mitochondrial antibody. Continues on omeprazole daily for GERD ROV 6 mos. Orders: Referrals General Surgery Referral K40.90 - Unilateral inguinal hernia, without obstruction or gangrene, not specified as recurrent, R10.32 - Left lower quadrant pain Coding Level of Care Code Est Pt Level 3 (98532) Diagnoses Elevated bilirubin R17 Left inguinal hernia K40.90 LLQ abdominal pain R10.32 Irritable bowel syndrome with constipation and diarrhea K58.2 GERD (gastroesophageal reflux disease) K21.9 PHILLIPS (nonalcoholic steatohepatitis) K75.81
== END 2023-11-05 15:43 | disposition home or self-care (01) ==
PROVIDERS: PCP Internal Medicine; Referring Provider Internal Medicine; Visit Provider Nurse Practitioner
DX: R17 Unspecified jaundice (principal); K40.90 Unilateral inguinal hernia, without obstruction or gangrene, not specified as recurrent; R10.32 Left lower quadrant pain; K58.2 Mixed irritable bowel syndrome; K21.9 Gastro-esophageal reflux disease without esophagitis; K75.81 Nonalcoholic steatohepatitis (NASH)
CPT/HCPCS: 99213

== ENCOUNTER → 2023-11-05 14:54 | Outpatient (BNVA) | payer OTHER, SELFPAY | PROVIDERS: PCP Internal Medicine; Visit Provider Nurse Practitioner | DX: K40.90 Unilateral inguinal hernia, without obstruction or gangrene, not specified as recurrent (principal); K58.2 Mixed irritable bowel syndrome; K21.9 Gastro-esophageal reflux disease without esophagitis; K75.81 Nonalcoholic steatohepatitis (NASH); R17 Unspecified jaundice; R10.32 Left lower quadrant pain | CPT/HCPCS: 99212 ==

== ENCOUNTER 2023-11-22 15:19 | Outpatient (AMB) | payer OTHER, SELFPAY ==
--- NOTE | 2023-11-22 15:25 | A.OFFVIS_ITS ---
Intake Vital Signs 11/22/23 15:28 Height 5 ft 10 in Weight 181 lb BMI 26.0 BP 128/82 Blood Pressure Location Rt brachial Position Sitting Pulse 78 Intake Visit Reasons: hernia Intake Note: Patient referred by Livia Callahan for [facility]. Present for a few months. Pain started on back. Pelvic US: 09-27-23. Patient c/o: Pain X4-5m. 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 He does significant heavy lifting at his place of employment. He is otherwise tolerating a diet. He is having regular bowel habits. He said he had an ultrasound which confirmed the diagnosis. Patient otherwise tolerates a diet, has regular bowel habits. He has no other GI issues or complaints. Chart was reviewed and patient evaluated [facility] Medical History Irritable bowel syndrome with constipation Irritable bowel syndrome with constipation and diarrhea Erectile dysfunction Lumbar disc herniation with radiculopathy Inattention Difficulty concentrating Recurrent mild major depressive disorder with anxiety Lumbago Mild intermittent asthma Surgical History No pertinent past surgical history Family History Father Depression Mental health disorder Mother Breast cancer Polycystic kidney disease Maternal Grandmother Stomach cancer Maternal Grandfather Bone cancer Brother No problems noted. Brother No problems noted. Brother No problems noted. Paternal Uncle Substance use disorder Paternal Aunt Substance use disorder Social History Housing: Apartment Alcohol intake: never Patient Tobacco Use Status: Never used Tobacco e-Cigarette/Vaping Use: Never Used service: No Current occupational status: employed Cognitive needs: No Hearing needs: No Vision needs: Yes Physical Exam Vital Signs: Last Vital Signs Pulse 78 11/22/23 15:28 BP 128/82 11/22/23 15:28 BMI result Body Mass Index 26.0 Chest Other: Chest breath sounds bilaterally, HS 1 in 2 GI Other: Patient was examined both supine and standing with Valsalva. Right groin negative. Genitalia within normal limits. Very large reducible left inguinal hernia. Assessment & Plan Assessment & Plan (1) Left inguinal hernia: Code(s): K40.90 - Unilateral inguinal hernia, without obstruction or gangrene, not specified as recurrent Plan Risks, benefits, alternatives of open left inguinal hernia repair with mesh were reviewed with the patient and included but not limited to bleeding, infection, recurrence, numbness, pain, scarring and the patient wished to proceed. All questions answered. Arrangements were made for this. Coding Level of Care Code New Pt Level 5 (38506) Diagnoses Left inguinal hernia K40.90
[2023-11-22 15:28] VITALS: BP 128/82; PULSE 78; BMI 26.0
== END 2023-11-22 15:48 | disposition home or self-care (01) ==
PROVIDERS: PCP Internal Medicine; Referring Provider Nurse Practitioner; Visit Provider Surgery
DX: K40.90 Unilateral inguinal hernia, without obstruction or gangrene, not specified as recurrent (principal)
CPT/HCPCS: 99204

== ENCOUNTER → 2023-11-22 15:19 | Outpatient (BNVA) | payer OTHER, SELFPAY | PROVIDERS: PCP Internal Medicine; Referring Provider Nurse Practitioner; Visit Provider Surgery | DX: K40.90 Unilateral inguinal hernia, without obstruction or gangrene, not specified as recurrent (principal) | CPT/HCPCS: 99202 ==

== ENCOUNTER 2023-11-30 08:02 | Emergency (ER) | payer OTHER, SELFPAY ==
[2023-11-30 08:14] VITALS: BP 126/86; PULSE 72; RESP 16; TEMP 36.6; O2SAT 98; BMI 25.2
--- NOTE | 2023-11-30 08:45 | ED_ITS ---
HPI - General Adult General Chief complaint: Abdominal Pain Stated complaint: Hernia Time Seen by Provider: 11/30/23 08:45 Source: patient Mode of arrival: ambulatory Limitations: no limitations History of Present Illness HPI narrative: Patient is a 38 year old, assigned male at , presenting to the ED with left sided suprapubic abdominal pain. Patient reports that he was diagnosed with an inguinal hernia about 2 months ago and has surgery scheduled for a repair on 12/17/2023. Patient reports that the pain and discomfort is getting worse and interfering with daily activities. He describes the pain as intermittent, and aching that sometimes radiates to his groin. Endorses the pain as worse when standing and especially when lifting at work. Patient reports that he is able to push the hernia back in. Denies fevers/chills, headaches, lightheadedness, dizziness, vision changes, SOB, and chest pain. Reports his last bowel movement as being yesterday. MD complaint: Abdominal pain Onset (ago): week(s) (1) Location: abdomen (L sided suprapubic) Radiation: other (groin) Severity: mild Severity scale (1-10): 2 Quality: aching Pain Consistency: intermittent Relieving factors: none Exacerbating factors: movement and other (standing, lifting, and bending forward) Associated symptoms: denies other symptoms Treatments prior to arrival: NSAID Related Data Home Medications Medication Instructions Recorded Confirmed sennosides 8.6 mg tablet (Senna 8.6 mg PO BEDTIME 08/31/23 08/31/23 Laxative) cyclobenzaprine 10 mg tablet 10 mg PO TID PRN 10/06/23 Previous Rx's Medication Instructions Recorded albuterol sulfate 90 mcg/actuation 2 puff inhalation Q6H PRN 08/07/23 aerosol inhaler shortness of breath or wheezing #8.5 grams omeprazole 20 mg capsule,delayed 20 mg PO DAILY #30 caps 10/06/23 release nabumetone 500 mg tablet 500 mg PO BID PRN back pain #60 10/27/23 tabs triamcinolone acetonide 0.1 % 1 appl topical DAILY 10 days #15 10/27/23 topical cream grams ibuprofen 600 mg tablet 600 mg PO Q8H PRN pain #30 tabs 11/30/23 Allergies Allergy/AdvReac Type Severity Reaction Status Date / Time No Known Allergies Allergy Verified 11/30/23 08:14 [No Known Allergies*] Review of Systems Constitutional: Constitutional: Reports no additional constitutional complaints, Denies chills, Denies fever(s) and Denies night sweats Eyes: Eyes: Reports no additional eye complaints, Denies blurry vision, Denies change in vision, Denies diplopia, Denies eye discharge, Denies loss of vision and Denies eye pain ENT: Denies dizziness Cardiovascular: Cardiovascular: Reports no additional cardiovascular complaints, Denies chest pain, Denies lightheadedness, Denies Loss of Consciousness and Denies dyspnea Respiratory: Respiratory: Reports no additional respiratory complaints and Denies dyspnea Gastrointestinal: Gastrointestinal: Reports no additional gastrointestinal complaints, Reports abdominal pain, Denies melena, Denies hematochezia, Denies change in bowel habits and Denies change in stool character Genitourinary: Genitourinary: Reports no additional male genitourinary complaints, Denies hematuria, Denies oliguria, Denies difficulty urinating, Denies dysuria, Denies urinary frequency, Denies urinary hesitancy, Denies urinary incontinence and Denies urinary urgency Musculoskeletal: Musculoskeletal: Reports no additional musculoskeletal complaints, Denies numbness and Denies tingling Neurologic: Denies dizziness, Denies loss of vision, Denies numbness and Denies tingling Psychiatric: Psychiatric: Reports no additional psychiatric complaints Endocrine: Endocrine: Reports no additional endocrine complaints Hematologic/Lymphatic: Hematologic/Lymphatic: Reports no additional hematologic/lymphatic complaints Allergic/Immunologic: Allergic/Immunologic: Reports no additional allergic/immunologic complaints [facility] Past Medical History Attestation statement: The following information was validated with the patient. Source: old records reviewed and nursing notes reviewed Medical History Irritable bowel syndrome with constipation Irritable bowel syndrome with constipation and diarrhea Erectile dysfunction Lumbar disc herniation with radiculopathy Inattention Difficulty concentrating Recurrent mild major depressive disorder with anxiety Lumbago Mild intermittent asthma Surgical History No pertinent past surgical history Family History Family History Father Depression Mental health disorder Mother Breast cancer Polycystic kidney disease Maternal Grandmother Stomach cancer Maternal Grandfather Bone cancer Brother No problems noted. Brother No problems noted. Brother No problems noted. Paternal Uncle Substance use disorder Paternal Aunt Substance use disorder Social History Social History Housing: Apartment Alcohol intake: never Patient Tobacco Use Status: Never used Tobacco Smoked in Last 30 Days: No e-Cigarette/Vaping Use: Never Used Use of substances other than those prescribed or required for medical reasons: No Advance Directives: No Advance Directives Information Provided: Yes service: No Current occupational status: employed Cognitive needs: No Hearing needs: No Vision needs: Yes Physical Exam ED Vital Signs: Vital Signs - 24 hr 11/30/23 08:14 Temperature 97.8 F Pulse Rate 72 Respiratory Rate 16 Blood Pressure 126/86 Pulse Oximetry 98 Oxygen Delivery Method Room Air BMI result Body Mass Index 25.2 Const General: cooperative, no acute distress, alert and awake Nutritional Appearance: average body habitus Orientation/consciousness: patient oriented x3 Limitations: no limitations HENMT Head: Yes normal to inspection Ears: hearing grossly normal bilaterally General nose exam: Normal external nose present Face and sinus: Yes normal facial exam Mouth: Normal oral and palatal mucosa present, no drooling and no muffled voice Eyes General: appearance normal, both eyes and all related structures Periorbital: periorbital findings normal Eyelids: Yes eyelids normal Conjunctivae: conjunctivae normal Pupils: Equal, round and reactive pupils present EOM: EOMs intact bilaterally Neck Neck: Yes normal visual inspection, Yes full ROM and Yes no lymphadenopathy Chest Chest palpation & inspection: normal inspection of the chest Resp Effort & Inspection: normal respiratory effort and able to speak in complete sentences Auscultation: clear to auscultation bilaterally Cardio Jugular venous distension: no JVD Palpation: normal PMI Rate: regular rate Rhythm: regular rhythm GI Other: reducible left inguinal hernia Inspection: Yes normal to inspection Palpation (GI): Soft to palpation and Tenderness to palpation present (GI) in the LLQ Auscultation: normal bowel sounds Neuro General: patient oriented x3 Cranial nerves: Yes Equal, round and reactive pupils present Cognition (Neuro): normal cognition Motor exam (neuro): 5/5 motor strength present throughout Sensory Exam: Normal double simultaneous stimulation for sensation Coordination: [id number] test normal Extrem General: Yes normal to inspection, Yes full ROM and Yes capillary refill normal Psych Appearance: grossly normal Mental Status: mental status grossly normal Affect: normal affect Attitude: cooperative Thought process: Normal thought process present Thought content: Normal thought content present Insight: Good insight present (Psych) Medical Decision Making Medical Decision Making [facility] Narrative: Patient is a 38 year old assigned male at with a history of a left inguinal hernia presenting to the emergency department today with intermittent left inguinal hernia pain and requesting a sooner surgery. Patient's physical exam showed an easily reducible left inguinal hernia but was otherwise unremarkable. I spoke to Dr. Bess, the patient's general surgeon, who recommended the patient call the office to schedule his surgery sooner and also requested I inform the patient that his insurance has not approved the surgery yet - which is adding to the delay. I explained my physical exam findings to the patient. I answered all questions asked by the patient. I stressed the importance of the patient taking his medication as prescribed. I stressed the importance of the patient following up with his primary care provider and his general surgeon. I stressed the importance of the patient returning to the emergency department immediately if his symptoms were to worsen or if he were to develop any dizziness, shortness of breath, difficulty breathing, chest pain, blurry vision, loss of vision, nausea, vomiting, abdominal pain, fever, chills, back pain, or any other complaints. Patient verbalized agreement and understanding with this treatment plan and discharge. Differential Diagnosis Differential Diagnoses: The differential diagnosis associated with the presentation includes Left inguinal hernia Inguinal hernia pain Abdominal pain Admission/Observation Consideration of admission/observation: Escalation of care including admission/observation considered Patient would have been admitted to the hospital had his clinical presentation warranted hospital admission. Consult Healthcare Provider Management of the patient was discussed with: Hand Assembler [employer] (spoke with Dr. Bess as noted in the MDM Rationale portion of this note.) Tests considered The following testing was considered but not selected: A CBC, CMP, UA, and CT of the abdomen pelvis was considered, however, the patient's current clinical presentation did not warrant this, which I confirmed with Dr. Bess. I discussed this with the patient who verbalized agreement and understanding. Discharge Plan Discharge Clinical Impression: Left inguinal hernia Patient Disposition: Home, Self-Care Instructions: Inguinal Hernia (ED) Additional Instructions: Follow up with your primary care provider and your general surgeon. Your general surgeon recommended calling the office to request an earlier surgical date - please do so. Return to the emergency department immediately if your symptoms worsen or if you develop any dizziness, shortness of breath, difficulty breathing, chest pain, blurry vision, loss of vision, nausea, vomiting, abdominal pain, fever, chills, back pain, or any other complaints. Prescriptions: No Action albuterol sulfate 90 mcg/actuation HFA aerosol inhaler 2 puff inhalation Q6H PRN (Reason: shortness of breath or wheezing) Qty: 8.5 0RF ibuprofen 600 mg tablet 600 mg PO Q8H PRN (Reason: pain) Qty: 30 0RF sennosides [Senna Laxative] 8.6 mg tablet 8.6 mg PO BEDTIME nabumetone 500 mg tablet 500 mg PO BID PRN (Reason: back pain) Qty: 60 0RF triamcinolone acetonide 0.1 % cream 1 appl topical DAILY 10 Days Qty: 15 0RF cyclobenzaprine 10 mg tablet 10 mg PO TID PRN omeprazole 20 mg capsule,delayed release(DR/EC) 20 mg PO DAILY Qty: 30 6RF Referrals: [facility] [Provider Group] (Call to request an earlier surgical date. ) Karen Abdi MD [Primary Care Provider] - Stand Alone Forms: Work/School Release Interventions: ED Discharge Assessment Last Done: 11/30/23 09:19 Discharge Date/Time: 11/30/23 09:19 Print Language: Palauan
--- NOTE | 2023-11-30 09:05 | PC.NURSE ---
patient a&ox3, vss, pt c/o 12/28 pain- pt has known lt inguinal hernia, pt awaiting to be seen by provider, will continue to monitor
== END 2023-11-30 09:19 | disposition home or self-care (01) ==
PROVIDERS: Emergency Provider Emergency Medicine Emergency Medical Services; PCP Internal Medicine
DX: K40.90 Unilateral inguinal hernia, without obstruction or gangrene, not specified as recurrent (principal); R10.30 Lower abdominal pain, unspecified; Z79.899 Other long term (current) drug therapy
CPT/HCPCS: 99283

== ENCOUNTER 2023-12-02 10:19 | Day surgery (SDC) | payer OTHER, SELFPAY ==
--- NOTE | 2023-12-01 11:48 | MHC.SHP ---
Pre-Procedural Eval Section A - 24 Hr Update-Section A only Date of Service: 12/01/23 The patient is an INPATIENT: No Changes since office visit: No Cold of Flu in the past 2 weeks, No New Medical Problems, No Changes in Medication and No Patient answered all questions The patient has been examined within 24 hours of the surgical procedure. The History & Physical has been completed within 30 days and I have reviewed it.: Yes Section B - Complete if H&P > 30 days Chief Complaint: Unilateral inguinal hernia, without obstruction Allergies: Allergies Allergy/AdvReac Type Severity Reaction Status Date / Time No Known Allergies Allergy Verified 11/30/23 08:14 [No Known Allergies*] Plan I have reviewed the history and physical and performed a pertinent physical examination on my patient. No changes have occurred unless specified. Time Spent With Patient Time: Total time managing care of this patient today ____ minutes.
[2023-12-02 10:34] VITALS: BMI 25.3
[2023-12-02 10:44] VITALS: BP 129/80; PULSE 86; RESP 16; TEMP 36.4; O2SAT 98
--- NOTE | 2023-12-02 11:01 | HO.ANESPROP2 ---
HPI - Anesthesia Eval Consult details Narrative: 38 yo M presenting for left IHR PMFSH Active Problems Active Problems: All Active Problems (Updated 12/02/23 @ 10:34 by Sadaf Caban RN) Left inguinal hernia (Acute) LLQ abdominal pain (Acute) Elevated bilirubin (Acute) Left groin pain (Acute) Abnormal US (ultrasound) of abdomen (Acute) Dysuria (Acute) PHILLIPS (nonalcoholic steatohepatitis) (Acute) GERD (gastroesophageal reflux disease) (Acute) Irritable bowel syndrome with constipation and diarrhea (Acute) Erectile dysfunction (Acute) Lumbar disc herniation with radiculopathy (Acute) Recurrent mild major depressive disorder with anxiety (Acute) Mild intermittent asthma (Acute) Past Medical History Medical History (Updated 12/02/23 @ 10:34 by Sadaf Caban RN) History of abdominal abscess Irritable bowel syndrome with constipation Erectile dysfunction Lumbar disc herniation with radiculopathy Inattention Difficulty concentrating Recurrent mild major depressive disorder with anxiety Lumbago Irritable bowel syndrome with constipation and diarrhea Mild intermittent asthma Family History Family History Father Depression Mental health disorder Mother Breast cancer Polycystic kidney disease Maternal Grandmother Stomach cancer Maternal Grandfather Bone cancer Brother No problems noted. Brother No problems noted. Brother No problems noted. Paternal Uncle Substance use disorder Paternal Aunt Substance use disorder Family history of problems with anesthesia: No Surgical History Surgical History (Updated 12/02/23 @ 10:33 by Sadaf Caban RN) History of surgery No pertinent past surgical history History of Problems with Anesthesia: No Social History Social History Housing: Apartment Alcohol intake: never Patient Tobacco Use Status: Never used Tobacco e-Cigarette/Vaping Use: Never Used Use of substances other than those prescribed or required for medical reasons: No Are you DNR?: No Advance Directives: No Advance Directives Information Provided: Yes service: No Current occupational status: employed Cognitive needs: No Hearing needs: No Vision needs: Yes Meds Allergies Allergy/AdvReac Type Severity Reaction Status Date / Time No Known Allergies Allergy Verified 11/30/23 08:14 [No Known Allergies*] Home Medications Medication Instructions Recorded Confirmed Last Taken Type sennosides 8.6 mg tablet (Senna 8.6 mg PO BEDTIME 08/31/23 08/31/23 Unknown History Laxative) cyclobenzaprine 10 mg tablet 10 mg PO TID PRN 10/06/23 Unknown History Exam Exam Date and Time: December 02, 2023 1058 Height,Weight and Vital Signs: Height 5 ft 10 in Weight 80.059 kg Last Vital Signs Temp 97.6 F 12/02/23 10:44 Pulse 86 12/02/23 10:44 Resp 16 12/02/23 10:44 BP 129/80 12/02/23 10:44 Pulse Ox 98 12/02/23 10:44 O2 Del Method Room Air 12/02/23 10:44 Airway Mallampati Class: II TM Dist: >3cm Neck ROM: Full Loose/Missing/Broken Teeth: No Heart: S1S2 Lungs: CTAB Assessment and Plan Assessment Anesthesia Assessment: Anesthesia Plan Discussed and Chart Reviewed Final Anesthetic Review Family History of Problems with Anesthesia: No History of Problems with Anesthesia: No NPO: Yes ASA Class: II Final Preanesthetic Review: No Changes in Pt Med Stat, Meds/Allgs Chart Reviewed, Consent Obtained/Reviewed and Anes Risks/Benef Reviewed Patient Risk: Low Procedure Risk: Low Anesthetic Plan Anesthetic Plan: MAC: and Agree w/ Assess. and Plan Disposition: Standard PACU
[2023-12-02] MEDS: Lactated Ringers 1,000 ML 80 ML IVCONT (11:03)
[2023-12-02 11:55] VITALS: BP 84/45; PULSE 71; RESP 16; TEMP 36.6; O2SAT 98
--- NOTE | 2023-12-02 11:58 | P.OP_ITS ---
Operative Note Operative Note Date of Service: 12/02/23 Narrative: Preoperative diagnosis: [] Symptomatic large left inguinal hernia Postop diagnosis: [] The same Procedure [] open left inguinal herniorrhaphy with Bard mesh Surgeon: [] Shahriar [employer] Instructor: [] Edyta Type of Anesthesia: [] MAC Indication for surgery: [] Very large indirect inguinal hernia. Small direct hernia. Findings: [] Patient brought to the operating room, placed on operative table in supine position, after adequate level of MAC anesthesia was induced, the patient's left groin was prepped and draped in usual sterile fashion. Commencing with an ilioinguinal block as well as infiltration of the incision with 0.5% Marcaine/1% lidocaine, a small para- inguinal incision was made and carried down through skin, subcutaneous tissue, and Laci's fascia. External oblique fibers were opened their direction with care to isolate and preserve the ilioinguinal nerve throughout the procedure. Spermatic cord was identified and retracted from the field. Exploration of the cord demonstrated a large ind irect hernia sac. This was from the spermatic cord and reduced. A Bard plug was placed in the indirect defect and sutured inferiorly to the inguinal ligament and superiorly to the transversalis fascia using interrupted 0 Ethibond suture. At completion of the procedure, mesh also covered the inguinal floor. Wound was irrigated, secured hemostasis, and closed in the following manner; external oblique fascia was closed using running 2-0 Vicryl suture. Laci's fascia was reapproximated using interrupted 3-0 Vicryl sutures. Interrupted inverted deep dermal 3-0 Vicryl sutures followed by running subcuticular 4-0 Vicryl sutures were placed. Steri-Strips and sterile dressings were applied. Wound was infiltrated with 0.5% Marcaine/1% lidocaine at completion as well. EBL minimal. Ipsilateral testicle was intrascrotal at completion. Sponge, needle, and instrument counts reported correct. Patient tolerated procedure well and emerged from anesthesia in stable condition.
[2023-12-02 12:10] VITALS: BP 93/52; PULSE 69; RESP 16; O2SAT 98
[2023-12-02 12:25] VITALS: BP 93/61; PULSE 66; RESP 16; O2SAT 100
[2023-12-02 12:40] VITALS: BP 102/71; PULSE 68; RESP 16; O2SAT 100
[2023-12-02 12:55] VITALS: BP 107/80; PULSE 60; RESP 16; TEMP 36.1; O2SAT 100
--- NOTE | 2023-12-02 13:21 | PC.NURSE ---
upon standing patient left knee buckling and helped to rest in chair, spoke with md. Bess who recommended crutches and knee immobilizer which was provided to patient and training completed.
== END 2023-12-02 14:27 | disposition home or self-care (01) ==
PROVIDERS: PCP Internal Medicine; Visit Provider Surgery
PROC: (CPT 49505; principal; 2023-12-02 12:10)
DX: K40.90 Unilateral inguinal hernia, without obstruction or gangrene, not specified as recurrent (principal); M51.16 Intervertebral disc disorders with radiculopathy, lumbar region; K58.2 Mixed irritable bowel syndrome; J45.20 Mild intermittent asthma, uncomplicated; F33.0 Major depressive disorder, recurrent, mild; F41.9 Anxiety disorder, unspecified; K75.81 Nonalcoholic steatohepatitis (NASH); K21.9 Gastro-esophageal reflux disease without esophagitis; Z79.899 Other long term (current) drug therapy
CPT/HCPCS: 49505; C1781; J0131; J0665; J0690; J1885; J2250; J2704; J3010

== ENCOUNTER → 2023-12-02 10:19 | Outpatient (BNV) | payer OTHER, SELFPAY | PROVIDERS: PCP Internal Medicine; Visit Provider Surgery | DX: K40.90 Unilateral inguinal hernia, without obstruction or gangrene, not specified as recurrent (principal) | CPT/HCPCS: 49505 ==

== ENCOUNTER 2023-12-13 10:53 | Outpatient (AMB) | payer OTHER, SELFPAY ==
[2023-12-13 11:02] VITALS: BP 120/75; PULSE 89; BMI 25.0
--- NOTE | 2023-12-13 11:02 | A.OFFVIS_ITS ---
Intake Vital Signs 12/13/23 11:02 Height 5 ft 10 in Weight 174 lb 6 oz BMI 25.0 BP 120/75 Blood Pressure Location Lt brachial Position Sitting Pulse 89 Intake Visit Reasons: S/P LIH w/mesh Intake Note: Patient is seen in office for post op assessment post left inguinal hernia repair. 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 Incisional discomfort is markedly improved. His increasing his activity level. He has tolerating a diet. Having regular bowel habits. No wound issues. [facility] Medical History History of abdominal abscess Irritable bowel syndrome with constipation Erectile dysfunction Lumbar disc herniation with radiculopathy Inattention Difficulty concentrating Recurrent mild major depressive disorder with anxiety Lumbago Irritable bowel syndrome with constipation and diarrhea Mild intermittent asthma Surgical History History of surgery No pertinent past surgical history Family History Father Depression Mental health disorder Mother Breast cancer Polycystic kidney disease Maternal Grandmother Stomach cancer Maternal Grandfather Bone cancer Brother No problems noted. Brother No problems noted. Brother No problems noted. Paternal Uncle Substance use disorder Paternal Aunt Substance use disorder Social History Housing: Apartment Alcohol intake: never Comment: COUNTS CORRECT Patient Tobacco Use Status: Never used Tobacco e-Cigarette/Vaping Use: Never Used service: No Current occupational status: employed Cognitive needs: No Hearing needs: No Vision needs: Yes Physical Exam Vital Signs: Last Vital Signs Pulse 89 12/13/23 11:02 BP 120/75 12/13/23 11:02 BMI result Body Mass Index 25.0 GI Other: Abdomen is soft. Wound clean dry intact healing very well Assessment & Plan Assessment & Plan (1) Status post inguinal hernia repair: Code(s): Z98.890 - Other specified postprocedural states; Z87.19 - Personal history of other diseases of the digestive system Plan Patient has been given local instructions and will follow-up p.r.n.. He will be given a note for 2 weeks light duty once he re commences his employment and a few weeks from now. All questions answered. Coding Level of Care Code Global (59029) Diagnoses Status post inguinal hernia repair Z98.890; Z87.19
== END 2023-12-13 11:06 | disposition home or self-care (01) ==
PROVIDERS: PCP Internal Medicine; Visit Provider Surgery
DX: Z98.890 Other specified postprocedural states (principal); Z87.19 Personal history of other diseases of the digestive system
CPT/HCPCS: 99024

== ENCOUNTER → 2023-12-13 10:53 | Outpatient (BNVA) | payer OTHER, SELFPAY | PROVIDERS: PCP Internal Medicine; Visit Provider Surgery | DX: Z48.815 Encounter for surgical aftercare following surgery on the digestive system (principal); Z87.19 Personal history of other diseases of the digestive system; Z98.890 Other specified postprocedural states | CPT/HCPCS: 99212 ==

== ENCOUNTER 2023-12-20 08:20 | Outpatient (AMB) | payer OTHER, SELFPAY ==
[2023-12-20 08:41] VITALS: BP 130/88; PULSE 75; TEMP 36.2; O2SAT 98; BMI 25.4
--- NOTE | 2023-12-20 08:41 | AM.OFFWIN_ITS ---
Intake Vital Signs 12/20/23 08:41 Height 5 ft 10 in Weight 177 lb BMI 25.4 BP 130/88 Blood Pressure Location Lt brachial Position Sitting Pulse 75 Pulse Source Pulse Oximeter Temp 97.1 F Temp Source Temporal Artery Scan Pulse Oximetry (%) 98 Oxygen Delivery Method Room Air Intake Visit Reasons: EP Swollen LT thumb Intake Note: pt is here today for swollen thumb started 2 days ago Patient Tobacco Use Status: Never used Tobacco Allergies No Known Allergies [No Known Allergies*] Allergy (Verified 12/20/23 08:44) Do you need a note to return to daycare/school/sports/work: No HPI HPI Comments History of Present Illness Details 38 y/o male patient who presents ti walk in clinic with c/o swelling left Thumb x 2 days. Two days ago, he got bitten by his own Cat at home when he tried to separate his fighting Cats. [facility] Medical History History of abdominal abscess Irritable bowel syndrome with constipation Erectile dysfunction Lumbar disc herniation with radiculopathy Inattention Difficulty concentrating Recurrent mild major depressive disorder with anxiety Lumbago Irritable bowel syndrome with constipation and diarrhea Mild intermittent asthma Surgical History History of surgery No pertinent past surgical history Family History Father Depression Mental health disorder Mother Breast cancer Polycystic kidney disease Maternal Grandmother Stomach cancer Maternal Grandfather Bone cancer Brother No problems noted. Brother No problems noted. Brother No problems noted. Paternal Uncle Substance use disorder Paternal Aunt Substance use disorder Social History Housing: Apartment Alcohol intake: never Comment: COUNTS CORRECT Patient Tobacco Use Status: Never used Tobacco e-Cigarette/Vaping Use: Never Used service: No Current occupational status: employed Cognitive needs: No Hearing needs: No Vision needs: Yes Review of Systems Const All systems reviewed & are unremarkable except as noted in HPI and below Physical Exam Vital Signs: Last Vital Signs Temp 97.1 F 12/20/23 08:41 Pulse 75 12/20/23 08:41 BP 130/88 12/20/23 08:41 Pulse Ox 98 12/20/23 08:41 Oxygen Delivery Method Room Air 12/20/23 08:41 BMI result Body Mass Index 25.4 Const Orientation/consciousness: patient oriented x3 Neuro General: patient oriented x3, gait normal and moves all extremities Extrem General: Yes capillary refill normal Left upper extremity: hand Details: normal capillary refill, neuromotor exam nor mal, warmth, swelling and abrasion Location: of the 5th digit Location: at the MCP joint; no crepitus and no foreign bodies Psych Speech and movement: Normal speech and movement present Assessment & Plan Assessment & Plan (1) Cat bite of finger: Code(s): S61.259A - Open bite of unspecified finger without damage to nail, initial encounter; W55.01XA - Bitten by cat, initial encounter Qualifiers: Encounter type: initial encounter Qualified Code(s): S61.259A - Open bite of unspecified finger without damage to nail, initial encounter; W55.01XA - Bitten by cat, initial encounter Plan: - Abx for 7 days - Warm Soaks for 20 minutes - RTC if symptoms worse. Medications: New cephalexin 500 mg PO BID 14 caps 0RF 7 days S61.259A - Open bite of unspecified finger without damage to nail, initial encounter, W55.01XA - Bitten by cat, initial encounter Coding Level of Care Code Est Pt Level 3 (01243) Diagnoses Cat bite of finger, initial encounter S61.259A; W55.01XA Encounter type: initial encounter Time Spent (min) 15
== END 2023-12-20 09:05 | disposition home or self-care (01) ==
PROVIDERS: PCP Internal Medicine; Visit Provider Nurse Practitioner Family
DX: S61.259A Open bite of unspecified finger without damage to nail, initial encounter (principal); W55.01XA Bitten by cat, initial encounter
CPT/HCPCS: 99213

== ENCOUNTER 2024-03-09 15:24 | Outpatient (AMB) | payer OTHER, SELFPAY ==
[2024-03-09 15:30] VITALS: BP 114/80; PULSE 79; O2SAT 98; BMI 25.9
--- NOTE | 2024-03-09 15:30 | A.OFFPC_ITS ---
Vital Signs 03/09/24 15:30 Height 5 ft 10 in Weight 180 lb 8 oz BMI 25.9 BP 114/80 Blood Pressure Location Rt brachial Position Sitting Pulse 79 Pulse Source Pulse Oximeter Pulse Oximetry (%) 98 Oxygen Delivery Method Room Air Intake Visit Reasons: per pt - unable to say over the phone (at work) Intake Note: Pt is here today to discuss personal concerns with his provider. Allergies No Known Allergies [No Known Allergies*] Allergy (Verified 06/20/24 00:42) Medication List - Last Reconciled 06/20/24 by Karen Abdi MD albuterol sulfate 90 mcg/actuation 2 puffs inhalation Q6H PRN ibuprofen 600 mg PO Q8H PRN omeprazole 20 mg PO DAILY tadalafil (Cialis) 5 mg PO DAILY Tobacco use date assessed: 03/09/24 Dental Screening Dental Screen Date: 03/09/24 Did you have a dental visit in the last 12 months?: Yes Did you have a dental problem in the last 6 months where you did not have access to dental care?: No Was dental information given to patient?: Patient has dentist HPI per pt - unable to say over the phone (at work) HPI Details 39-year-old male, here today complaining of acute onset of pain in his left scrotum, no history of trauma. He also has been having intermittent episodes of rectal dysfunction. Still gets morning erections, but has been having difficulty with maintaining erections during intercourse. [facility] Medical History History of abdominal abscess Irritable bowel syndrome with constipation Erectile dysfunction Lumbar disc herniation with radiculopathy Inattention Difficulty concentrating Recurrent mild major depressive disorder with anxiety Lumbago Irritable bowel syndrome with constipation and diarrhea Mild intermittent asthma Surgical History S/P left inguinal herniorrhaphy History of surgery No pertinent past surgical history Family History Father Depression Mental health disorder Mother Breast cancer Polycystic kidney disease Maternal Grandmother Stomach cancer Maternal Grandfather Bone cancer Brother No problems noted. Brother No problems noted. Brother No problems noted. Paternal Uncle Substance use disorder Paternal Aunt Substance use disorder Social History Housing: Apartment Alcohol intake: never Comment: COUNTS CORRECT Patient Tobacco Use Status: Never used Tobacco e-Cigarette/Vaping Use: Never Used service: No Current occupational status: employed Cognitive needs: No Hearing needs: No Vision needs: Yes Questionnaire Thrive Questionnaire Date Thrive assessed: 10/27/23 AUDIT C Alcohol Use Questionnaire (AUDIT-C) 1. How often do you have a drink containing alcohol?: Never 3. How often do you have six or more drinks on one occasion?: Never Total Score: 0 Score Reviewed/Action Taken: Yes KINGSLEY-7 AMB Questionnaire KINGSLEY-7 Date KINGSLEY - 7 assessed: 10/27/23 Source: Developed by Drs. Jeremie Medina, Jeannine Mc, Ravi Rock and colleagues, with an educational gal from [employer]. Review of Systems Const Denies body aches, Denies chills, Denies fatigue, Denies fever(s) and Denies headache(s) ENT Reports Normal hearing present and Denies headache(s) Card Reports no additional complaints Resp Reports no additional complaints GI Reports no additional complaints Reports as per HPI Neuro Reports Normal hearing present, Denies Abnormal speech present and Denies headache(s) Psych Reports no additional complaints Endo Denies fatigue Physical exam (Primary Care) Vital Signs: Last Vital Signs Pulse 79 03/09/24 15:30 BP 114/80 03/09/24 15:30 Pulse Ox 98 03/09/24 15:30 Oxygen Delivery Method Room Air 03/09/24 15:30 BMI result Body Mass Index 25.9 Tobacco/Smoking Status: Tobacco use Status Tobacco use date assessed 03/09/24 03/09/24 15:35 Patient Tobacco Use Status Never used Tobacco 03/09/24 15:35 e-Cigarette/Vaping Use Never Used 03/09/24 15:35 Thrive Assessment: Date of Thrive Assessment Date Thrive assessed 10/27/23 03/09/24 15:35 Const General: no acute distress and alert Nutritional Appearance: average body habitus Orientation/consciousness: patient oriented x3 Neck Neck: Yes full ROM, Yes no lymphadenopathy and Yes supple Resp Auscultation: clear to auscultation bilaterally Cardio Rate: regular rate Rhythm: regular rhythm Heart sounds: S1 normal heart sound present and S2 normal heart sound present GI Inspection: Yes normal to inspection Palpation (GI): Soft to palpation, nontender, no guarding and no masses Male General Exam: Yes normal external exam Scrotum: testes descended bilaterally, no inguinal hernias, no masses and no scrotal swelling Skin General skin exam: no rashes or lesions noted Neuro General: patient oriented x3, gait normal, tone normal, Normal light touch and pain sensation, no focal motor deficits and CN's II-XI intact bilaterally Cranial nerves: Yes Normal hearing present Cognition (Neuro): normal cognition Speech: No Abnormal speech present Gait exam (Neuro): Normal gait present Motor exam (neuro): 5/5 motor strength present throughout Extrem General: Yes full ROM, Yes no joint enlargement, Yes no clubbing, cyanosis or edema, Yes no calf tenderness and Yes normal gait Psych Appearance: grossly normal Mental Status: mental status grossly normal Speech and movement: Normal speech and movement present Affect: normal affect Attitude: cooperative Thought process: Normal thought process present Thought content: Normal thought content present Assessment and Plan Assessment & Plan (1) Testicular pain, left: Code(s): N50.812 - Left testicular pain (2) Erectile dysfunction: Code(s): N52.9 - Male erectile dysfunction, unspecified Plan Ultrasound of scrotum ordered, advised to take Aleve or Motrin as needed for pain, referral to urology ordered Orders: Orders US scrotum 03/13/24 N50.812 - Left testicular pain, N52.9 - Male erectile dysfunction, unspecified Referrals Urology Referral N52.9 - Male erectile dysfunction, unspecified, N50.812 - Left testicular pain Coding Level of Care Code Est Pt Level 3 (12919) Diagnoses Testicular pain, left N50.812 Erectile dysfunction N52.9
== END 2024-03-09 16:47 | disposition home or self-care (01) ==
PROVIDERS: PCP Internal Medicine; Visit Provider Internal Medicine
DX: N50.812 Left testicular pain (principal); N52.9 Male erectile dysfunction, unspecified
CPT/HCPCS: 99499

== ENCOUNTER 2024-03-13 15:26 | Outpatient (REF) | payer OTHER, SELFPAY ==
--- NOTE | ~2024-03-13 | US_ITS ---
EXAMINATION: US SCROTUM CLINICAL INFORMATION: Left testicular pain. COMPARISON: None available. TECHNIQUE: A sonogram of the scrotum was performed assessing newton-scale appearance and color Doppler flow. Spectral Doppler analysis of the arterial and venous flow were performed in the testes bilaterally. FINDINGS: RIGHT: Right testicle measures 4.7 x 2.0 x 3.2 cm, volume 15.7 mL. No focal testicular parenchymal lesions are visualized. Spectral Doppler analysis of the arterial and venous flow is normal in the right testis. Right epididymal head is there is a right epididymal head cyst at 5 x 4 mm. No right hydrocele is seen. Right epididymal Doppler flow is normal. Small right varicocele. LEFT: Left testicle measures 4.2 x 2.0 x 3.1 cm, volume 13.4 mL. No focal testicular parenchymal lesions are visualized. Spectral Doppler analysis of the arterial and venous flow is normal in the left testis. Left epididymal head is normal in size. No left hydrocele is seen. Left epididymal Doppler flow is normal. Moderate left varicocele. US/US scrotum IMPRESSION: Bilateral varicoceles. Testes intrinsically normal.
== END 2024-03-13 15:27 | disposition home or self-care (01) ==
LOC: HO.HMGCX 15:26
PROVIDERS: PCP Internal Medicine; Visit Provider Internal Medicine
DX: N50.812 Left testicular pain (principal); N52.9 Male erectile dysfunction, unspecified
CPT/HCPCS: 76870

== ENCOUNTER 2024-03-21 08:09 | Outpatient (AMB) | payer OTHER, SELFPAY ==
--- NOTE | 2024-03-21 08:10 | AM.OFFWIN_ITS ---
Intake Vital Signs 03/21/24 08:19 Height 5 ft 10 in Weight 181 lb BMI 26.0 BP 118/70 Blood Pressure Location Rt brachial Position Sitting Pulse 70 Pulse Source Pulse Oximeter Temp 98.0 F Temp Source Oral Pulse Oximetry (%) 98 Oxygen Delivery Method Room Air Intake Visit Reasons: EP LT side pain Intake Note: pt is here for left side pain and abd and groin area, denies injury Patient Tobacco Use Status: Never used Tobacco Allergies No Known Allergies [No Known Allergies*] Allergy (Verified 03/21/24 08:45) Medication List - Last Reconciled 03/21/24 by Hunter Dong MD albuterol sulfate 90 mcg/actuation 2 puffs inhalation Q6H PRN hydrocodone-acetaminophen 5-325 mg 1 tab PO Q4-6H PRN ibuprofen 600 mg PO Q8H PRN omeprazole 20 mg PO DAILY sennosides (Senna Laxative) 8.6 mg PO BEDTIME Do you need a note to return to daycare/school/sports/work: No HPI EP LT side pain HPI Details 39-year-old male presents to the office for a sick visit. Patient is reporting left lower quadrant pain for the past 2 weeks. He reports pain has been radiating into his groin or testicle area. No difficulty urinating. He was seen by his primary care provider who has ordered an ultrasound and a urology appointment. The appointment for urology is couple of weeks away. Patient reports that he has issues with erectile dysfunction since symptoms began. No fevers or chills. Able to function and do all activities of daily living. Urination causes no discomfort. Patient is a heterosexual, single par tner. Reports no discharge from the urethra. [facility] Medical History History of abdominal abscess Irritable bowel syndrome with constipation Erectile dysfunction Lumbar disc herniation with radiculopathy Inattention Difficulty concentrating Recurrent mild major depressive disorder with anxiety Lumbago Irritable bowel syndrome with constipation and diarrhea Mild intermittent asthma Surgical History History of surgery No pertinent past surgical history Family History Father Depression Mental health disorder Mother Breast cancer Polycystic kidney disease Maternal Grandmother Stomach cancer Maternal Grandfather Bone cancer Brother No problems noted. Brother No problems noted. Brother No problems noted. Paternal Uncle Substance use disorder Paternal Aunt Substance use disorder Social History Housing: Apartment Alcohol intake: never Comment: COUNTS CORRECT Patient Tobacco Use Status: Never used Tobacco e-Cigarette/Vaping Use: Never Used service: No Current occupational status: employed Cognitive needs: No Hearing needs: No Vision needs: Yes Physical Exam Vital Signs: Last Vital Signs Temp 98.0 F 03/21/24 08:19 Pulse 70 03/21/24 08:19 BP 118/70 03/21/24 08:19 Pulse Ox 98 03/21/24 08:19 Oxygen Delivery Method Room Air 03/21/24 08:19 BMI result Body Mass Index 26.0 Const General: cooperative and healthy appearing Nutritional Appearance: well nourished Orientation/consciousness: patient oriented x3 Limitations: no limitations HEENT Head: Yes normal to inspection Eyes General: appearance normal, both eyes and all related structures Neck Neck: Yes normal visual inspection Chest Chest palpation & inspection: normal palpation of entire chest wall Resp Effort & Inspection: normal respiratory effort GI Other: Left inguinal surgical scar. Other: Testicles are normal. No tenderness over the epididymis. Hernial orifices are open and no hernia. Neuro General: patient oriented x3 Results AMB Urinalysis, Automated UA Leukoctes 0 Fausto/uL Last Edit by Amando Leslie CMA on 03/21/24 09:00 UA Nitrite Negative Last Edit by Amando Leslie CMA on 03/21/24 09:00 UA Urobilinogen 0.2 mg/dL Last Edit by Amando Leslie CMA on 03/21/24 09 :00 UA Protein 0 mg/dL Last Edit by Amando Leslie CMA on 03/21/24 09:00 UA pH 8.0 Last Edit by Amando Leslie CMA on 03/21/24 09:00 UA Blood 0 Robson/uL Last Edit by Amando Lselie CMA on 03/21/24 09:00 UA Specific Bowen 1.015 Last Edit by Amando Leslie CMA on 03/21/24 09:00 UA Ketone Negative Last Edit by Amando Leslie CMA on 03/21/24 09:00 UA Bilirubin 0 mg/dL Last Edit by Amando Leslie CMA on 03/21/24 09:00 UA Glucose 0 mg/dL Last Edit by Amando Leslie CMA on 03/21/24 09:00 Assessment & Plan Assessment & Plan (1) Left groin pain: Code(s): R10.32 - Left lower quadrant pain Plan: Scrotal ultrasound done on 03/13. No official result available. A request has been sent to expedite the result. Urinalysis was done today which was unremarkable. Physical exam is unremarkable. BW to check inflammatory markers has been ordered. Orders: Orders Erythrocyte Sedimentation Rate Today R10.32 - Left lower quadrant pain Complete Blood Count no Diff Today R10.32 - Left lower quadrant pain Basic Metabolic Panel Today R10.32 - Left lower quadrant pain Liver Panel Today R10.32 - Left lower quadrant pain Prostate Specific Antigen Scr Today R10.32 - Left lower quadrant pain AMB Urinalysis Automated Today Z13.9 - Encounter for screening, unspecified Coding Level of Care Code Est Pt Level 3 (97419) Diagnoses Left groin pain R10.32
[2024-03-21 08:19] VITALS: BP 118/70; PULSE 70; TEMP 36.7; O2SAT 98; BMI 26.0
== END 2024-03-21 10:49 | disposition home or self-care (01) ==
PROVIDERS: PCP Internal Medicine; Visit Provider Internal Medicine
DX: R10.32 Left lower quadrant pain (principal)
CPT/HCPCS: 81003; 99213

== ENCOUNTER 2024-03-21 09:00 | Outpatient (REF) | payer OTHER, SELFPAY ==
[2024-03-21 11:23] LABS: Hematocrit 46.2 % (42.0-52.0); Hemoglobin 15.8 g/dl (14.0-18.0); Mean Corpuscular HGB Conc 34.2 g/dl (31.0-36.0); Mean Corpuscular Hemoglobin 29.8 pg (27.0-33.0); Mean Corpuscular Volume 87.2 fL (80.0-98.0); Mean Platelet Volume 10.6 fL (9.4-12.4); Platelet Count 235 X10*3/uL (160-400); Red Cell Distribution Width 12.6 % (11.0-16.0)
[2024-03-21 11:48] LABS: Alanine Aminotransferase 68 U/L (0-40); Albumin Level 4.8 g/dL (3.5-5.0); Alkaline Phosphatase 62 U/L (39-117); Anion Gap 11 (12-20); Aspartate Amino Transferase 54 U/L (5-37); Bilirubin Direct 0.2 mg/dL (0.0-0.5); Bilirubin Total 0.5 mg/dL (0.0-1.0); Blood Urea Nitrogen 16 mg/dL (9-16); Calcium 10.4 mg/dL (8.4-10.2); Carbon Dioxide 31 mmol/L (22-29); Chloride 104 mmol/L (96-108); Estimated Glomerular Filt Rate > 60; Glucose Random 103 mg/dL (60-115); Potassium 4.1 mmol/L (3.3-5.1); Sodium 142 mmol/L (135-145); Total Protein 7.7 g/dL (6.5-8.0)
[2024-03-21 12:01] LABS: Prostate Specific Antigen Scr 0.86 ng/mL (<0.05-4.0)
[2024-03-21 12:03] LABS: Erythrocyte Sedimentation Rate 2 MM/HR (0-15)
== END 2024-03-21 09:01 | disposition home or self-care (01) ==
LOC: HO.HMGCLDS 09:00
PROVIDERS: PCP Internal Medicine; Visit Provider Internal Medicine
DX: R10.32 Left lower quadrant pain (principal)
CPT/HCPCS: 36415; 80048; 80076; 84153; 85027; 85652

== ENCOUNTER 2024-04-11 11:01 | Outpatient (AMB) | payer OTHER, SELFPAY ==
--- NOTE | 2024-04-11 11:08 | MHC.OFFVIS ---
Intake Visit Reasons: post op pain/ED (has uro appt too) Intake Note: Patient here c/o lower abd pain. Hx of LIH repair on 12-02-23. Patient c/o: lt testicle pain. Experiencing erectile dysfunction after surgery. Of note patient is scheduled with Dr. Magdaleno Baron (urology) on 05-01-24. Agile Coach Required: No Accompanied by: Self / Same As Patient Allergies No Known Allergies [No Known Allergies*] Allergy (Verified 04/11/24 11:15) HPI Comments Details: Patient is status post left inguinal hernia repair several months ago. He has had recent collection of symptoms including left testicular pain and erectile dysfunction. He is scheduled to see Urology regarding this. He presents here have his hernia repair evaluated to see if this could be the cause of his current symptomatology. Otherwise patient was tolerating his diet, he is having regular bowel habits. He has no activity limitations. [facility] Medical History History of abdominal abscess Irritable bowel syndrome with constipation Erectile dysfunction Lumbar disc herniation with radiculopathy Inattention Difficulty concentrating Recurrent mild major depressive disorder with anxiety Lumbago Irritable bowel syndrome with constipation and diarrhea Mild intermittent asthma Surgical History History of surgery No pertinent past surgical history Family History Father Depression Mental health disorder Mother Breast cancer Polycystic kidney disease Maternal Grandmother Stomach cancer Maternal Grandfather Bone cancer Brother No problems noted. Brother No problems noted. Brother No problems noted. Paternal Uncle Substance use disorder Paternal Aunt Substance use disorder Social History Housing: Apartment Alcohol intake: never Comment: COUNTS CORRECT Patient Tobacco Use Status: Never used Tobacco e-Cigarette/Vaping Use: Never Used service: No Current occupational status: employed Cognitive needs: No Hearing needs: No Vision needs: Yes Physical Exam GI Other: Patient was examined both supine and standing with Valsalva. Abdomen is soft and benign. Right groin negative. Genitalia grossly within normal limits. Left hernia repair site is well healed. No evidence of any recurrence or infection Assessment & Plan Assessment & Plan (1) Status post inguinal hernia repair: Code(s): Z98.890 - Other specified postprocedural states; Z87.19 - Personal history of other diseases of the digestive system Category: Medical Plan As noted above, at present no evidence of recurrence or infection. No further interventions regarding his symptomatology from the hernia perspective need to be undertaken. Patient will be seen by Urology and further interventions studies will be directed by their evaluation. All questions answered. Patient will otherwise follow-up will be p.r.n.. Coding Level of Care Code Tele Est Pt Level 3 (76129) Diagnoses Status post inguinal hernia repair Z98.890; Z87.19
== END 2024-04-11 11:22 | disposition home or self-care (01) ==
PROVIDERS: PCP Internal Medicine; Visit Provider Surgery
DX: Z98.890 Other specified postprocedural states (principal); Z87.19 Personal history of other diseases of the digestive system
CPT/HCPCS: 99213

== ENCOUNTER → 2024-04-11 11:01 | Outpatient (BNVA) | payer OTHER, SELFPAY | PROVIDERS: PCP Internal Medicine; Visit Provider Surgery | DX: Z09 Encounter for follow-up examination after completed treatment for conditions other than malignant neoplasm (principal); Z87.19 Personal history of other diseases of the digestive system | CPT/HCPCS: 99212 ==

== ENCOUNTER 2024-04-18 16:00 | Outpatient (RCR) | payer OTHER, SELFPAY ==
--- NOTE | 2024-03-20 10:28 | MHC.PT.EP ---
[facility] [place] [facility] [place] [facility] [place] [facility] [address] [place] [address] [phone] F: [phone] F: [phone] F: [phone] F: [phone] Physical Therapy Plan of Care Date of Evaluation: 03/15/24 Date of Surgery: Diagnosis: lumbar Assessment: Pt is a 39yo male who present approx 1 year following onset of low back pain. MRI demonstrated multi-level disc protrusions. Pt no longer with LE pain, however low back pain remains. PT exam reveals multiple impairments including muscle imbalances, poor posture, and poor body mechanics. Skilled PT indicated to reduce pain, promote body awareness and back protection to prevent worsening of DDD, and teach HEP to continue to rehabilitate low back following PT discharge. Pt is in agreement with POC and is motivated to participate. Frequency and Duration: The patient will be seen 2x/week, x 4 weeks Short Term Goals: 1. In 2 weeks, patient will be able to sit in a normal arm chair with proper alignment, not sacral sitting, no verbal cues needed. 2. In 2 weeks, patient will be able to complete single leg hip lift exercises without increased pain, indicating improved lumbar stab and ability to activate hip extensors more effectively. 3. In 2 weeks, patient will be I with phase 1 HEP. Automation Clerk Goals: 1. In 4 weeks, improve ABEL score by 10 points indicating reduced pain and improved functional mobility. 2. In 4 weeks, patient will improve TA and rectus abdominus strength 1/2 grade and be I with HEP to continue with core stabilization exercises. 3. B HS flexibility WNL in 4 weeks. Treatment Plan: Modalities to reduce pain, spasms and effusion. Manual therapy to restore motion and function. Therapeutic exercise to improve strength and flexibility. Neuromuscular re-education for posture and balance. Therapeutic activities to return to functional activities of daily living. Electronically signed by: Edna Badillo PT, DPT Please sign and return to therapist. Thank you for your referral.
--- NOTE | 2024-05-17 08:42 | MHC.PT.DC ---
[facility] [place] Office [place] Office [place] Office [address] [place] Gomez [address] [phone] F: [phone] F: [phone] F: [phone] F: [phone] Physical Therapy Discharge Report Diagnosis: low back pain Date of Surgery: Date of Evaluation: 03/15/24 Date of Discharge: 05/17/24 Treatments to Date: 5 Cancellations to Date: No Shows to Date: Discharge Status: Achieved Goals Improved Function Independent with HEP Patient Elected to Stop Discharge Summary: Patient came to 5 visits of PT. He no longer had pain with ther-ex or daily routine. He was introduced to progression of exercises but I also educated him on the importance of changing up his routines, exercising more and lifting safely. For now he will try his exercises on his own and will call if he wants to return for further education. Chart was closed after not being at the facility for 1 month. Electronically signed by: Leora Gomez, PT Please sign and return to therapist. Thank you for your referral.
== END 2024-05-17 08:42 | disposition home or self-care (01) ==
LOC: HO.PTCHIC 16:00
PROVIDERS: PCP Internal Medicine; Visit Provider Internal Medicine
DX: M51.16 Intervertebral disc disorders with radiculopathy, lumbar region (principal)
CPT/HCPCS: 97110; 97140; 97161; 97530

== ENCOUNTER 2024-04-20 13:46 | Outpatient (AMB) | payer OTHER, SELFPAY ==
[2024-04-20 13:59] VITALS: BP 130/80; PULSE 86; O2SAT 98; BMI 26.4
--- NOTE | 2024-04-20 13:59 | A.OFFPC_ITS ---
Vital Signs 04/20/24 13:59 Height 5 ft 10 in Weight 184 lb BMI 26.4 BP 130/80 Blood Pressure Location Lt brachial Position Sitting Pulse 86 Pulse Source Pulse Oximeter Pulse Oximetry (%) 98 Oxygen Delivery Method Room Air Intake Visit Reasons: PE Intake Note: Pt is here today for his PE Allergies No Known Allergies [No Known Allergies*] Allergy (Verified 04/20/24 14:24) Medication List - Last Reconciled 04/20/24 by Karen Abdi MD albuterol sulfate 90 mcg/actuation 2 puffs inhalation Q6H PRN ibuprofen 600 mg PO Q8H PRN omeprazole 20 mg PO DAILY Tobacco use date assessed: 04/20/24 Dental Screening Dental Screen Date: 04/20/24 Did you have a dental visit in the last 12 months?: No Did you have a dental problem in the last 6 months where you did not have access to dental care?: No Was dental information given to patient?: Patient has dentist HPI PE HPI Details 39-year-old male with history of esophag itis, seen on upper endoscopy, history of right inguinal hernia status post repair, here today for physical exam.. He has erectile dysfunction, testosterone levels and PSA were all within normal limits. He does have an appointment with Neurology coming up on 05/15/2024. Has depression and anxiety, currently being seen at [facility], patient however not satisfied with her care and he has made an appointment to see a psychiatrist and therapist at [place]. Does not want to start medication at present time. Has mild intermittent asthma, using only albuterol inhaler, which she sometimes would need to use 2 to 3 times a week. Complains of recurrent nasal congestion with postnasal drainage usually worse at night. Has antihistamines at home but has not been taking it. [facility] Medical History (Updated 04/20/24 @ 14:55 by Karen Abdi MD) History of abdominal abscess Irritable bowel syndrome with constipation Erectile dysfunction Lumbar disc herniation with radiculopathy Inattention Difficulty concentrating Recurrent mild major depressive disorder with anxiety Lumbago Irritable bowel syndrome with constipation and diarrhea Mild intermittent asthma Surgical History (Updated 04/20/24 @ 14:51 by Karen Abdi MD) S/P left inguinal herniorrhaphy History of surgery No pertinent past surgical history Family History Father Depression Mental health disorder Mother Breast cancer Polycystic kidney disease Maternal Grandmother Stomach cancer Maternal Grandfather Bone cancer Brother No problems noted. Brother No problems noted. Brother No problems noted. Paternal Uncle Substance use disorder Paternal Aunt Substance use disorder Social History Housing: Apartment Alcohol intake: never Comment: COUNTS CORRECT Patient Tobacco Use Status: Never used Tobacco e-Cigarette/Vaping Use: Never Used service: No Current occupational status: employed Cognitive needs: No Hearing needs: No Vision needs: Yes Questionnaire PHQ-9 Over the last 2 weeks, how often have you been bothered by any of the following problems? 1. Little interest or pleasure in doing things: several days 2. Feeling down, depressed, or hopeless: several days 3. Trouble falling or staying asleep, or sleeping too much: more than half the days 4. Feeling tired or having little energy: several days 5. Poor appetite or overeating: not at all 6. Feeling bad about yourself - or that you are a failure or have let yourself or your family down: several days 7. Trouble concentrating on things, such as reading the newspaper or watching television: several days 8. Moving or speaking so slowly that other people could have noticed. Or the opposite - being so fidgety or restless that you have been moving around a lot more than usual: not at all 9. Thoughts that you would be better off or of hurting yourself in some way: not at all Total score: 7 Depression Screening Interpretation: Positive (Currently [facility], patient to switch to another therapist and psychiatrist in [facility]) Depression Screening Follow-up: Existing condition, In treatment and Community Mental Health Worker F/U Depression Screening Done: Yes Source: Developed by Drs. Jeremie Medina, Jeannine Mc, Ravi Rock and colleagues, with an educational gal from [employer]. Thrive Questionnaire Date Thrive assessed: 04/20/24 I am a: Patient What is your living situation today?: I have a steady place to live Within the past 12 months, did the food you bought not last and you didn't have the money to get more?: Never true Within the past 12 months, did you worry whether your food would run out before you got money to buy more?: Never true Do you have trouble paying for medicines?: No Do you have trouble getting transportation to medical appointments?: No Do you have trouble paying your heating and electricity bill?: No Do you have trouble taking care of your child, family member or friend?: No Do you have trouble with day-to-day activities such as bathing, preparing meals, shopping, managing finances, etc.?: No Are you currently unemployed and looking for a job?: No Are you interested in more education?: Yes Please select the resources that you would like help with: Housing/Correction and Job search/training Currently or been in a relationship where the following occur: No concerns reported THRIVE Score: 0 AUDIT C Alcohol Use Questionnaire (AUDIT-C) 1. How often do you have a drink containing alcohol?: Never Total Score: 0 KINGSLEY-7 AMB Questionnaire KINGSLEY-7 Date KINGSLEY - 7 assessed: 04/20/24 Feeling nervous, anxious, or on edge: 3 = Nearly every day Not being able to stop or control worryin = Nearly every day Worrying too much about different things: 3 = Nearly every day Trouble relaxin = Nearly every day Being so restless that it is hard to sit still: 2 = More than half the days Becoming easily annoyed or irritable: 3 = Nearly every day Feeling afraid as if something awful might happen: 3 = Nearly every day Total KINGSLEY-7 score (0-4 normal; 5-9 mild; 10-14 moderate; 15-21 severe): 20 Source: Developed by Drs. Jeremie Medina, Jeannine Mc, Ravi Rock and colleagues, with an educational gal from [employer]. KINGSLEY-7 Assessment Billing KINGSLEY-7 Assessment Tool: KINGSLEY-7 Assessment 20794 ACT Questionnaire In the past 4 weeks, how much of the time did your asthma keep you from getting as much done at work, school or at home?: None of the time During the past 4 weeks, how often have you had shortness of breath?: 1-2 times a week During the past 4 weeks, how often did your asthma symptoms wake you up at night or earlier than usual in the morning?: Once or twice per week During the past 4 weeks, how often have you had to use your rescue inhaler or nebulizer medication?: 2-3 times a week How would you rate your asthma control during the past 4 weeks?: Somewhat controlled ACT Interpretation: Positive Score: 19 Review of Systems Const Denies body aches, Denies fatigue, Denies fever(s), Denies headache(s) and Denies weakness Eyes Denies change in vision, Denies eye discharge and Denies itchy eyes ENT Reports Normal hearing present and Denies headache(s) Card Denies chest pain, Denies lightheadedness, Denies palpitations and Denies dyspnea Resp Denies chest congestion, Denies cough, Denies dyspnea and Denies wheezing GI Denies abdominal pain, Denies change in bowel habits and Denies heartburn Denies hematuria, Denies difficulty urinating, Reports erectile dysfunction, Denies genital lesions, Denies dysuria, Denies penile discharge, Denies scrotal swelling, Denies urinary frequency and Denies urinary urgency Musc Reports back pain (Lower back, currently getting physical therapy) Skin/Breast Denies breast pain, Denies breast mass, Denies lesions and Denies rash Neuro Reports Normal hearing present, Denies Abnormal speech present, Denies headache(s) and Denies weakness Psych Reports as per HPI ([facility] by [facility]) Endo Denies fatigue, Denies polydipsia, Denies polyuria and Denies palpitations Jori/Lymph Denies easy bruising Aller/Immun Denies itchy eyes, Denies seasonal rhinorrhea and Denies wheezing Physical exam (Primary Care) Vital Signs: Last Vital Signs Pulse 86 04/20/24 13:59 BP 130/80 04/20/24 13:59 Pulse Ox 98 04/20/24 13:59 Oxygen Delivery Method Room Air 04/20/24 13:59 BMI result Body Mass Index 26.4 Tobacco/Smoking Status: Tobacco use Status Tobacco use date assessed 04/20/24 04/20/24 14:05 Patient Tobacco Use Status Never used Tobacco 04/20/24 14:05 e-Cigarette/Vaping Use Never Used 04/20/24 14:05 PHQ-9: PHQ-9 Score PHQ-9: Total score 7 04/20/24 14:53 Depression Screening Interpretation: Positive (Currently being [facility], patient to switch to another therapist and psychiatrist in [facility]) Depression Screening Follow-up: Existing condition, In treatment and Community Mental Health Worker F/U Thrive Assessment: Date of Thrive Assessment Date Thrive assessed 04/20/24 04/20/24 14:05 Currently or been in a relationship where the following occur: No concerns reported Advance Care Planning discussion: Completed/Scanned Date of discussion: 04/20/24 Who was present: Patient Forms completed: Health Care Proxy Time spent: 16-45 minutes Actual minutes spent: 16 Const General: no acute distress and alert Nutritional Appearance: average body habitus Orientation/consciousness: patient oriented x3 HENMT Head: Yes normocephalic Ears: hearing grossly normal bilaterally and Abnormal EAC present excessive cerumen bilateral General nose exam: Normal external nose present Face and sinus: Yes face symmetric Mouth: Normal oral and palatal mucosa present, oropharynx normal and moist mucous membranes Eyes General: appearance normal, both eyes and all related structures Neck Neck: Yes full ROM, Yes no lymphadenopathy and Yes supple Resp Auscultation: clear to auscultation bilaterally Cardio Rate: regular rate Rhythm: regular rhythm Heart sounds: S1 normal heart sound present and S2 normal heart sound present GI Inspection: Yes normal to inspection Palpation (GI): Soft to palpation, nontender, no guarding and no masses Male General Exam: Yes normal external exam Back/Spine/Pelvis Thoracic/Lumbar Spine: straight leg raise negative bilaterally and paraspinal muscle tenderness bilaterally in the lower lumbar Skin General skin exam: no rashes or lesions noted Neuro General: patient oriented x3, gait normal, tone normal, Normal light touch and pain sensation, no focal motor deficits and CN's II-XI intact bilaterally Cranial nerves: Yes Normal hearing present Cognition (Neuro): normal cognition Speech: No Abnormal speech present Gait exam (Neuro): Normal gait present Motor exam (neuro): 5/5 motor strength present throughout Extrem General: Yes full ROM, Yes no joint enlargement, Yes no clubbing, cyanosis or edema, Yes no calf tenderness and Yes normal gait Psych Appearance: grossly normal Mental Status: mental status grossly normal Speech and movement: Normal speech and movement present Affect: normal affect Attitude: cooperative Thought process: Normal thought process present Thought content: Normal thought content present Assessment and Plan Assessment & Plan (1) Annual visit for general adult medical examination with abnormal findings: Code(s): Z00.01 - Encounter for general adult medical examination with abnormal findings Plan: Will check appropriate labs. Recommended dental visit every 6 months and regular eye exams, at least every 2 years. Instructed to do self-testicular exam check for any mass. Has had COVID vaccines does not want to get the booster, gets yearly flu shot , up-to-date with Tdap (2) Hypercalcemia: Code(s): E83.52 - Hypercalcemia Plan: Ordered ionized serum calcium to confirm elevated calcium levels (3) GERD (gastroesophageal reflux disease): Code(s): K21.9 - Gastro-esophageal reflux disease without esophagitis Plan: Currently on omeprazole 20 mg daily (4) Erectile dysfunction: Code(s): N52.9 - Male erectile dysfunction, unspecified Qualifiers: Erectile dysfunction type: unspecified Qualified Code(s): N52.9 - Male erectile dysfunction, unspecified Plan: Has an appointment with Urology already scheduled 05/15/24, previous testosterone levels were within normal limit (5) Recurrent mild major depressive disorder with anxiety: Code(s): F33.0 - Major depressive disorder, recurrent, mild; F41.9 - Anxiety disorder, unspecified Plan: Currently followed at [facility], patient states that he is switching to another psychiatrist and therapist in [place] (6) Mild intermittent asthma: Code(s): J45.20 - Mild intermittent asthma, uncomplicated Qualifiers: Asthma complication type: uncomplicated Qualified Code(s): J45.20 - Mild intermittent asthma, uncomplicated Plan: Continue with albuterol inhaler as needed for episodes of bronchospasm and wheezing. Advised to start taking his antihistamines at night to prevent postnasal drainage which can trigger his asthma. (7) Lumbar disc herniation with radiculopathy: Code(s): M51.16 - Intervertebral disc disorders with radiculopathy, lumbar region Plan: Currently getting physical therapy (8) Advanced directives, counseling/discussion: Code(s): Z71.89 - Other specified counseling Plan: Initiated the conversation about Advanced Directives. Advanced Directives help patients prepare for current and future decisions about their medical treatment and place of care. Discussed with patient that it is a process where a patients current condition and prognosis are reviewed, their wishes for information regarding their illness are elicited, and likely medical dilemmas are presented and options discussed. Healthcare proxy form completed today. The form can be amended as needed, reviewed yearly and make changes as needed Orders: Orders Glucose Fasting Today E83.52 - Hypercalcemia, Z13.1 - Encounter for screening for diabetes mellitus, Z13.220 - Encounter for screening for lipoid disorders Lipid Panel Today E83.52 - Hypercalcemia, Z13.1 - Encounter for screening for diabetes mellitus, Z13.220 - Encounter for screening for lipoid disorders Hemoglobin and Hematocrit Today E83.52 - Hypercalcemia, Z13.1 - Encounter for screening for diabetes mellitus, Z13.220 - Encounter for screening for lipoid disorders Calcium, Ionized Today E83.52 - Hypercalcemia, Z13.1 - Encounter for screening for diabetes mellitus, Z13.220 - Encounter for screening for lipoid disorders Vitamin D 25-OH Total Today E83.52 - Hypercalcemia, Z13.1 - Encounter for screening for diabetes mellitus, Z13.220 - Encounter for screening for lipoid disorders Coding Level of Care Code Est Pt Prev Care [id number]([id number]) Diagnoses Annual visit for general adult medical examination with abnormal findings Z00.01 Hypercalcemia E83.52 GERD (gastroesophageal reflux disease) K21.9 Erectile dysfunction, unspecified erectile dysfunction type N52.9 Erectile dysfunction type: unspecified Recurrent mild major depressive disorder with anxiety F33.0; F41.9 Mild intermittent asthma without complication J45.20 Asthma complication type: uncomplicated Lumbar disc herniation with radiculopathy M51.16 Advanced directives, counseling/discussion Z71.89 Additional Codes KINGSLEY-7 Assessment Billing - KINGSLEY-7 Assessment Tool: KINGSLEY-7 Assessment [id number] ([id number]) Vital Signs *Quality* - Advance Care Planning discussion: Completed/Scanned ([id number]) Vital Signs *Quality* - Time spent: 16-45 minutes ([id number])
== END 2024-04-20 14:49 | disposition home or self-care (01) ==
PROVIDERS: PCP Internal Medicine; Visit Provider Internal Medicine
DX: Z00.00 Encounter for general adult medical examination without abnormal findings (principal); F33.0 Major depressive disorder, recurrent, mild; E83.52 Hypercalcemia; K21.9 Gastro-esophageal reflux disease without esophagitis; N52.9 Male erectile dysfunction, unspecified; F41.9 Anxiety disorder, unspecified; J45.20 Mild intermittent asthma, uncomplicated; M51.16 Intervertebral disc disorders with radiculopathy, lumbar region; Z71.89 Other specified counseling
CPT/HCPCS: 1123F; 99395; 99497

== ENCOUNTER 2024-05-10 10:18 | Outpatient (AMB) | payer OTHER, SELFPAY ==
--- NOTE | 2024-05-10 11:00 | MHC.OFFVIS ---
Intake Visit Reasons: erectile dysfunction/scrotal pain Intake Note: New patient is present for Erectile Dysfunction and Scrotal Pain Patient has a recent Scrotal U/S 02/2024 Recent PSA- 0.86 (03/21/2024 Last Testosterone: 2022 No recent lab test done Home Organizer Required: No Accompanied by: Self / Same As Patient Allergies No Known Allergies [No Known Allergies*] Allergy (Verified 06/20/24 00:42) Medication List - Last Reconciled 05/10/24 by Manas Ramos MD albuterol sulfate 90 mcg/actuation 2 puffs inhalation Q6H PRN doxycycline hyclate 100 mg PO BID 10 days ibuprofen 600 mg PO Q8H PRN omeprazole 20 mg PO DAILY tadalafil (Cialis) 5 mg PO DAILY HPI Comments Details: Delano is here for [employer] evaluation testicular pain, varicoceles. Pt complains of ED. Testicular pain iminimal. Reviewed scrotal US: B/L varicoceles- L>R. Discussed trial of cialis. Will check labs testosterone, PSA. [facility] Medical History History of abdominal abscess Irritable bowel syndrome with constipation Erectile dysfunction Lumbar disc herniation with radiculopathy Inattention Difficulty concentrating Recurrent mild major depressive disorder with anxiety Lumbago Irritable bowel syndrome with constipation and diarrhea Mild intermittent asthma Surgical History S/P left inguinal herniorrhaphy History of surgery No pertinent past surgical history Family History Father Depression Mental health disorder Mother Breast cancer Polycystic kidney disease Maternal Grandmother Stomach cancer Maternal Grandfather Bone cancer Brother No problems noted. Brother No problems noted. Brother No problems noted. Paternal Uncle Substance use disorder Paternal Aunt Substance use disorder Social History Housing: Apartment Alcohol intake: never Comment: COUNTS CORRECT Patient Tobacco Use Status: Never used Tobacco e-Cigarette/Vaping Use: Never Used service: No Current occupational status: employed Cognitive needs: No Hearing needs: No Vision needs: Yes Review of Systems Const All systems reviewed & are unremarkable except as noted in HPI and below Reports no additional complaints Eyes Reports no additional complaints ENT Reports no additional complaints Card Reports no additional complaints Resp Reports no additional complaints GI Reports no additional complaints Reports as per HPI Musc Reports no additional complaints Skin/Breast Reports system reviewed and no additional complaints, except as documented Neuro Reports no additional complaints Psych Reports no additional complaints Endo Reports no additional complaints Jori/Lymph Reports no additional complaints Aller/Immun Reports no additional complaints Physical Exam Const General: healthy appearing, no acute distress and well developed Orientation/consciousness: patient oriented x3 HEENT Head: Yes normocephalic and Yes atraumatic Eyes Conjunctivae: conjunctivae normal Neck Neck: Yes normal visual inspection Chest Chest palpation & inspection: normal inspection of the chest Resp Effort & Inspection: normal respiratory effort Cardio Rate: regular rate GI Inspection: Yes normal to inspection Palpation (GI): Soft to palpation Scrotum: scrotum normal Skin General skin exam: no rashes or lesions noted Neuro General: patient oriented x3 Extrem General: No pedal edema Psych Appearance: grossly normal Affect: normal affect Results AMB Urinalysis, Automated UA Leukoctes 0 Fausto/uL Last Edit by Karyn Agarwal [facility] on 05/10/24 11:21 UA Nitrite Negative Last Edit by Karyn Agarwal [facility] on 05/10/24 11:21 UA Urobilinogen 0.2 mg/dL Last Edit by Karyn Agarwal [facility] on 05/10/24 11:21 UA Protein 0 mg/dL Last Edit by Karyn Agarwal [facility] on 05/10/24 11:21 UA pH 7.5 Last Edit by Karyn Agarwal [facility] on 05/10/24 11:21 UA Blood 0 Robson/uL Last Edit by Karyn Agarwal [facility] on 05/10/24 11:21 UA Specific Patterson 1.010 Last Edit by Karyn Agarwal [facility] on 05/10/24 11:21 UA Ketone Negative Last Edit by Karyn Agarwal [facility] on 05/10/24 11:21 UA Bilirubin 0 mg/dL Last Edit by Karyn Agarwal [facility] on 05/10/24 11:21 UA Glucose 0 mg/dL Last Edit by Karyn Agarwal [facility] on 05/10/24 11:21 Results Reviewed Results Reviewed: Laboratory Last Values Urine pH (Auto) 7.5 05/10/24 11:20 Specific Patterson (Auto) 1.010 05/10/24 11:20 Urine Protein (Auto) 0 mg/dL 05/10/24 11:20 Glucose (UA)(Auto) 0 mg/dL 05/10/24 11:20 Urine Ketones (Auto) Negative 05/10/24 11:20 Urine Blood (Auto) 0 Robson/uL 05/10/24 11:20 Urine Nitrite (Auto) Negative 05/10/24 11:20 Urine Bilirubin (Auto) 0 mg/dL 05/10/24 11:20 Urine Urobilinogen (Auto) 0.2 mg/dL 05/10/24 11:20 Leukocyte Esterase (Auto) 0 Fausto/uL 05/10/24 11:20 Date of Service: 03/13/24 EXAMINATION: US SCROTUM CLINICAL INFORMATION: Left testicular pain. COMPARISON: None available. TECHNIQUE: A sonogram of the scrotum was performed assessing newton-scale appearance and color Doppler flow. Spectral Doppler analysis of the arterial and venous flow were performed in the testes bilaterally. FINDINGS: RIGHT: Right testicle measures 4.7 x 2.0 x 3.2 cm, volume 15.7 mL. No focal testicular parenchymal lesions are visualized. Spectral Doppler analysis of the arterial and venous flow is normal in the right testis. Right epididymal head is there is a right epididymal head cyst at 5 x 4 mm. No right hydrocele is seen. Right epididymal Doppler flow is normal. Small right varicocele. LEFT: Left testicle measures 4.2 x 2.0 x 3.1 cm, volume 13.4 mL. No focal testicular parenchymal lesions are visualized. Spectral Doppler analysis of the arterial and venous flow is normal in the left testis. Left epididymal head is normal in size. No left hydrocele is seen. Left epididymal Doppler flow is normal. Moderate left varicocele. IMPRESSION: Bilateral varicoceles. Testes intrinsically normal. CT of the abdomen with and without IV contrast 10/25/23 FINDINGS: LUNG BASES: The visualized lung bases are unremarkable. LIVER, GALLBLADDER, AND BILIARY TREE: The liver is normal in size and contour. Tiny hepatic hypodensity too small to characterize. The common duct measures 6 mm at the lola hepatis. No intrahepatic biliary ductal dilatation.. The gallbladder is unremarkable with no evidence of radiopaque gallstones, gallbladder wall thickening, or obvious pericholecystic inflammatory changes. PANCREAS: No ductal dilatation. SPLEEN: Not enlarged. ADRENAL GLANDS: No adrenal mass. KIDNEYS AND URETERS: The kidneys are normal in size, shape, and attenuation. No renal or ureteral calculus. No hydronephrosis or perinephric stranding. BLADDER: Circumferential wall thickening. GASTROINTESTINAL TRACT: Small and large bowel loops are of normal caliber. No small bowel obstruction. Marked stool throughout the colon. ABDOMINAL WALL: Small fat-containing left inguinal hernia. LYMPH NODES: No bulky lymphadenopathy. VASCULAR: Normal caliber abdominal aorta. PELVIC VISCERA: Heterogeneous appearance of the prostate gland with hypoattenuating foci. OSSEOUS STRUCTURES: No destructive bone lesions. IMPRESSION: Heterogeneous appearance of the prostate gland with hypoattenuating foci. Circumferential bladder wall thickening. Advise clinical correlation for infection. Mild dilatation of the common duct at the lola hepatis without intrahepatic biliary ductal dilatation or dilatation of the main pancreatic duct. The appearance is unchanged relative to the 08/13/2018 examination. Assessment & Plan Assessment & Plan (1) Screening PSA (prostate specific antigen): Code(s): Z12.5 - Encounter for screening for malignant neoplasm of prostate Category: Medical (2) Erectile dysfunction: Code(s): N52.9 - Male erectile dysfunction, unspecified Category: Medical Qualifiers: Erectile dysfunction type: unspecified Qualified Code(s): N52.9 - Male erectile dysfunction, unspecified Plan Daily Cialis, check labs. Orders: Orders PSA,Total (Free>4and<10) 05/10/24 Z12.5 - Encounter for screening for malignant neoplasm of prostate Testosterone, Free/Total 05/10/24 N52.9 - Male erectile dysfunction, unspecified AMB Urinalysis Automated 05/10/24 Z13.9 - Encounter for screening, unspecified Medications: New tadalafil (Cialis) [id number] [facility] [id number] Member [id number] 5 mg PO DAILY 30 tabs 7RF doxycycline hyclate 100 mg PO BID 20 tabs 0RF 10 days Patient Instructions: The patient had an opportunity to ask questions regarding treatment plan. The patient expressed understanding and agreement with the above treatment plan. The patient is aware they should contact our office by phone for worsening of their current condition or the appearance of new symptoms. Compliance is encouraged with any medications and followup testing that is ordered. It is a privilege to be allowed the opportunity to participate in the urologic care of your patient. If you have any questions or concerns regarding treatment for the above conditions please do not hesitate to contact me. The office telephone contact is [phone]. This note is constructed in part using voice recognition software. While every effort has been made to ensure accuracy moving van driver errors may have been included. Yours sincerely, Manas Ramos MD Coding Level of Care Code New Pt Level 4 (42895) Diagnoses Screening PSA (prostate specific antigen) Z12.5 Erectile dysfunction, unspecified erectile dysfunction type N52.9 Erectile dysfunction type: unspecified
== END 2024-05-10 12:22 | disposition home or self-care (01) ==
PROVIDERS: PCP Internal Medicine; Visit Provider Urology
DX: Z12.5 Encounter for screening for malignant neoplasm of prostate (principal); N52.9 Male erectile dysfunction, unspecified
CPT/HCPCS: 99204

== ENCOUNTER 2024-05-10 10:18 | Outpatient (REF) | payer OTHER, SELFPAY ==
[2024-05-10 16:59] LABS: Hemoglobin 15.6 g/dl (14.0-18.0)
[2024-05-10 17:29] LABS: Cholesterol 137 mg/dL (<200); Glucose Fasting 84 mg/dL (60-99); HDL Cholesterol 57 mg/dL (>40); LDL Cholesterol Calculated 70 mg/dL (<100); Triglycerides 50 mg/dL (<150)
[2024-05-10 17:45] LABS: Vitamin D 25-OH Total 45.4 ng/mL (>30)
[2024-05-12 15:48] LABS: Calcium, Ionized 5.2 mg/dL (4.7-5.5)
[2024-05-14 23:49] LABS: Testosterone, Free 91.1 pg/mL (35.0-155.0); Testosterone, Total 836 ng/dL (250-1100)
== END 2024-05-10 10:19 | disposition home or self-care (01) ==
LOC: HO.HMGCLDS 10:18
PROVIDERS: PCP Internal Medicine; Visit Provider Urology
DX: Z13.1 Encounter for screening for diabetes mellitus (principal); Z13.220 Encounter for screening for lipoid disorders; Z12.5 Encounter for screening for malignant neoplasm of prostate; N52.9 Male erectile dysfunction, unspecified; E83.52 Hypercalcemia
CPT/HCPCS: 36415; 80061; 81003; 82306; 82330; 82947; 84153; 84402; 84403; 85014; 85018; 99202

== ENCOUNTER 2024-06-08 15:03 | Emergency (ER) | payer OTHER, SELFPAY ==
[2024-06-08 15:18] VITALS: BP 117/89; PULSE 77; RESP 16; TEMP 37.1; O2SAT 98; BMI 25.8
--- NOTE | 2024-06-08 15:18 | ED.URI ---
HPI - URI/Sore Throat General Chief Complaint: Upper Respiratory Symptoms Stated Complaint: sob,congested cough,headache covid+ Time Seen by Provider: 06/08/24 19:36 Source: patient Mode of arrival: ambulatory Limitations: no limitations History of Present Illness ED Provider: TAIWO ROJAS PA-C HPI Narrative: 39 year old male with pmhx significant for GERD, hetpaic steatosis, MDD, asthme presents to the ED today for evaluation of congestion, cough, myalgias, and decreased hearing in left ear x1 week. denies fever, ear pain, discharge from the ear. denies trauma/injury to ear. Reports testing positive for covid 1 week ago. Related Data Previous Rx's ?Medication ?Instructions ?Recorded albuterol sulfate 90 mcg/actuation 2 puff inhalation Q6H PRN 08/07/23 aerosol inhaler shortness of breath or wheezing #8.5 grams omeprazole 20 mg capsule,delayed 20 mg PO DAILY #30 caps 10/06/23 release ibuprofen 600 mg tablet 600 mg PO Q8H PRN pain #30 tabs 03/03/24 tadalafil 5 mg tablet (Cialis) 5 mg PO DAILY #30 tabs 05/10/24 Allergies Allergy/AdvReac Type Severity Reaction Status Date / Time No Known Allergies Allergy Verified 06/09/24 08:21 [No Known Allergies*] Review of Systems Review of Systems: Constitutional: No fever, chills, fatigue, night sweats, weight changes ENT/Mouth: No ear pain, hearing loss, sinus pain, rhinorrhea, sore throat, +decreased hearing, +congestion Eyes: No eye pain, swelling, redness, vision changes, discharge Cardio: No chest pain, palpitations, ALDANA, orthopnea, peripheral edema Pulm: No SOB, cough, sputum, wheezing, dyspnea, hemoptysis GI: No nausea, vomiting, hematemesis, abdominal pain, diarrhea, constipation, hematochezia, melena : No irregular bleeding, dysuria, frequency, urgency, hesitancy, hematuria, flank pain, urinary flow changes, urinary incontinence or retention MSK: No back pain, neck pain, joint pain, +myalgias Skin: No lesions, rashes Neuro: No weakness, numbness, paresthesias, LOC, dizziness, headache Psych: No anxiety/panic, depression, SI/HI, AH/VH All other systems reviewed and are negative. COUNTS INCLUDE 234 BEDS AT THE [facility] Past Medical History Attestation statement: The following information was validated with the patient. Source: old records reviewed and nursing notes reviewed Medical History History of abdominal abscess Irritable bowel syndrome with constipation Erectile dysfunction Lumbar disc herniation with radiculopathy Inattention Difficulty concentrating Recurrent mild major depressive disorder with anxiety Lumbago Irritable bowel syndrome with constipation and diarrhea Mild intermittent asthma Surgical History S/P left inguinal herniorrhaphy History of surgery No pertinent past surgical history Family History Family History Father Depression Mental health disorder Mother Breast cancer Polycystic kidney disease Maternal Grandmother Stomach cancer Maternal Grandfather Bone cancer Brother No problems noted. Brother No problems noted. Brother No problems noted. Paternal Uncle Substance use disorder Paternal Aunt Substance use disorder Social History Social History Housing: Apartment Alcohol intake: never Comment: COUNTS CORRECT Patient Tobacco Use Status: Never used Tobacco e-Cigarette/Vaping Use: Never Used service: No Current occupational status: employed Cognitive needs: No Hearing needs: No Vision needs: Yes Physical Exam Vital Signs: Vital Signs: Last Vital Signs Temp 98.0 F 06/08/24 21:18 Pulse 78 06/08/24 21:18 Resp 15 06/08/24 21:18 BP 126/94 H 06/08/24 21:18 Pulse Ox 98 06/08/24 21:18 O2 Del Method Room Air 06/08/24 21:18 BMI result Body Mass Index 25.8 vitals stable General: Well appearing, in no acute distress. Skin: Warm, dry, intact. No rashes or lesions. Head: Normocephalic, atraumatic. EENT: Conjunctiva clear. Sclera is anicteric. PERRLA. EOM intact. Moist mucous membranes.?cerumen impaction b/l ears w/ decreased hearing to left ear Neck: Supple without LAD Cardiac: Chest wall symmetric. RRR. No MRG. No JVD. Lungs: Normal respiratory effort without accessory muscle use. CTA bilaterally Abdomen: Soft, non-tender, non-distended Ext: Upper and lower extremities atraumatic, without tenderness, deformity, swelling or erythema Neuro: AOx3. Normal speech. NV intact distally. Ambulating with steady gait. Psych: Appropriate mood and affect. Responds appropriately to questions. Course Course Course Narrative: This is a Rapid Medical Examination (RME) performed by Jeovany Lomeli PA-C in triage. Full HPI, ROS, assessment and treatment plan per primary provider in the Main ED. 39 yo male presents to the ER for evaluation of cough, body aches, left ear pain/hearing loss who has been sick with COVID for the last 1 week. advised to come to the ER by his insurance company for evaluation as he keeps testing positive at home and continues to be sick. left ear with cerumen impaction, unable to visualize TM. Plan: cerumen impaction Reevaluation(s) Reevaluation #1: 0913 -- cerumen disimpaction of b/l ears attempted using colace and irritation without success. i was able to partially disimpact each EAC manually w/ curette however the cerumen appears attached to the TM. to avoid damaging the TM, will refer patient to ENT for removal. he is agreeable with this. no findings suggestive of otitis externa or otitis media from the area of TM i can visualize. > he has tested positive for covid. > Patient has remained stable throughout ED visit today. Discussed worrisome signs and symptoms and when to return to the ED. All questions answered at this time. Patient is agreeable with disposition and stable for discharge. Medications Administered Discontinued Medications Generic Name Dose Route Start Last Admin Trade Name Freq PRN Reason Stop Dose Admin Docusate Sodium 100 mg 06/08/24 19:37 06/08/24 19:53 Docusate Sodium 100 Mg/10 Ml Liquid PO 06/08/24 19:38 100 mg ONCE ONE Administration Medical Decision Making Medical Decision Making MDM Narrative: 39 year old male with pmhx significant for GERD, hetpaic steatosis, MDD, asthme presents to the ED today for evaluation of congestion, cough, myalgias, and decreased hearing in left ear x1 week. vss. there is cerumen impaction to bilateral EACs. exam otherwise benign. differential diagnosis includes otitis media, otitis externa, covid, cerumen impaction' paln for covid testing and cerumen disimpaction. Differential Diagnosis Differential Diagnoses: The differential diagnosis associated with the presentation includes as above. Admission/Observation not indicated Lab Data MDM Lab Attestation statement: I reviewed the patient's lab results. as above. Labs: Lab Results 06/08/24 Range/Units 20:53 COVID-19 (LAUREN) Positive A (Negative) COVID-19 Clin Com See Note Discharge Plan Discharge Clinical Impression: Cerumen impaction, COVID-19 Patient Disposition: Home, Self-Care Instructions: COVID-19 (Coronavirus Disease 2019) (ED) Additional Instructions: You were evaluated in the ED today with decreased hearing in your left ear. You are noted to have impacted cerumen in both ears, left more than right. Disimpaction was attempted with partial removal. Please follow up with ENT. Referral provided. Return with new or worsening symptoms. In the case of an emergency call 911. Prescriptions: No Action albuterol sulfate 90 mcg/actuation HFA aerosol inhaler 2 puff inhalation Q6H PRN (Reason: shortness of breath or wheezing) Qty: 8.5 0RF ibuprofen 600 mg tablet 600 mg PO Q8H PRN (Reason: pain) Qty: 30 0RF omeprazole 20 mg capsule,delayed release(DR/EC) 20 mg PO DAILY Qty: 30 6RF tadalafil [Cialis] 5 mg tablet 5 mg PO DAILY Qty: 30 7RF Rx Instructions: [id number] [facility] [id number] Member [id number] Referrals: Karen Abdi MD [Primary Care Provider] - Shon Self [Physician] - (b/l cerumen impaction) Stand Alone Forms: Work/School Release Discharge Date/Time: 06/08/24 21:45 Print Language: Icelandic
[2024-06-08] MEDS: Docusate Sodium 100 MG/10 ML LIQUID PO (19:53)
[2024-06-08 21:15] LABS: COVID-19 Test Positive (Negative); IDNOW Serial# 08D9AD1C
[2024-06-08 21:18] VITALS: BP 126/94; PULSE 78; RESP 15; TEMP 36.7; O2SAT 98
== END 2024-06-08 21:45 | disposition home or self-care (01) ==
PROVIDERS: Physician Assistant Medical; Emergency Provider Emergency Medicine; PCP Internal Medicine
DX: U07.1 COVID-19 (principal); H61.23 Impacted cerumen, bilateral
CPT/HCPCS: 69210; 87635; 99282; 99283

== ENCOUNTER 2024-06-09 08:11 | Outpatient (AMB) | payer OTHER, SELFPAY ==
[2024-06-09 08:18] VITALS: BP 114/80; PULSE 77; TEMP 36.9; O2SAT 98; BMI 25.4
--- NOTE | 2024-06-09 08:18 | MHC.OFFWIV ---
Intake Vital Signs 06/09/24 08:18 Height 5 ft 10 in Weight 177 lb BMI 25.4 BP 114/80 Blood Pressure Location Rt brachial Position Sitting Pulse 77 Pulse Source Pulse Oximeter Temp 98.4 F Temp Source Oral Pulse Oximetry (%) 98 Oxygen Delivery Method Room Air Intake Visit Reasons: EP Covid symptoms still +, work note. Intake Note: pt c/o Covid +, needs FMLA forms completed Patient Tobacco Use Status: Never used Tobacco Allergies No Known Allergies [No Known Allergies*] Allergy (Verified 06/09/24 08:21) Do you need a note to return to daycare/school/sports/work: Yes HPI HPI Comments History of Present Illness Details 39 y/o male patient who presents to the walk in clinic asking for FMLA forms signed. He tested positive for COVID for 1 week now. His work requires him to have FMLA forms signed. [facility] Medical History History of abdominal abscess Irritable bowel syndrome with constipation Erectile dysfunction Lumbar disc herniation with radiculopathy Inattention Difficulty concentrating Recurrent mild major depressive disorder with anxiety Lumbago Irritable bowel syndrome with constipation and diarrhea Mild intermittent asthma Surgical History S/P left inguinal herniorrhaphy History of surgery No pertinent past surgical history Family History Father Depression Mental health disorder Mother Breast cancer Polycystic kidney disease Maternal Grandmother Stomach cancer Maternal Grandfather Bone cancer Brother No problems noted. Brother No problems noted. Brother No problems noted. Paternal Uncle Substance use disorder Paternal Aunt Substance use disorder Social History Housing: Apartment Alcohol intake: never Comment: COUNTS CORRECT Patient Tobacco Use Status: Never used Tobacco e-Cigarette/Vaping Use: Never Used service: No Current occupational status: employed Cognitive needs: No Hearing needs: No Vision needs: Yes Review of Systems Const All systems reviewed & are unremarkable except as noted in HPI and below Physical Exam Vital Signs: Last Vital Signs Temp 98.4 F 06/09/24 08:18 Pulse 77 06/09/24 08:18 BP 114/80 06/09/24 08:18 Pulse Ox 98 06/09/24 08:18 Oxygen Delivery Method Room Air 06/09/24 08:18 BMI result Body Mass Index 25.4 Const General: cooperative and no acute distress Orientation/consciousness: patient oriented x3 Resp Effort & Inspection: normal respiratory effort and able to speak in complete sentences Auscultation: clear to auscultation bilaterally Cardio Heart sounds: S1 normal heart sound present and S2 normal heart sound present Neuro General: patient oriented x3 Assessment & Plan Assessment & Plan (1) COVID-19: Code(s): U07.1 - COVID-19 Plan: Will sign the FMLA forms and have Pt pick them up when completed. Coding Level of Care Code Est Pt Level 3 (73737) Diagnoses COVID-19 U07.1 Time Spent (min) 15
== END 2024-06-09 08:54 | disposition home or self-care (01) ==
PROVIDERS: PCP Internal Medicine; Visit Provider Nurse Practitioner Family
DX: U07.1 COVID-19 (principal)

== ENCOUNTER → 2024-06-09 08:11 | Outpatient (BNVA) | payer OTHER, SELFPAY | PROVIDERS: PCP Internal Medicine | DX: U07.1 COVID-19 (principal) | CPT/HCPCS: 99212 ==

== ENCOUNTER 2024-07-06 09:17 | Outpatient (AMB) | payer OTHER, SELFPAY ==
--- NOTE | 2024-07-06 09:43 | MHC.PC.OV ---
Vital Signs 07/06/24 09:44 Height 5 ft 10 in Weight 184 lb 8 oz BMI 26.5 BP 126/80 Blood Pressure Location Lt brachial Position Sitting Pulse 77 Pulse Source Pulse Oximeter Pulse Oximetry (%) 98 Oxygen Delivery Method Room Air Intake Visit Reasons: Post-covid follow up Intake Note: Patient is here to follow up on post-covid. Sonography Technician Required: No Boiler House Inspector: Not Required per policy Accompanied by: Self / Same As Patient Allergies No Known Allergies [No Known Allergies*] Allergy (Verified 07/06/24 10:29) Medication List - Last Reconciled 07/06/24 by aKren Abdi MD albuterol sulfate 90 mcg/actuation 2 puffs inhalation Q6H PRN ibuprofen 600 mg PO Q8H PRN omeprazole 20 mg PO DAILY tadalafil (Cialis) 5 mg PO DAILY Tobacco use date assessed: 07/06/24 Dental Screening Dental Screen Date: 04/20/24 HPI Post-covid follow up HPI Details 39-year-old male with history mild intermittent asthma, recently had COVID infection 06/08/2024, here today for follow-up. Patient states that he has been a febrile, feels better, but still having some episodes of chest congestion and wheezing especially on moderate exertion. Denies any loss of taste, no alteration in bowel movements. Denies shortness of breath, or chest pain. He however has been using his albuterol inhaler more than usual at least 2 to 3 times a week as needed for episodes of bronchospasm PFSH Medical History (Updated 07/06/24 @ 10:36 by Karen Abdi MD) History of COVID-19 History of abdominal abscess Irritable bowel syndrome with constipation Erectile dysfunction Lumbar disc herniation with radiculopathy Inattention Difficulty concentrating Recurrent mild major depressive disorder with anxiety Lumbago Irritable bowel syndrome with constipation and diarrhea Mild intermittent asthma Surgical History S/P left inguinal herniorrhaphy History of surgery No pertinent past surgical history Family History Father Depression Mental health disorder Mother Breast cancer Polycystic kidney disease Maternal Grandmother Stomach cancer Maternal Grandfather Bone cancer Brother No problems noted. Brother No problems noted. Brother No problems noted. Paternal Uncle Substance use disorder Paternal Aunt Substance use disorder Social History Housing: Apartment Alcohol intake: never Comment: COUNTS CORRECT Patient Tobacco Use Status: Never used Tobacco e-Cigarette/Vaping Use: Never Used Second Hand Smoke Exposure: No service: No Current occupational status: employed Cognitive needs: No Hearing needs: No Vision needs: Yes Questionnaire Thrive Questionnaire Date Thrive assessed: 04/20/24 I am a: Patient What is your living situation today?: I have a steady place to live Within the past 12 months, did the food you bought not last and you didn't have the money to get more?: Never true Within the past 12 months, did you worry whether your food would run out before you got money to buy more?: Never true Do you have trouble paying for medicines?: No Do you have trouble getting transportation to medical appointments?: No Do you have trouble paying your heating and electricity bill?: No Do you have trouble taking care of your child, family member or friend?: No Do you have trouble with day-to-day activities such as bathing, preparing meals, shopping, managing finances, etc.?: No Are you currently unemployed and looking for a job?: No Are you interested in more education?: Yes Currently or been in a relationship where the following occur: No concerns reported THRIVE Score: 0 KINGSLEY-7 AMB Questionnaire KINGSLEY-7 Date KINGSLEY - 7 assessed: 04/20/24 Source: Developed by Drs. Jeremie Medina, Jeannine Mc, Ravi Rock and colleagues, with an educational gal from [employer]. Review of Systems Const All systems reviewed & are unremarkable except as noted in HPI and below ENT Reports Normal hearing present Neuro Reports Normal hearing present and Denies Abnormal speech present Physical exam (Primary Care) Vital Signs: Last Vital Signs Pulse 77 07/06/24 09:44 BP 126/80 07/06/24 09:44 Pulse Ox 98 07/06/24 09:44 Oxygen Delivery Method Room Air 07/06/24 09:44 BMI result Body Mass Index 26.5 Tobacco/Smoking Status: Tobacco use Status Tobacco use date assessed 07/06/24 07/06/24 10:08 Patient Tobacco Use Status Never used Tobacco 07/06/24 10:08 e-Cigarette/Vaping Use Never Used 07/06/24 10:08 Thrive Assessment: Date of Thrive Assessment Date Thrive assessed 04/20/24 07/06/24 10:08 Currently or been in a relationship where the following occur: No concerns reported Const General: no acute distress and alert Nutritional Appearance: average body habitus Orientation/consciousness: patient oriented x3 HENMT Head: Yes normocephalic Ears: hearing grossly normal bilaterally and Abnormal EAC present excessive cerumen bilateral General nose exam: Normal external nose present Face and sinus: Yes face symmetric Mouth: Normal oral and palatal mucosa present, oropharynx normal and moist mucous membranes Eyes General: appearance normal, both eyes and all related structures Neck Neck: Yes full ROM, Yes no lymphadenopathy and Yes supple Resp Auscultation: clear to auscultation bilaterally Cardio Rate: regular rate Rhythm: regular rhythm Heart sounds: S1 normal heart sound present and S2 normal heart sound present GI Inspection: Yes normal to inspection Palpation (GI): Soft to palpation, nontender, no guarding and no masses Skin General skin exam: no rashes or lesions noted Neuro General: patient oriented x3, gait normal, tone normal, Normal light touch and pain sensation, no focal motor deficits and CN's II-XI intact bilaterally Cranial nerves: Yes Normal hearing present Cognition (Neuro): normal cognition Speech: No Abnormal speech present Gait exam (Neuro): Normal gait present Motor exam (neuro): 5/5 motor strength present throughout Extrem General: Yes full ROM, Yes no joint enlargement, Yes no clubbing, cyanosis or edema, Yes no calf tenderness and Yes normal gait Office Procedures Flu Questionnaire Does the patient have a severe egg allergy?: No Does the patient have severe life threatening allergies?: No Does the patient have a fever or illness today?: No Has the patient ever had Guillain-Sat[place] Syndrome?: No Has the patient ever had any past reaction to a flu shot?: No Immunizations Fluarix Triv [id number] (PF) 45 mcg (15 mcg x 3)/0.5 mL IM syringe Performing Provider: Karen Abdi MD Performing Location: [facility] Administered by: Amando Leslie CMA on 07/06/24 10:31 Dose Route Admin Location Dispensed Lot Number Expiration Date NDC Rn Call Center 0.5 mL IM Left Deltoid 0.5 mL [id number] 03/19/25 [id number] [employer] VIS Given Date VIS Provided VIS Publication Date 07/06/24 Single Vaccine 21 Eligibility Eligibility Date Funding Source Not VF Eligible 07/06/24 Private Coding Level of Care Code Est Pt Level 3 (65243) Diagnoses Mild intermittent asthma without complication J45.20 Asthma complication type: uncomplicated Assessment & Plan Assessment & Plan (1) Mild intermittent asthma: Code(s): J45.20 - Mild intermittent asthma, uncomplicated Category: Medical Qualifiers: Asthma complication type: uncomplicated Qualified Code(s): J45.20 - Mild intermittent asthma, uncomplicated Plan: Continue use of albuterol inhaler, as needed for episodes of bronchospasm and wheezing. Advised to use it with a spacer, prescription sent Flu vaccine given today Orders: Orders Influenza [id number] Immunization 07/06/24 Z23 - Encounter for immunization Medications: New inhalational spacing device (BreatheRite MDI Spacer) As directed 1 ea 2RF J45.20 - Mild intermittent asthma, uncomplicated, Z86.16 - Personal history of COVID-19 Refilled albuterol sulfate 90 mcg/actuation 2 puffs inhalation Q6H PRN 8.5 grams 0RF shortness of breath or wheezing
[2024-07-06 09:44] VITALS: BP 126/80; PULSE 77; O2SAT 98; BMI 26.5
== END 2024-07-06 12:29 | disposition home or self-care (01) ==
PROVIDERS: PCP Internal Medicine; Visit Provider Internal Medicine
DX: J45.20 Mild intermittent asthma, uncomplicated (principal)

== ENCOUNTER → 2024-07-06 09:17 | Outpatient (BNVA) | payer OTHER, SELFPAY | PROVIDERS: PCP Internal Medicine; Visit Provider Internal Medicine | DX: J45.20 Mild intermittent asthma, uncomplicated (principal); Z23 Encounter for immunization | CPT/HCPCS: 90471; 90656; 99212 ==

== ENCOUNTER 2024-07-12 15:06 | Outpatient (AMB) | payer OTHER, SELFPAY ==
--- NOTE | 2024-07-12 15:03 | MHC.OFFVIS ---
Intake Visit Reasons: 2m follow up Intake Note: Patient is present for 2m f/u Urology Medication:tadalafil Antibiotic Allergy:none Blood Thinner:none Health Care Analyst Required: No Allergies No Known Allergies [No Known Allergies*] Allergy (Verified 07/12/24 15:04) Medication List - Last Reconciled 07/12/24 by Manas Ramos MD albuterol sulfate 90 mcg/actuation 2 puffs inhalation Q6H PRN ibuprofen 600 mg PO Q8H PRN inhalational spacing device (BreatheRite MDI Spacer) As directed omeprazole 20 mg PO DAILY tadalafil (Cialis) 5 mg PO DAILY HPI Comments Details: 07/12/24-- Reviewed lab results, Testosterone level - is normal 836. PSA 0.80. Will cont daily Cialis. Review of chart: 05/10/24--Delano is here for DATE NIGHT SITTER evaluation testicular pain, varicoceles. Pt complains of ED. Testicular pain minimal. Reviewed scrotal US: B/L varicoceles- L>R. Discussed trial of cialis. Will check labs testosterone, PSA. [facility] Medical History (Updated 07/12/24 @ 23:02 by Manas Ramos MD) History of COVID-19 History of abdominal abscess Irritable bowel syndrome with constipation Erectile dysfunction Lumbar disc herniation with radiculopathy Inattention Difficulty concentrating Recurrent mild major depressive disorder with anxiety Lumbago Irritable bowel syndrome with constipation and diarrhea Mild intermittent asthma Surgical History S/P left inguinal herniorrhaphy History of surgery No pertinent past surgical history Family History Father Depression Mental health disorder Mother Breast cancer Polycystic kidney disease Maternal Grandmother Stomach cancer Maternal Grandfather Bone cancer Brother No problems noted. Brother No problems noted. Brother No problems noted. Paternal Uncle Substance use disorder Paternal Aunt Substance use disorder Social History Housing: Apartment Alcohol intake: never Comment: COUNTS CORRECT Patient Tobacco Use Status: Never used Tobacco e-Cigarette/Vaping Use: Never Used Second Hand Smoke Exposure: No service: No Current occupational status: employed Cognitive needs: No Hearing needs: No Vision needs: Yes Telehealth Telehealth Telehealth Platform: [employer] Location of provider rendering services: practice address Location of patient: address on file Patient Identification confirmed using: Name, : Yes Telehealth method: video Patient verbally consented to treatment: Yes Patient verbally consented to billing insurance company: Yes Patient informed of any privacy concerns related to visit: Yes Results Reviewed Results Reviewed: Date of Service: 03/13/24 EXAMINATION: US SCROTUM CLINICAL INFORMATION: Left testicular pain. COMPARISON: None available. TECHNIQUE: A sonogram of the scrotum was performed assessing newton-scale appearance and color Doppler flow. Spectral Doppler analysis of the arterial and venous flow were performed in the testes bilaterally. FINDINGS: RIGHT: Right testicle measures 4.7 x 2.0 x 3.2 cm, volume 15.7 mL. No focal testicular parenchymal lesions are visualized. Spectral Doppler analysis of the arterial and venous flow is normal in the right testis. Right epididymal head is there is a right epididymal head cyst at 5 x 4 mm. No right hydrocele is seen. Right epididymal Doppler flow is normal. Small right varicocele. LEFT: Left testicle measures 4.2 x 2.0 x 3.1 cm, volume 13.4 mL. No focal testicular parenchymal lesions are visualized. Spectral Doppler analysis of the arterial and venous flow is normal in the left testis. Left epididymal head is normal in size. No left hydrocele is seen. Left epididymal Doppler flow is normal. Moderate left varicocele. IMPRESSION: Bilateral varicoceles. Testes intrinsically normal. CT of the abdomen with and without IV contrast 10/25/23 FINDINGS: LUNG BASES: The visualized lung bases are unremarkable. LIVER, GALLBLADDER, AND BILIARY TREE: The liver is normal in size and contour. Tiny hepatic hypodensity too small to characterize. The common duct measures 6 mm at the lola hepatis. No intrahepatic biliary ductal dilatation.. The gallbladder is unremarkable with no evidence of radiopaque gallstones, gallbladder wall thickening, or obvious pericholecystic inflammatory changes. PANCREAS: No ductal dilatation. SPLEEN: Not enlarged. ADRENAL GLANDS: No adrenal mass. KIDNEYS AND URETERS: The kidneys are normal in size, shape, and attenuation. No renal or ureteral calculus. No hydronephrosis or perinephric stranding. BLADDER: Circumferential wall thickening. GASTROINTESTINAL TRACT: Small and large bowel loops are of normal caliber. No small bowel obstruction. Marked stool throughout the colon. ABDOMINAL WALL: Small fat-containing left inguinal hernia. LYMPH NODES: No bulky lymphadenopathy. VASCULAR: Normal caliber abdominal aorta. PELVIC VISCERA: Heterogeneous appearance of the prostate gland with hypoattenuating foci. OSSEOUS STRUCTURES: No destructive bone lesions. IMPRESSION: Heterogeneous appearance of the prostate gland with hypoattenuating foci. Circumferential bladder wall thickening. Advise clinical correlation for infection. Mild dilatation of the common duct at the lola hepatis without intrahepatic biliary ductal dilatation or dilatation of the main pancreatic duct. The appearance is unchanged relative to the 08/13/2018 examination. Assessment & Plan Assessment & Plan (1) Screening PSA (prostate specific antigen): Code(s): Z12.5 - Encounter for screening for malignant neoplasm of prostate Category: Medical (2) Erectile dysfunction: Code(s): N52.9 - Male erectile dysfunction, unspecified Category: Medical Qualifiers: Erectile dysfunction type: unspecified Qualified Code(s): N52.9 - Male erectile dysfunction, unspecified (3) Testicular pain: Code(s): N50.819 - Testicular pain, unspecified Category: Medical Plan Daily Cialis, FU one year Medications: Refilled tadalafil (Cialis) [id number] [facility] [id number] Member [id number] 5 mg PO DAILY 30 tabs 7RF Patient Instructions: The patient had an opportunity to ask questions regarding treatment plan. The patient expressed understanding and agreement with the above treatment plan. The patient is aware they should contact our office by phone for worsening of their current condition or the appearance of new symptoms. Compliance is encouraged with any medications and followup testing that is ordered. It is a privilege to be allowed the opportunity to participate in the urologic care of your patient. If you have any questions or concerns regarding treatment for the above conditions please do not hesitate to contact me. The office telephone contact is [phone]. This note is constructed in part using voice recognition software. While every effort has been made to ensure accuracy seismograph recorder errors may have been included. Yours sincerely, Manas Ramos MD Coding Level of Care Code Tele Est Pt Level 3 (46360) Diagnoses Screening PSA (prostate specific antigen) Z12.5 Erectile dysfunction, unspecified erectile dysfunction type N52.9 Erectile dysfunction type: unspecified Testicular pain N50.819
== END 2024-07-12 16:31 | disposition home or self-care (01) ==
LOC: HO.HUSH 15:06
PROVIDERS: PCP Internal Medicine; Visit Provider Urology
DX: N50.819 Testicular pain, unspecified (principal); N52.9 Male erectile dysfunction, unspecified
CPT/HCPCS: 99213

== ENCOUNTER → 2024-07-12 15:06 | Outpatient (BNVA) | payer OTHER, SELFPAY | PROVIDERS: PCP Internal Medicine; Visit Provider Urology ==

== ENCOUNTER 2024-10-14 07:23 | Emergency (ER) | payer OTHER, SELFPAY ==
--- NOTE | ~2024-10-14 | CT_ITS ---
CLINICAL HISTORY: lower abd pain, rectal pain CT abdomen and pelvis with contrast Comparison: 10/22/2023 Findings: The lung bases are clear. Distended gallbladder. Small proximal pancreatic lipoma. Too small to characterize right hepatic hypodense lesion. Borderline splenomegaly. New irregular simple appearing fluid pocket (without definite rim enhancement) versus less likely abscess, measuring 12 x 34 mm in the left anterior aspect of the pelvis deep to the inguinal canal (with extension to the opposing aspect of the colon; No evidence of neighboring colonic wall thickening) is of indeterminate significance. There is neighboring mild fat stranding. Normal appendix. Nonprogressive mild circumferential urinary bladder wall thickening as well as small urinary bladder diverticulum. No evidence of prostate enlargement (prostate measures 38 mm in width). Correlate clinically for possible neurogenic bladder. Mildly coarse osseous trabeculations also present on prior exam. 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 Rest of the abdominopelvic viscera are unremarkable. IMPRESSION: 1. Nonprogressive mild circumferential urinary bladder wall thickening as well as small urinary bladder diverticulum. No evidence of prostate enlargement (prostate measures 38 mm in width). Correlate clinically for possible neurogenic bladder. 2. New irregular simple appearing fluid pocket (without definite rim enhancement) versus less likely abscess, measuring 12 x 34 mm in the left anterior aspect of the pelvis deep to the inguinal canal (with extension to the opposing aspect of the colon; No evidence of neighboring colonic wall thickening or colonic diverticulosis suggest associated colitis) is of indeterminate significance. There is neighboring mild fat stranding. Correlate clinically for focal tenderness. This document has been electronically signed by: Marlen Deal MD on 10/14/2024 10:14:22
[2024-10-14 07:25] VITALS: BP 126/84; PULSE 80; RESP 18; TEMP 36.6; O2SAT 100; BMI 27.2
[2024-10-14 07:46] LABS: MANUAL DIFF FLAG NO
[2024-10-14 07:47] LABS: Eosinophils Absolute Auto 0.1 X10*3/uL (0.0-0.4); Eosinophils Percent Auto 3.5 % (0-4); Hemoglobin 15.3 g/dl (14.0-18.0); Lymphocytes Absolute Auto 0.8 X10*3/uL (1.2-4.9); Lymphocytes Percent Auto 25.4 % (20-40); Mean Corpuscular HGB Conc 34.8 g/dl (31.0-36.0); Mean Corpuscular Hemoglobin 29.3 pg (27.0-33.0); Mean Corpuscular Volume 84.1 fL (80.0-98.0); Mean Platelet Volume 10.2 fL (9.4-12.4); Monocytes Absolute Auto 0.3 X10*3/uL (0.1-1.2); Monocytes Percent Auto 8.9 % (2-11); Neutrophils Absolute Auto 1.9 x10*3/uL (2.0-8.3); Neutrophils Percent Auto 61.2 % (45-73); Platelet Count 226 X10*3/uL (160-400); Red Blood Count 5.23 X10*6/uL (4.60-5.80); Red Cell Distribution Width 12.3 % (11.0-16.0); White Blood Count 3.2 X10*3/uL (4.8-10.8)
[2024-10-14 07:49] LABS: Appearance Urine Clear; Color Urine Yellow; Glucose Urine UA Negative (Negative); Leukocyte Esterase Urine Negative (Negative); Nitrite Urine Negative (Negative); Urine Blood Negative (Negative); Urine Ketones Negative (Negative); Urine Protein Negative (Neg-Trace)
--- NOTE | 2024-10-14 07:59 | PC.NURSE ---
Pt comes to ED today from home with c/o rectal itch/pain with noted discoloration x5-6 months. Pt reports post BM he will wash his rectum with bar soap and paper towels in an effort to be hygienic. Pt reports pain is 4/10 and intermittent; itching is more persistent. A&Ox3, VSS, afebrile. Pt denies changes to bowel patterns and no issues with BMs. Pt also reports new use of Tadalafil 5-6 mo ago. Labs completed in triage. Awaiting ED provider/new orders.
[2024-10-14 08:07] LABS: Alanine Aminotransferase 67 U/L (0-40); Albumin Level 4.6 g/dL (3.5-5.0); Alkaline Phosphatase 59 U/L (39-117); Anion Gap 11 (12-20); Aspartate Amino Transferase 45 U/L (5-37); Bilirubin Direct 0.3 mg/dL (0.0-0.5); Bilirubin Total 0.7 mg/dL (0.0-1.0); Blood Urea Nitrogen 19 mg/dL (9-16); Calcium 9.7 mg/dL (8.4-10.2); Carbon Dioxide 25 mmol/L (22-29); Chloride 106 mmol/L (96-108); Creatinine Clr Calc Pharmacy 117.5; Estimated Glomerular Filt Rate > 60; Glucose Random 97 mg/dL (60-115); Lipase 20 U/L (8-78); Sodium 138 mmol/L (135-145); Total Protein 7.7 g/dL (6.5-8.0)
[2024-10-14 08:13] LABS: C Reactive Protein 0.13 mg/dL (< or = 0.50)
--- NOTE | 2024-10-14 08:26 | ED_ITS ---
HPI - Abdominal Pain General Chief Complaint: Abdominal Pain Stated Complaint: itch in rectal area Time Seen by Provider: 10/14/24 07:52 Source: patient Mode of arrival: ambulatory Limitations: no limitations History of Present Illness ED Provider: ANN HPI narrative: 39 yo male with hx of asthma, depression who denies hx of infl bowel disease or fam hx of bowel disease. He does note for 5 to 6 months some lower abdominal pain no prior colonoscopy, no fevers, weight loss. He does not have bloody stools. He reports no night sweats either. He also notes he generally cleans himself really well after he has a BM which includes wiping and soap and water. He notes he now feels itchiness in his rectal area. He denies any anal penetration. MD elicited complaint: abdominal pain (rectal itching) Pertinent past history: none Onset (ago): month(s) (5) Pain Consistency: intermittent Location: suprapubic Severity: mild Quality: aching Radiation: none Migration to: no migration Exacerbating factors: other Relieving factors: nothing Context: history of similar episodes Associated symptoms: denies other symptoms Related Data Previous Rx's ?Medication ?Instructions ?Recorded ibuprofen 600 mg tablet 600 mg PO Q8H PRN pain #30 tabs 03/03/24 albuterol sulfate 90 mcg/actuation 2 puff inhalation Q6H PRN 07/06/24 aerosol inhaler shortness of breath or wheezing #8.5 grams inhalational spacing device #1 ea 07/06/24 (BreatheRite MDI Spacer) tadalafil 5 mg tablet (Cialis) 5 mg PO DAILY #30 tabs 07/12/24 omeprazole 20 mg capsule,delayed 20 mg PO DAILY #30 caps 08/03/24 release hydrocortisone 2.5 % topical cream 1 appl topical BID PRN itching 10/14/24 #28.35 grams Allergies Allergy/AdvReac Type Severity Reaction Status Date / Time No Known Allergies Allergy Verified 10/14/24 07:29 [No Known Allergies*] Review of Systems Review of Systems Constitutional : No Weight loss, No Fever, No Chills ENT/Mouth : No sore throat, No Rhinorrhea Eyes: No Swelling, No Redness Cardiovascular : No Chest Pain, No SOB, NoEdema Respiratory : No Cough, No Sputum, No Wheezing Gastrointestinal : no Nausea, no Vomiting, no Diarrhea, positive abdominal Pain, No Hematochezia, No Melena Genitourinary : No Dysuria, No Urinary Frequency, No Hematuria, No Urgency Musculoskeletal : No joint pain, No Myalgias, No Joint Swelling Skin : No Skin Lesions, No rash Neuro : No Weakness, No Numbness, No Dizziness, No Headache All other systems reviewed and are negative. [facility] Past Medical History Attestation statement: The following information was validated with the patient. Source: old records reviewed Medical History History of COVID-19 History of abdominal abscess Irritable bowel syndrome with constipation Erectile dysfunction Lumbar disc herniation with radiculopathy Inattention Difficulty concentrating Recurrent mild major depressive disorder with anxiety Lumbago Irritable bowel syndrome with constipation and diarrhea Mild intermittent asthma Surgical History S/P left inguinal herniorrhaphy History of surgery No pertinent past surgical history Family History Family History Father Depression Mental health disorder Mother Breast cancer Polycystic kidney disease Maternal Grandmother Stomach cancer Maternal Grandfather Bone cancer Brother No problems noted. Brother No problems noted. Brother No problems noted. Paternal Uncle Substance use disorder Paternal Aunt Substance use disorder Social History Social History Housing: Apartment Alcohol intake: never Comment: COUNTS CORRECT Patient Tobacco Use Status: Never used Tobacco Smoked in Last 30 Days: No e-Cigarette/Vaping Use: Never Used Second Hand Smoke Exposure: No Use of substances other than those prescribed or required for medical reasons: No Advance Directives: No Advance Directives Information Provided: Yes Do you have a plan to hurt others: No Plan service: No Current occupational status: employed Cognitive needs: No Hearing needs: No Vision needs: Yes Physical Exam ED Vital Signs: Vital Signs - 24 hr 10/14/24 07:25 Temperature 97.8 F Pulse Rate 80 Respiratory Rate 18 Blood Pressure 126/84 Pulse Oximetry 100 Oxygen Delivery Method Room Air BMI result Body Mass Index 27.2 Appearance: Alert. Oriented X3. No acute distress. Eyes: Pupils equal, round and reactive to light. ENT: Pharynx normal. Neck: Normal inspection. Neck supple. CVS: Normal heart rate and rhythm. Pulses normal. Respiratory: No respiratory distress. Breath sounds normal. Abdomen: Soft and non-tender. Rectal exam: normal mucosa no redness, no pain, no mass, there is areas that appear to have patches of loss of hair as if from aggressive wiping Skin: Skin warm and dry. Normal skin color. Normal skin turgor. Extremities: No lower extremity edema. Neuro: Oriented X 3. No motor deficit. No sensory deficit. CN2-12 intact Medical Decision Making Medical Decision Making [facility] Narrative: 39 yo male with PMH of asthma, depression here with 5+ months of lower abdominal pain and rectal itching but no fevers, weight loss, bloody stools. He has no fam hx of IBD/IBS. He notes he does over clean the area after defecation, he does not have any anal penetration on exam there is no signs of redness/infection. Will obtain basic labs and CT scan for IBS/mass. Differential Diagnosis Differential Diagnoses: The differential diagnosis associated with the presentation includes overcleaning, IBD, IBS, mass Admission/Observation Consideration of admission/observation: Escalation of care including admission/observation considered normal labs nothing on CT scan Consult Healthcare Provider Management of the patient was discussed with: Manager Of Internal Dr. Cleaning aware of CT scan and labs outpatient colonoscopy and no abx due to no wbc count and neg CRP Lab Data [facility] Lab Attestation statement: I reviewed the patient's lab results. 10/14/24 07:42 10/14/24 07:42 Labs: Lab Results 10/14/24 Range/Units 07:42 WBC 3.2 L (4.8-10.8) X10*3/uL RBC 5.23 (4.60-5.80) X10*6/uL Hgb 15.3 (14.0-18.0) g/dl Hct 44.0 (42.0-52.0) % MCV 84.1 (80.0-98.0) fL MCH 29.3 (27.0-33.0) pg MCHC 34.8 (31.0-36.0) g/dl RDW 12.3 (11.0-16.0) % Plt Count 226 (160-400) X10*3/uL MPV 10.2 (9.4-12.4) fL Immature Gran % (Auto) 0.0 (0.0-0.4) % Neut % (Auto) 61.2 (45-73) % Lymph % (Auto) 25.4 (20-40) % Whitley % (Auto) 8.9 (2-11) % Eos % (Auto) 3.5 (0-4) % Baso % (Auto) 1.0 (0-2) % Lymph # (Auto) 0.8 L (1.2-4.9) X10*3/uL Whitley # (Auto) 0.3 (0.1-1.2) X10*3/uL Eos # (Auto) 0.1 (0.0-0.4) X10*3/uL Baso # (Auto) 0.0 (0.0-0.2) X10*3/uL Abs Immat Gran (auto) 0.00 (0.00-0.03) X10*3/uL Absolute Neuts (auto) 1.9 L (2.0-8.3) x10*3/uL Absolute Nucleated RBC 0.000 (0.0-0.012) X10*3/uL Nucleated RBC % (auto) 0.0 (0.0-0.2) /100WBC ESR 2 (0-15) MM/HR Sodium 138 (135-145) mmol/L Potassium 4.0 (3.3-5.1) mmol/L Chloride 106 (96-108) mmol/L Carbon Dioxide 25 (22-29) mmol/L Anion Gap 11 L (12-20) BUN 19 H (9-16) mg/dL Creatinine 0.88 (0.5-1.4) mg/dL Estim Creat Clear Calc 117.5 Estimated GFR > 60 Random Glucose 97 (60-115) mg/dL Calcium 9.7 D (8.4-10.2) mg/dL Total Bilirubin 0.7 (0.0-1.0) mg/dL Direct Bilirubin 0.3 (0.0-0.5) mg/dL AST 45 H (5-37) U/L ALT 67 H (0-40) U/L Alkaline Phosphatase 59 (39-117) U/L C-Reactive Protein 0.13 (< or = 0.50) mg/dL Total Protein 7.7 (6.5-8.0) g/dL Albumin 4.6 (3.5-5.0) g/dL Lipase 20 (8-78) U/L Urine Color Yellow Urine Appearance Clear Urine pH 7.0 (5.0-9.0) Ur Specific [place] 1.020 (1.005-1.025) Urine Protein Negative (Neg-Trace) mg/dL Urine Glucose (UA) Negative (Negative) mg/dL Urine Ketones Negative (Negative) mg/dL Urine Blood Negative (Negative) Urine Nitrite Negative (Negative) Ur Leukocyte Esterase Negative (Negative) Independent Interpretation I performed an independent interpretation of an: CT Scan (no acute findings other than small fluid collection) Radiology Impression Discussion of test interpretation with radiology: I have reviewed the radiologist's reading. External Record Review External record reviewed: Outpatient record Prescription Management I considered prescription management with: Other Medications Administered Discontinued Medications Generic Name Dose Route Start Last Admin Trade Name Freq PRN Reason Stop Dose Admin Iohexol 100 ml 10/14/24 09:24 10/14/24 09:24 Iohexol 350 Mg/Ml 100 Ml Infus..Btl IV 10/14/24 09:25 85 ml ONCE ONE Administration Discharge Plan Discharge Clinical Impression: Rectal itching Patient Disposition: Home, Self-Care Instructions: Anal Itching (ED) Additional Instructions: avoid excessive cleaning follow up with GI no mass seen there is a small fluid collection but no wbc count, infl markers or signs of infection, you should follow up with GI doctor return for worsening pain fevers vomiting or any other concerns. 2. New irregular simple appearing fluid pocket (without definite rim enhancement, measuring 1.2 x 3.4 cm in the left anterior aspect of the pelvis deep to the inguinal canal (with extension to the opposing aspect of the colon; No evidence of neighboring colonic wall thickening or colonic diverticulosis suggest associated colitis) is of indeterminate significance. There is neighboring mild fat stranding. Correlate clinically for focal tenderness. Prescriptions: New hydrocortisone 2.5 % cream 1 appl topical BID PRN (Reason: itching) Qty: 28.35 0RF No Action ibuprofen 600 mg tablet 600 mg PO Q8H PRN (Reason: pain) Qty: 30 0RF omeprazole 20 mg capsule,delayed release(DR/EC) 20 mg PO DAILY Qty: 30 6RF tadalafil [Cialis] 5 mg tablet 5 mg PO DAILY Qty: 30 7RF Rx Instructions: [id number] [facility] [id number] Member [id number] albuterol sulfate 90 mcg/actuation HFA aerosol inhaler 2 puff inhalation Q6H PRN (Reason: shortness of breath or wheezing) Qty: 8.5 0RF (DME) B[facility]he[facility] MDI Spacer Spacer See Rx Instructions .Route Qty: 1 2RF Rx Instructions: As directed Referrals: [facility] [place] [facility] [Provider Group] (call to schedule) Print Language: [place]
[2024-10-14 08:46] LABS: Erythrocyte Sedimentation Rate 2 MM/HR (0-15)
[2024-10-14] MEDS: iohexoL 350 MG/ML 100 ML INFUS..BTL IV (09:24)
[2024-10-14 11:34] VITALS: BP 122/85; PULSE 77; RESP 16; TEMP 36.6
== END 2024-10-14 11:36 | disposition home or self-care (01) ==
PROVIDERS: Emergency Provider Emergency Medicine; PCP Internal Medicine
DX: L29.0 Pruritus ani (principal)
CPT/HCPCS: 36415; 74177; 80048; 80076; 81003; 83690; 85025; 85652; 86140; 99284; Q9967

== ENCOUNTER → 2024-10-14 08:31 | Outpatient (BNV) | payer OTHER, SELFPAY | PROVIDERS: Emergency Provider Emergency Medicine; PCP Internal Medicine; Visit Provider Radiology Diagnostic Radiology | DX: N32.3 Diverticulum of bladder (principal) | CPT/HCPCS: 74177 ==

== ENCOUNTER 2025-03-31 07:38 | Emergency (ER) | payer OTHER, SELFPAY ==
[2025-03-31 07:40] VITALS: BP 118/71; PULSE 88; RESP 20; TEMP 37; O2SAT 97; BMI 27.4
--- NOTE | 2025-03-31 08:06 | ED.LOWEXIN ---
HPI - Extremity Injury (Lower) General Chief Complaint: Extremity Injury, Lower Stated Complaint: L thigh pain rad to foot Time Seen by Provider: 03/31/25 07:49 Source: patient Mode of arrival: ambulatory Limitations: no limitations History of Present Illness ED Provider: HPI Narrative: Otherwise healthy 40-year-old male without any trauma fevers or chills any prolonged travel or recent surgeries, he did have a surgery left inguinal hernia repair sometime last year, presenting with tightness along his left lateral thigh radiates down past his knee, no rashes, no swelling. Related Data Previous Rx's ?Medication ?Instructions ?Recorded ibuprofen 600 mg tablet 600 mg PO Q8H PRN pain #30 tabs 03/03/24 albuterol sulfate 90 mcg/actuation 2 puff inhalation Q6H PRN 07/06/24 aerosol inhaler shortness of breath or wheezing #8.5 grams inhalational spacing device #1 ea 07/06/24 (B[facility]he[facility] MDI Spacer) tadalafil 5 mg tablet (Cialis) 5 mg PO DAILY #30 tabs 07/12/24 omeprazole 20 mg capsule,delayed 20 mg PO DAILY #30 caps 08/03/24 release hydrocortisone 2.5 % topical cream 1 appl topical BID PRN itching 10/14/24 #28.35 grams Medrol (Seven) 4 mg tablets in a 4 mg PO DAILY #21 ea 03/31/25 dose pack (methylprednisolone) Allergies Allergy/AdvReac Type Severity Reaction Status Date / Time No Known Allergies (No Known Allergy Verified 03/31/25 07:41 Allergies*) Review of Systems Constitutional: Constitutional: Reports as per [facility] Past Medical History Medical History History of COVID-19 History of abdominal abscess Irritable bowel syndrome with constipation Erectile dysfunction Lumbar disc herniation with radiculopathy Inattention Difficulty concentrating Recurrent mild major depressive disorder with anxiety Lumbago Irritable bowel syndrome with constipation and diarrhea Mild intermittent asthma Surgical History S/P left inguinal herniorrhaphy History of surgery No pertinent past surgical history Family History Family History Father Depression Mental health disorder Mother Breast cancer Polycystic kidney disease Maternal Grandmother Stomach cancer Maternal Grandfather Bone cancer Brother No problems noted. Brother No problems noted. Brother No problems noted. Paternal Uncle Substance use disorder Paternal Aunt Substance use disorder Social History Social History Housing: Apartment Alcohol intake: never Comment: COUNTS CORRECT Patient Tobacco Use Status: Never used Tobacco e-Cigarette/Vaping Use: Never Used Second Hand Smoke Exposure: No Advance Directives: Yes Advance Directives on File: Yes Advance Directives Date on File: 04/20/24 service: No Current occupational status: employed Cognitive needs: No Hearing needs: No Vision needs: Yes Physical Exam Vital Signs: Vital Signs: Last Vital Signs Temp 98.6 F 03/31/25 07:40 Pulse 88 03/31/25 07:40 Resp 20 03/31/25 07:40 BP 118/71 03/31/25 07:40 Pulse Ox 97 03/31/25 07:40 O2 Del Method Room Air 03/31/25 07:40 BMI result Body Mass Index 27.4 Const: Other: Otherwise well-appearing patient Examination abdomen is benign, well-healed scar from prior surgery Proximal distal pulses left lower extremity intact Full range of motion of the hip, knee, ankle No palpable masses no skin changes, no defects Tenderness along his ITB with positive Dolores's test Medical Decision Making Medical Decision Making MDM Narrative: Bedside ultrasound of the soft tissue obtained, he has no intramuscular collections or any cystic structures are nothing else to suspect pyomyositis good pulses soft compartments and overall reassuring examination, his exam on presentation is most consistent with iliotibial band syndrome, see my discharge instructions Differential Diagnosis Differential Diagnoses: The differential diagnosis associated with the presentation includes Quad tendon injury, vastus lateralis injury, DVT, arterial insufficiency, cellulitis, abscess Discharge Plan Discharge Clinical Impression: Iliotibial band syndrome affecting left lower leg Patient Disposition: Home, Self-Care Additional Instructions: I recommend you look up iliotibial band syndrome stretching exercises and treatment, if this is really bothersome you I would recommend ibuprofen 400 mg every 6 hours around the clock for the next 4-5 days, take it with food, stretching, icing the area of the maximal point of discomfort, you can also look into getting capsaicin patches, they come and a big pack of 3 cut into strips and paste along the ITB band, capsaicin helps with inflammation and spasm I also feel that could shoe support that you were already looking into as a great idea and that is part of the treatment. any other issues or concerns come back to the ER otherwise follow up with the PCP you may need physical therapy for this I am also going to give you the option to start oral steroids, ( instead of ibuprofen), steroids are just stronger anti-inflammatories that you take for 6 days, this will fairly quickly resolve any type of inflammation that you may have and then you can continue with other recommendations as above. Prescriptions: New methylprednisolone [Medrol (Seven)] 4 mg tablets,dose pack 4 mg PO DAILY Qty: 21 0RF Rx Instructions: Day 1: 24 mg on day 1 administered as 8 mg before breakfast, 4 mg after lunch, 4 mg after supper, and 8 mg at bedtime or 24 mg as a single dose or divided into 2 or 3 doses upon initiation. Day 2: 20 mg on day 2 administered as 4 mg before breakfast, 4 mg after lunch, 4 mg after supper, and 8 mg at bedtime. Day 3: 16 mg on day 3 administered as 4 mg before breakfast, 4 mg after lunch, 4 mg after supper, and 4 mg at bedtime. Day 4: 12 mg on day 4 administered as 4 mg before breakfast, 4 mg after lunch, and 4 mg at bedtime. Day 5: 8 mg on day 5 administered as 4 mg before breakfast and 4 mg at bedtime. Day 6: 4 mg on day 6 administered as 4 mg before breakfast. No Action ibuprofen 600 mg tablet 600 mg PO Q8H PRN (Reason: pain) Qty: 30 0RF omeprazole 20 mg capsule,delayed release(DR/EC) 20 mg PO DAILY Qty: 30 6RF hydrocortisone 2.5 % cream 1 appl topical BID PRN (Reason: itching) Qty: 28.35 0RF tadalafil [Cialis] 5 mg tablet 5 mg PO DAILY Qty: 30 7RF Rx Instructions: [id number] [facility] [id number] Member [id number] albuterol sulfate 90 mcg/actuation HFA aerosol inhaler 2 puff inhalation Q6H PRN (Reason: shortness of breath or wheezing) Qty: 8.5 0RF (DME) BreatheRite MDI Spacer Spacer See Rx Instructions .Route Qty: 1 2RF Rx Instructions: As directed Print Language: Persian
--- NOTE | 2025-03-31 08:30 | PC.NURSE ---
patient a&ox3, vss, pt c/o lower extremity discomfort, provider at bedside, call [place] within reach, plan of care ongoing
[2025-03-31 08:33] VITALS: BP 115/81; PULSE 82; RESP 18; TEMP 36.8; O2SAT 97
[2025-03-31 08:43] VITALS: BP 115/81; PULSE 82; RESP 18; TEMP 36.8; O2SAT 97
== END 2025-03-31 08:44 | disposition home or self-care (01) ==
PROVIDERS: Emergency Provider Emergency Medicine; PCP Internal Medicine
DX: M76.32 Iliotibial band syndrome, left leg (principal); Z98.890 Other specified postprocedural states
CPT/HCPCS: 76882; 99284

== ENCOUNTER 2025-05-23 07:10 | Day surgery (SDC) | payer OTHER, SELFPAY ==
--- OUTSIDE RECORDS SUMMARY | 2025-04-13 08:28 | XMS_ITS | Patient Health Record ---
Author Organization [facility] Address [address] [place] [address] Care Team Providers Care Tubing Supervisor Name Role Phone Jin MONROE, Karen Primary Care Provider Odin Jones Jr Unavailable Jeremie Fuentes Unavailable [phone] Allergies No Known Allergies Reason For Referral No Information Medications Medication SIG (Take, Route, Frequency, Duration) Notes Start Date End Date Status Albuterol Sulfate HFA 108 (90 Base) MCG/ACT Inhalation for 25 Days Active Omeprazole 20 MG 1 tablet Orally Tw a day for 30 day(s) 11/04/2018 Active Tadalafil 5 MG TAKE 1 TABLET BY DAVID TH ONCE DAILY Oral for 30 Days Active DULoxetine HCl 20 MG 1 capsule Orally On a day Active Immunizations Vaccine Route Administration Date Status Comme nts Influenza Unknown 06/22/2018 Administered Influenza Unknown 06/06/2024 Administered Social History Tobacco Use: Social History Observation Description Date Details (start date - stop date) Never Smoker NA - NA Tobacco Use/Smoking Question Answer Notes Patient is a nonsmoker Alcohol Screen Question Answer Notes Did you have a drink containing alcohol in the p ast year? 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 Problem 530596796 Gonzalez''s esophagus without dysplasia (K22.70) Active confirmed Vital Signs Temperature 98.2 degrees Fahrenheit 02/21/2025 Blood pressure diastolic 01 mm Hg 02/21/2025 Height 70 in 02/21/2025 Blood pressure systolic 001 mm Hg 02/21/2025 Weight 193.4 lbs 02/21/2025 BMI 27.75 kg/m2 02/21/2025 Procedures Procedure Date Ordered Date Performed Result Body Sit e UPPER GI ENDOSCOPY 02/21/2025 N/A Encounters Encounter Location Date Provider Diagnosis [facility] [address] [place] [address] 02/21/2025 Jeremie Fuentes Constipation K59.00 ; GERD (gastroesophageal reflux disease) K21.9 and Gonzalez esophagus K22.70 Assessments Encounter Date Diagnosis (ICD Code) Assessment Notes Treatment Notes Treatment Clinical Notes Section Notes 02/21/2025 Constipation (ICD-10 - K59.00) For the constipation and straining: Use 2 Metamucil fiber pills once or twice a day with a lot of water. Use some Miralax daily if need be as well. Overall, Delano appears quite well. His reflux seems to be very stable on his current regimen of omeprazole. He is not having any worrisome or worsening symptoms of reflux. At this time I reviewed his previous procedures with him. While the exam in 2019 was negative for any Gonzalez's esophagus, I did recommend a follow-up endoscopy given the initial findings of some Gonzalez's mucosa in 2017. The overall findings in 2017 were quite minimal. However, given his young age I recommend we do another endoscopy now since it has been over 5 years since the last endoscopy. Full consent has been obtained for the endoscopy, including risks of bleeding and perforation. The procedure will be done with monitored anesthesia care. I did advise him that if this endoscopy is again negative for any Gonzalez's mucosa on the biopsies, then I do not think he would need any further upper endoscopies going forward. I did advise him to continue the omeprazole for symptomatic relief of his reflux in the meantime. In regard to his symptoms of constipation and perianal discomfort I did recommend adding some Metamucil and/or MiraLAX to his daily regimen to see if that can make his bowel movements easier and less uncomfortable. I did advise him to use baby wipes to clean himself if the toilet paper is causing too much irritation. I advised him that I do not think he needs a colonoscopy at this time given no worrisome symptoms, a negative exam in the past, his young age, and no significant family history of colon cancer in first-degree or young relatives. I did advise him to let me know if his symptoms worsen in that regard. Delano was very comfortable with this plan. Thank you again for allowing me to participate in Delano's care. I shall continue to keep you advised of his progress.. 02/21/2025 GERD (gastroesophagea l reflux disease) (ICD-10 - K21.9) Overall, Delano appears quite well. His reflux seems to be very stable on his current regimen of omeprazole. He is not having any worrisome or worsening symptoms of reflux. At this time I reviewed his previous procedures with him. While the exam in 2019 was negative for any Gonzalez's esophagus, I did recommend a follow-up endoscopy given the initial findings of some Gonzalez's mucosa in 2017. The overall findings in 2017 were quite minimal. However, given his young age I recommend we do another endoscopy now since it has been over 5 years since the last endoscopy. Full consent has been obtained for the endoscopy, including risks of bleeding and perforation. The procedure will be done with monitored anesthesia care. I did advise him that if this endoscopy is again negative for any Gonzalez's mucosa on the biopsies, then I do not think he would need any further upper endoscopies going forward. I did advise him to continue the omeprazole for symptomatic relief of his reflux in the meantime. In regard to his symptoms of constipation and perianal discomfort I did recommend adding some Metamucil and/or MiraLAX to his daily regimen to see if that can make his bowel movements easier and less uncomfortable. I did advise him to use baby wipes to clean himself if the toilet paper is causing too much irritation. I advised him that I do not think he needs a colonoscopy at this time given no worrisome symptoms, a negative exam in the past, his young age, and no significant family history of colon cancer in first-degree or young relatives. I did advise him to let me know if his symptoms worsen in that regard. Delano was very comfortable with this plan. Thank you again for allowing me to participate in Delano's care. I shall continue to keep you advised of his progress.. 02/21/2025 Gonzalez esophagus (ICD-10 - K22.70) Overall, Delano appears quite well. His reflux seems to be very stable on his current regimen of omeprazole. He is not having any worrisome or worsening symptoms of reflux. At this time I reviewed his previous procedures with him. While the exam in 2019 was negative for any Gonzalez's esophagus, I did recommend a follow-up endoscopy given the initial findings of some Gonzalez's mucosa in 2017. The overall findings in 2017 were quite minimal. However, given his young age I recommend we do another endoscopy now since it has been over 5 years since the last endoscopy. Full consent has been obtained for the endoscopy, including risks of bleeding and perforation. The procedure will be done with monitored anesthesia care. I did advise him that if this endoscopy is again negative for any Gonzalez's mucosa on the biopsies, then I do not think he would need any further upper endoscopies going forward. I did advise him to continue the omeprazole for symptomatic relief of his reflux in the meantime. In regard to his symptoms of constipation and perianal discomfort I did recommend adding some Metamucil and/or MiraLAX to his daily regimen to see if that can make his bowel movements easier and less uncomfortable. I did advise him to use baby wipes to clean himself if the toilet paper is causing too much irritation. I advised him that I do not think he needs a colonoscopy at this time given no worrisome symptoms, a negative exam in the past, his young age, and no significant family history of colon cancer in first-degree or young relatives. I did advise him to let me know if his symptoms worsen in that regard. Delano was very comfortable with this plan. Thank you again for allowing me to participate in Vielkas care. I shall continue to keep you advised of his progress.. Plan Of Treatment Pending Test Test Name Order Date UPPER GI ENDOSCOPY 02/21/2025 Future Test Test Name Order Date UPPER GI ENDOSCOPY 03/17/2017 COLONOSCOPY 03/17/2017 UPPER GI ENDOSCOPY 11/04/2018 Next Appt Details Provider Name:Jeremie Fuentes , 05/23/2025 08:30:00 AM, [address] [facility] , [place], [place], [id number], Insurance Providers Payer Name Payer Address Payer Phone Subscriber Number Group Number Insured Name Patient Relationship to Insured Coverage Start Date Coverage End Date [facility] (NEEDS REFERRAL) [address] [place] [phone] [id number] PILY KAUFMAN Self - patient is the insured MEDICAID OF [employer] [address] [place] [phone] [id number] PILY KAUFMAN Self - patient is the insured Medical (General) History Medical History History ICD Code Anxiety/Depression Asthma HPV infection with perianal conyloma Denies PR,DM,CVA,Lung disease,renal dise ase EGD in 2019--no Gonzalez's on the biopsie s, mild changes of reflux Upper endoscopy in 2017 with a tiny and questionable area of Gonzalez's esophagus. There was no dysplasia on the biopsies. Negative colonoscopy in 2017 Surgical History Surgery Date(Month/Year) Left inguinal Umbilical hernia Perianal condyloma ablation 2015,2016
[2025-05-18 11:08] VITALS: BMI 27.7
[2025-05-23 07:45] VITALS: BMI 26.9
[2025-05-23 07:48] VITALS: BP 128/87; PULSE 79; RESP 16; TEMP 35.9; O2SAT 96
[2025-05-23] MEDS: Albuterol Sulfate (0.083%) 2.5 MG/3 ML VIAL.NEB INHALE (08:16)
[2025-05-23 08:18] VITALS: PULSE 77; RESP 14; O2SAT 96
--- NOTE | 2025-05-23 08:28 | P.CONAN_ITS ---
Documented by User: Xi Beltran NP 05/22/25 09:10 HPI - Anesthesia Eval Consult details Narrative: 40 yr old for upper endoscopy S/P hernia repair with MAC in 2023 [facility] Active Problems Active Problems: All Active Problems (Updated 05/18/25 @ 11:12 by Chelly Santana RN) Testicular pain (Acute) COVID-19 (Acute) Screening PSA (prostate specific antigen) (Acute) Abnormal US (ultrasound) of abdomen (Acute) PHILLIPS (nonalcoholic steatohepatitis) (Acute) GERD (gastroesophageal reflux disease) (Acute) Erectile dysfunction (Acute) Lumbar disc herniation with radiculopathy (Acute) Recurrent mild major depressive disorder with anxiety (Acute) Mild intermittent asthma (Acute) Past Medical History Medical History (Updated 05/23/25 @ 07:43 by Sadaf Caban RN) Heart palpitations Depression History of COVID-19 History of abdominal abscess Erectile dysfunction Lumbar disc herniation with radiculopathy Inattention Difficulty concentrating Recurrent mild major depressive disorder with anxiety Lumbago Irritable bowel syndrome with constipation and diarrhea Mild intermittent asthma Family History Family History Father Depression Mental health disorder Mother Breast cancer Polycystic kidney disease Maternal Grandmother Stomach cancer Maternal Grandfather Bone cancer Brother No problems noted. Brother No problems noted. Brother No problems noted. Paternal Uncle Substance use disorder Paternal Aunt Substance use disorder Family history of problems with anesthesia: No Surgical History Surgical History (Updated 05/18/25 @ 11:12 by Chelly Santana RN) H/O colonoscopy History of esophagogastroduodenoscopy (EGD) Hx of prior ablation treatment S/P left inguinal herniorrhaphy History of surgery History of Problems with Anesthesia: No Social History Social History Housing: Apartment Alcohol intake: never Comment: COUNTS CORRECT Patient Tobacco Use Status: Never used Tobacco e-Cigarette/Vaping Use: Never Used Second Hand Smoke Exposure: No Use of substances other than those prescribed or required for medical reasons: No Are you DNR?: No Advance Directives: No Advance Directives Information Provided: Yes Advance Directives Date on File: 04/20/24 Poor oral hygiene: No service: No Current occupational status: employed Cognitive needs: No Hearing needs: No Vision needs: Yes Meds Allergies Allergy/AdvReac Type Severity Reaction Status Date / Time No Known Allergies (No Known Allergy Verified 03/31/25 07:41 Allergies*) Home Medications ?Medication ?Instructions ?Recorded ?Confirmed ?Last Taken ?Type duloxetine 30 mg capsule,delayed 30 mg PO DAILY 05/18/25 Unknown History release Exam Height,Weight and Vital Signs: Height 5 ft 10 in Weight 87.543 kg Assessment and Plan Final Anesthetic Review Family History of Problems with Anesthesia: No History of Problems with Anesthesia: No Documented by User: Savi Louie DO 05/23/25 08:31 PMFSH Past Medical History Medical History (Updated 05/23/25 @ 07:43 by Sadaf Caban RN) Heart palpitations Depression History of COVID-19 History of abdominal abscess Erectile dysfunction Lumbar disc herniation with radiculopathy Inattention Difficulty concentrating Recurrent mild major depressive disorder with anxiety Lumbago Irritable bowel syndrome with constipation and diarrhea Mild intermittent asthma Family History Family History Father Depression Mental health disorder Mother Breast cancer Polycystic kidney disease Maternal Grandmother Stomach cancer Maternal Grandfather Bone cancer Brother No problems noted. Brother No problems noted. Brother No problems noted. Paternal Uncle Substance use disorder Paternal Aunt Substance use disorder Family history of problems with anesthesia: No Surgical History Surgical History (Updated 05/18/25 @ 11:12 by Chelly Santana RN) H/O colonoscopy History of esophagogastroduodenoscopy (EGD) Hx of prior ablation treatment S/P left inguinal herniorrhaphy History of surgery History of Problems with Anesthesia: No Social History Social History Housing: Apartment Alcohol intake: never Comment: COUNTS CORRECT Patient Tobacco Use Status: Never used Tobacco e-Cigarette/Vaping Use: Never Used Second Hand Smoke Exposure: No Use of substances other than those prescribed or required for medical reasons: No Are you DNR?: No Advance Directives: No Advance Directives Information Provided: Yes Advance Directives Date on File: 04/20/24 Poor oral hygiene: No service: No Current occupational status: employed Cognitive needs: No Hearing needs: No Vision needs: Yes Meds Allergies Allergy/AdvReac Type Severity Reaction Status Date / Time No Known Allergies (No Known Allergy Verified 03/31/25 07:41 Allergies*) Home Medications ?Medication ?Instructions ?Recorded ?Confirmed ?Last Taken ?Type duloxetine 30 mg capsule,delayed 30 mg PO DAILY 05/18/25 Unknown History release Exam Exam Date and Time: 05/23/25 0826 Height,Weight and Vital Signs: Height 5 ft 10 in Weight 87.543 kg Vital Signs Temperature 96.7 F L 05/23/25 07:48 Pulse Rate 79 05/23/25 07:48 Respiratory Rate 16 05/23/25 07:48 Blood Pressure 128/87 05/23/25 07:48 Pulse Oximetry 96 05/23/25 07:48 Oxygen Delivery Method Room Air 05/23/25 07:48 Temperature 96.7 F L 05/23/25 07:48 Pulse Rate 77 05/23/25 08:18 Respiratory Rate 14 05/23/25 08:18 Blood Pressure 128/87 05/23/25 07:48 Pulse Oximetry 96 05/23/25 07:48 Oxygen Delivery Method Room Air 05/23/25 07:48 Airway Mallampati Class: II TM Dist: >3cm Neck ROM: Full Loose/Missing/Broken Teeth: No (patient denies any loose or broken teeth) Heart: S1S2 Lungs: Diminished bilaterally Assessment and Plan Assessment Anesthesia Assessment: Anesthesia Plan Discussed and Chart Reviewed Final Anesthetic Review Family History of Problems with Anesthesia: No History of Problems with Anesthesia: No NPO: Yes ASA Class: II Final Preanesthetic Review: No Changes in Pt Med Stat, Meds/Allgs Chart Reviewed, Consent Obtained/Reviewed and Anes Risks/Benef Reviewed Patient Risk: Low Procedure Risk: Low Anesthetic Plan Anesthetic Plan: MAC: and Agree w/ Assess. and Plan Disposition: Standard PACU
[2025-05-23 09:05] VITALS: BP 103/58; PULSE 86; RESP 16; TEMP 37; O2SAT 94
--- NOTE | 2025-05-23 09:13 | PM.OP ---
Brief Operative Note Date of Service: 05/23/25 Pre-op diagnosis: GERD, History of Gonzalez's Post-op diagnosis: other (Same, Small hiatal hernia, esophageal papilloma, R/O EoE) Procedure: EGD with biopsies Surgeon: Jeremie Fuentes MD Anesthesia: MAC Was an Ortho Assistant used for this Procedure?: No Estimated blood loss (mL): 2.0 Pathology: other (A. EG Junction at 39cm B. Esophagus at 20cm R/O Papilloma C. Esophagus at 20cm, R/O EoE) Condition: stable Disposition: PACU
[2025-05-23 09:15] VITALS: BP 102/60; PULSE 76; RESP 16; O2SAT 95
[2025-05-23 09:30] VITALS: BP 121/77; PULSE 87; RESP 16; TEMP 37; O2SAT 98
--- NOTE | 2025-05-23 10:11 | OP_ITS ---
DATE OF SERVICE: 05/23/2025 SURGEON: Jeremie Fuentes MD INDICATIONS: The patient presents for evaluation of history of gastroesophageal reflux and Gonzalez's esophagus. Full consent has been obtained from him for this, including risks of bleeding and perforation. PREOPERATIVE DIAGNOSIS: POSTOPERATIVE DIAGNOSIS: PROCEDURE PERFORMED: Esophagogastroduodenoscopy with biopsies. ESTIMATED BLOOD LOSS: COMPLICATIONS: ANESTHESIA: Medication used, monitored anesthesia care. ASSISTANTS: SPECIMENS: PREOPERATIVE DIAGNOSES: Gastroesophageal reflux and history of Gonzalez's esophagus. POSTOPERATIVE DIAGNOSES: Gastroesophageal reflux and history of Gonzalez's esophagus, small hiatal hernia, rule out esophageal squamous papilloma, rule out eosinophilic esophagitis. DESCRIPTION OF PROCEDURE: The patient was placed in the left lateral decubitus position. The Olympus video gastroscope was passed in the posterior oropharynx and upper esophagus under direct vision. The scope was passed slowly into the distal esophagus. The gastroesophageal junction appeared at 39 cm. There was some minimal irregularity consistent with reflux but no definitive evidence of Gonzalez's esophagitis. The scope entered the stomach. There was a small hiatal hernia. The scope was advanced to the pylorus, and the duodenum was cannulated to the descending portion. The duodenum including the bulb appeared normal. The scope was withdrawn back in the stomach. The gastric antrum and body appeared normal. There was good peristalsis. The scope was retroflexed visualizing the proximal stomach carefully, which appeared normal, without any sign of mass or ulceration. The scope was straightened and withdrawn back to the esophagus. Multiple biopsies were obtained at the EG junction at 39 cm. At 20 cm was what appeared to be a less than 5 mm squamous papilloma of the esophagus, which was biopsied and completely removed with a cold biopsy forceps. There was no sign of any other abnormality. I did obtain biopsies in a separate jar at 20 cm to rule out eosinophilic esophagitis. The scope was withdrawn from the patient. He was returned to the recovery area in stable condition. IMPRESSION: 1. Small hiatal hernia, rule out Gonzalez esophagus. 2. Rule out eosinophilic esophagitis. 3. Rule out esophageal papilloma. PLAN: The results of the biopsies will be checked. If there is evidence of Gonzalez esophagus without dysplasia, then I would recommend a repeat upper endoscopy in 3 years. If the biopsies were again negative for Gonzalez esophagus, as they had been in 2019, then he most likely would not need any further upper endoscopies from that standpoint. He was advised to continue his daily PPI. He does have some symptoms in the region of the sternal notch, but I suspect that is a globus sensation and does not reflect any underlying pathology at this point. He will see me on a p.r.n. basis. MD CHELSEA Valentino/TODD / [id number] MTDD
== END 2025-05-23 09:44 | disposition home or self-care (01) ==
PROVIDERS: PCP Internal Medicine; Visit Provider Internal Medicine
PROC: 0DJ08ZZ Inspection of Upper Intestinal Tract, Via Natural or Artificial Opening Endoscopic (ICD-10-PCS; CPT 43235; principal; 2025-05-23 08:30)
DX: K21.9 Gastro-esophageal reflux disease without esophagitis (principal); D13.0 Benign neoplasm of esophagus; K31.A0 Gastric intestinal metaplasia, unspecified; K44.9 Diaphragmatic hernia without obstruction or gangrene; Z87.19 Personal history of other diseases of the digestive system; K75.81 Nonalcoholic steatohepatitis (NASH); J45.20 Mild intermittent asthma, uncomplicated; Z79.899 Other long term (current) drug therapy
CPT/HCPCS: 43239; 88305; 88313; 94640; J2003; J2704

== ENCOUNTER 2025-06-05 10:53 | Outpatient (AMB) | payer OTHER, SELFPAY ==
--- OUTSIDE RECORDS SUMMARY | 2025-05-23 04:30 | XMS_ITS ---
Author Organization [facility] Address [address] [place] [address] Care Team Providers Care Car Unloader Name Role Phone Jin MONROE, Karen Primary Care Provider Jeremie Rodriguez [phone] REASON FOR VISIT ruano's gerd Encounters Encounter Location Date Provider Diagnosis [facility] [address] [place] [phone] 05/23/2025 Jeremie Fuentes Plan Of Treatment No Information Progress Notes * PILY KAUFMANDOB :1985 (40 yo M)Acc No.[id number]:05/23/2025 EGD/MAC Patient: PILY CHAVEZ Provider: Aramis Fuentes MD :1985 A ge:40 Y S ex:Male Date:05/23/2025 Address:[address] [place], [place] [id number] Pcp:Karen Abdi MD Subjective: * Chief Complaints: [...] 05/23/2025 Generated for Printi ng/Farupertg/eTransmitting on: 0 06/05/2025 02:36 PM EDT
--- NOTE | 2025-06-05 11:20 | MHC.PC.OV ---
Vital Signs 06/05/25 11:28 Height 5 ft 10 in Weight 192 lb BMI 27.5 BP 112/80 Blood Pressure Location Rt brachial Position Sitting Respiration 16 Pulse 84 Pulse Source Pulse Oximeter Temp 98.2 F Temp Source Oral Pulse Oximetry (%) 97 Oxygen Delivery Method Room Air Intake Visit Reasons: PE Intake Note: Pt is here today for his PE Allergies No Known Allergies (No Known Allergies*) Allergy (Verified 06/05/25 11:47) Medication List - Last Reconciled 06/05/25 by Karen Abdi MD albuterol sulfate 90 mcg/actuation 2 puffs inhalation Q6H PRN duloxetine 30 mg PO DAILY inhalational spacing device (BreatheRite MDI Spacer) As directed omeprazole 20 mg PO DAILY tadalafil (Cialis) 5 mg PO DAILY Tobacco use date assessed: 06/05/25 Dental Screening Dental Screen Date: 06/05/25 Did you have a dental visit in the last 12 months?: Yes Did you have a dental problem in the last 6 months where you did not have access to dental care?: No Was dental information given to patient?: Patient has dentist HPI PE HPI Details 40-year-old male with history of reflux esophagitis, PFSH Medical History (Updated 06/05/25 @ 12:12 by Karen Abdi MD) Leukopenia Hiatal hernia Reflux esophagitis Heart palpitations Depression History of COVID-19 History of abdominal abscess Erectile dysfunction Lumbar disc herniation with radiculopathy Inattention Difficulty concentrating Recurrent mild major depressive disorder with anxiety Lumbago Irritable bowel syndrome with constipation and diarrhea Mild intermittent asthma Surgical History (Updated 05/18/25 @ 11:12 by Chelly Santana RN) H/O colonoscopy History of esophagogastroduodenoscopy (EGD) Hx of prior ablation treatment S/P left inguinal herniorrhaphy History of surgery Family History Father Depression Mental health disorder Mother Breast cancer Polycystic kidney disease Maternal Grandmother Stomach cancer Maternal Grandfather Bone cancer Brother No problems noted. Brother No problems noted. Brother No problems noted. Paternal Uncle Substance use disorder Paternal Aunt Substance use disorder Social History Housing: Apartment Alcohol intake: never Comment: COUNTS CORRECT Patient Tobacco Use Status: Never used Tobacco e-Cigarette/Vaping Use: Never Used Second Hand Smoke Exposure: No Advance Directives Date on File: 04/20/24 service: No Current occupational status: employed Cognitive needs: No Hearing needs: No Vision needs: Yes Questionnaire PHQ-9 Over the last 2 weeks, how often have you been bothered by any of the following problems? 1. Little interest or pleasure in doing things: several days 2. Feeling down, depressed, or hopeless: several days 3. Trouble falling or staying asleep, or sleeping too much: several days 4. Feeling tired or having little energy: several days 5. Poor appetite or overeating: not at all 6. Feeling bad about yourself - or that you are a failure or have let yourself or your family down: several days 7. Trouble concentrating on things, such as reading the newspaper or watching television: several days 8. Moving or speaking so slowly that other people could have noticed. Or the opposite - being so fidgety or restless that you have been moving around a lot more than usual: not at all 9. Thoughts that you would be better off or of hurting yourself in some way: not at all Total score: 6 Depression Screening Interpretation: Negative Depression Screening Done: Yes 91259 - PHQ-9 Billing: Yes Source: Developed by Drs. Jeremie Medina, Jeannine Mc, Ravi Rock and colleagues, with an educational gal from [employer]. Thrive Questionnaire Date Thrive assessed: 06/05/25 I am a: Patient What is your living situation today?: I have a steady place to live Within the past 12 months, did the food you bought not last and you didn't have the money to get more?: Never true Within the past 12 months, did you worry whether your food would run out before you got money to buy more?: Never true Do you have trouble paying for medicines?: No Do you have trouble getting transportation to medical appointments?: No Do you have trouble paying your heating and electricity bill?: No Do you have trouble taking care of your child, family member or friend?: No Do you have trouble with day-to-day activities such as bathing, preparing meals, shopping, managing finances, etc.?: No Are you currently unemployed and looking for a job?: No Are you interested in more education?: I choose not to answer this question Please select the resources that you would like help with: None Currently or been in a relationship where the following occur: No concerns reported THRIVE Score: 0 AUDIT C Alcohol Use Questionnaire (AUDIT-C) 1. How often do you have a drink containing alcohol?: Never Total Score: 0 Score Reviewed/Action Taken: Yes KINGSLEY-7 AMB Questionnaire KINGSLEY-7 Date KINGSLEY - 7 assessed: 06/05/25 Feeling nervous, anxious, or on edge: 1 = Several days Not being able to stop or control worryin = Several days Worrying too much about different things: 1 = Several days Trouble relaxin = Several days Being so restless that it is hard to sit still: 0 = Not at all Becoming easily annoyed or irritable: 2 = More than half the days Feeling afraid as if something awful might happen: 1 = Several days Total KINGSLEY-7 score (0-4 normal; 5-9 mild; 10-14 moderate; 15-21 severe): 7 Source: Developed by Drs. Jeremie Medina, Jeannine Mc, Ravi Rock and colleagues, with an educational gal from [employer]. KINGSLEY-7 Assessment Billing KINGSLEY-7 Assessment Tool: KINGSLEY-7 Assessment 22748 Review of Systems Const All systems reviewed & are unremarkable except as noted in HPI and below Eyes Denies change in vision ENT Reports Normal hearing present Neuro Reports Normal hearing present and Denies Abnormal speech present Physical exam (Primary Care) Vital Signs: Last Vital Signs Temp 98.2 F 06/05/25 11:28 Pulse 84 06/05/25 11:28 Resp 16 06/05/25 11:28 BP 112/80 06/05/25 11:28 Pulse Ox 97 06/05/25 11:28 Oxygen Delivery Method Room Air 06/05/25 11:28 BMI result Body Mass Index 27.5 Tobacco/Smoking Status: Tobacco use Status Tobacco use date assessed 06/05/25 06/05/25 11:23 Patient Tobacco Use Status Never used Tobacco 06/05/25 11:23 e-Cigarette/Vaping Use Never Used 06/05/25 11:23 PHQ-9: PHQ-9 Score PHQ-9: Total score 6 06/05/25 11:59 Depression Screening Interpretation: Negative Thrive Assessment: Date of Thrive Assessment Date Thrive assessed 06/05/25 06/05/25 11:32 Currently or been in a relationship where the following occur: No concerns reported Advance Care Planning discussion: Completed/Scanned Date of discussion: 06/05/25 Who was present: Patient Forms completed: Health Care Proxy Time spent: 16-45 minutes Actual minutes spent: 2 Neuro Cranial nerves: Yes Normal hearing present Speech: No Abnormal speech present Office Procedures Flu Questionnaire Does the patient have a severe egg allergy?: No Does the patient have severe life threatening allergies?: No Does the patient have a fever or illness today?: No Has the patient ever had Guillain-[place] Syndrome?: No Has the patient ever had any past reaction to a flu shot?: No Immunizations Fluarix [id number] (PF) 45 mcg (15 mcg x 3)/0.5 mL IM syringe Performing Provider: Karen Abdi MD Performing Location: [facility] Administered by: Korin Corona CMA on 06/05/25 12:20 Dose Route Admin Location Dispensed Lot Number Expiration Date NDC Pulp Tester 0.5 mL IM Left Deltoid 0.5 mL [id number] 03/19/26 [id number] [employer] VIS Given Date VIS Provided VIS Publication Date 06/05/25 Single Vaccine 24 Eligibility Eligibility Date Funding Source Not [facility] Eligible 06/05/25 Private Coding Level of Care Code Est Pt Prev Care 18-39y(46473) Diagnoses Screening for Malignant Neoplasm of Skin Z12.83 Skin lesion of back L98.9 Mild intermittent asthma without complication J45.20 Asthma complication type: uncomplicated Annual visit for general adult medical examination with abnormal findings Z00.01 Recurrent mild major depressive disorder with anxiety F33.0; F41.9 Erectile dysfunction, unspecified erectile dysfunction type N52.9 Erectile dysfunction type: unspecified Reflux esophagitis K21.00 Leukopenia D72.819 Advance directive discussed with patient Z71.89 Additional Codes KINGSLEY-7 Assessment Billing - KINGSLEY-7 Assessment Tool: KINGSLEY-7 Assessment 38792 ([id number]) PHQ-9 - 60352 - PHQ-9 Billing: Yes ([id number]) Vital Signs *Quality* - Advance Care Planning discussion: Completed/Scanned ([id number]) Vital Signs *Quality* - Time spent: 16-45 minutes ([id number]) Assessment & Plan Assessment & Plan (1) Screening for Malignant Neoplasm of Skin: Code(s): Z12.83 - Encounter for screening for malignant neoplasm of skin (2) Skin lesion of back: Code(s): L98.9 - Disorder of the skin and subcutaneous tissue, unspecified (3) Mild intermittent asthma: Code(s): J45.20 - Mild intermittent asthma, uncomplicated Category: Medical Qualifiers: Asthma complication type: uncomplicated Qualified Code(s): J45.20 - Mild intermittent asthma, uncomplicated (4) Annual visit for general adult medical examination with abnormal findings: Code(s): Z00.01 - Encounter for general adult medical examination with abnormal findings Category: Medical (5) Recurrent mild major depressive disorder with anxiety: Code(s): F33.0 - Major depressive disorder, recurrent, mild; F41.9 - Anxiety disorder, unspecified Category: Medical (6) Erectile dysfunction: Code(s): N52.9 - Male erectile dysfunction, unspecified Category: Medical Qualifiers: Erectile dysfunction type: unspecified Qualified Code(s): N52.9 - Male erectile dysfunction, unspecified (7) Reflux esophagitis: Comment: seen on EGD 05/23/[address] Fuentes Code(s): K21.00 - Gastro-esophageal reflux disease with esophagitis, without bleeding Category: Medical (8) Leukopenia: Code(s): D72.819 - Decreased white blood cell count, unspecified Category: Medical (9) Advance directive discussed with patient: Code(s): Z71.89 - Other specified counseling Orders: Orders Influenza [id number] Immunization Today Z23 - Encounter for immunization Complete Blood Count Auto Diff Today D72.819 - Decreased white blood cell count, unspecified, J45.20 - Mild intermittent asthma, uncomplicated, K21.00 - Gastro-esophageal reflux disease with esophagitis, without bleeding, N52.9 - Male erectile dysfunction, unspecified, Z00.01 - Encounter for general adult medical examination with abnormal findings, Z12.83 - Encounter for screening for malignant neoplasm of skin, Z71.89 - Other specified counseling Basic Metabolic Panel Fasting Today D72.819 - Decreased white blood cell count, unspecified, J45.20 - Mild intermittent asthma, uncomplicated, K21.00 - Gastro-esophageal reflux disease with esophagitis, without bleeding, N52.9 - Male erectile dysfunction, unspecified, Z00.01 - Encounter for general adult medical examination with abnormal findings, Z12.83 - Encounter for screening for malignant neoplasm of skin, Z71.89 - Other specified counseling Lipid Panel Today D72.819 - Decreased white blood cell count, unspecified, J45.20 - Mild intermittent asthma, uncomplicated, K21.00 - Gastro-esophageal reflux disease with esophagitis, without bleeding, N52.9 - Male erectile dysfunction, unspecified, Z00.01 - Encounter for general adult medical examination with abnormal findings, Z12.83 - Encounter for screening for malignant neoplasm of skin, Z71.89 - Other specified counseling Alanine Aminotransferase Today D72.819 - Decreased white blood cell count, unspecified, J45.20 - Mild intermittent asthma, uncomplicated, K21.00 - Gastro-esophageal reflux disease with esophagitis, without bleeding, N52.9 - Male erectile dysfunction, unspecified, Z00.01 - Encounter for general adult medical examination with abnormal findings, Z12.83 - Encounter for screening for malignant neoplasm of skin, Z71.89 - Other specified counseling Aspartate Amino Transferase Today D72.819 - Decreased white blood cell count, unspecified, J45.20 - Mild intermittent asthma, uncomplicated, K21.00 - Gastro-esophageal reflux disease with esophagitis, without bleeding, N52.9 - Male erectile dysfunction, unspecified, Z00.01 - Encounter for general adult medical examination with abnormal findings, Z12.83 - Encounter for screening for malignant neoplasm of skin, Z71.89 - Other specified counseling Referrals Dermatology Referral L98.9 - Disorder of the skin and subcutaneous tissue, unspecified, Z12.83 - Encounter for screening for malignant neoplasm of skin
[2025-06-05 11:28] VITALS: BP 112/80; PULSE 84; RESP 16; TEMP 36.8; O2SAT 97; BMI 27.5
--- OUTSIDE RECORDS SUMMARY | 2025-06-05 14:36 | XMS_ITS | Patient Health Record ---
Author Organization [facility] Address [address] [place] [address] Care Team Providers Care Pastry Mixer Name Role Phone Jin MONROE, Karen Primary Care Provider Jeremie Rodriguez [phone] Allergies No Known Allergies Results Component Value Reference Range Notes Pathology Reviewed date:05/29/2025 01:03:26 AM Interpretation: Performing Lab:[facility], [address] [place] [phone] Notes/Report: Reason For Referral No Information Medications Medication SIG (Take, Route, Frequency, Duration) Notes Start Date End Date Status Albuterol Sulfate HFA 108 (90 Base) MCG/ACT Inhalation for 25 Days Active Omeprazole 20 MG 1 tablet Orally Twic e a day for 30 day(s) 11/04/2018 Active Tadalafil 5 MG TAKE 1 TABLET BY ONCE DAILY Oral for 30 Days Active DULoxetine HCl 20 MG 1 capsule Orally On ce a day Active Immunizations Vaccine Route Administration [...] Problem Status W/U Status Risk Notes Problem 97072078 Rectal bleeding (K62.5) Active confirmed Problem Constipation (47924362) Constipation (K59.00) Active confirmed Problem 839789504 Gastroesophageal reflux disease without esophagitis (K21.9) Active confirmed Problem 813753420 Fatty liver (K76.0) Active confirmed Problem Gastroesophageal reflux disease (342354992) GERD (gastroesophageal reflux disease) (K21.9) Active confirmed Problem Gonzalez esophagus (211419407) 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 Outpatient [address] [place] [address] [id number] 05/23/2025 Jeremie Fuentes [facility] [address] [place] [phone] 02/21/2025 Jeremie Fuentes Constipation K59.00 ; GERD (gastroesophageal reflux disease) K21.9 and Gonzalez esophagus K22.70 [facility] [address] [place] [phone] 05/09/2025 Jeremie Fuentes [facility] [address] [place] [phone] 05/28/2025 Jeremie Fuentes Assessments Encounter Date Diagnosis (ICD Code) Assessment [...] 03/17/2017 COLONOSCOPY 03/17/2017 UPPER GI ENDOSCOPY 11/04/2018 Insurance Providers Payer Name Payer Address Payer Phone Subscriber Number Group Number Insured Name Patient Relationship to Insured Coverage Start Date Coverage End Date [facility] (NEEDS REFERRAL) [address] [place] [address] [phone] [id number] PILY KAUFMAN Self - patient is the insured MEDICAID OF [place] [address] [place] [phone] [id number] PILY KAUFMAN Self - patient is the insured Medical (General) History Medical History History ICD Code Anxiety/Depression Asthma HPV infection with perianal conyloma Denies [place],DM,CVA,Lung disease,renal dise ase EGD in 2019--no Gonzalez's on the biopsie s, mild changes of reflux Upper endoscopy in 2017 with a tiny and questionable area of Gonzalez's esophagus. There was no dysplasia on the biopsies. Negative colonoscopy in 2017 Surgical History Surgery Date(Month/Year) Left inguinal Umbilical hernia Perianal condyloma ablation 2015,2016
== END 2025-06-05 12:18 | disposition home or self-care (01) ==
LOC: HO.HMCC 10:54
PROVIDERS: PCP Internal Medicine; Visit Provider Internal Medicine
DX: Z23 Encounter for immunization (principal)

== ENCOUNTER → 2025-06-05 10:53 | Outpatient (BNVA) | payer OTHER, SELFPAY | PROVIDERS: PCP Internal Medicine; Visit Provider Internal Medicine | DX: Z00.01 Encounter for general adult medical examination with abnormal findings (principal); J45.20 Mild intermittent asthma, uncomplicated; L98.9 Disorder of the skin and subcutaneous tissue, unspecified; F41.9 Anxiety disorder, unspecified; F33.0 Major depressive disorder, recurrent, mild; N52.9 Male erectile dysfunction, unspecified; K21.00 Gastro-esophageal reflux disease with esophagitis, without bleeding; D72.819 Decreased white blood cell count, unspecified; R74.01 Elevation of levels of liver transaminase levels; H61.23 Impacted cerumen, bilateral; Z23 Encounter for immunization; Z71.89 Other specified counseling | CPT/HCPCS: 90471; 90656; 96127; 99395; 99497 ==

== ENCOUNTER 2025-06-09 10:42 | Outpatient (REF) | payer OTHER, SELFPAY ==
--- OUTSIDE RECORDS SUMMARY | 2025-05-23 04:30 | XMS_ITS ---
Author Organization [facility] Address [address] [place] [address] Care Team Providers Care Senior Compensation Consultant Name Role Phone Jin MONROE, Karen Primary Care Provider Jeremie Rodriguez [phone] REASON FOR VISIT ruano's gerd Encounters Encounter Location Date Provider Diagnosis [facility] [place] Out[place] [address] [place] [phone] 05/23/2025 Jeremie Fuentes Plan Of Treatment No Information Progress Notes * PILY KAUFMANDOB :1985 (40 yo M)Acc No.[id number]:05/23/2025 EGD/MAC Patient: PILY CHAVEZ Provider: Aramis Fuentes MD :1985 A ge:40 Y S ex:Male Date:05/23/2025 Address:[address] [place], [place] [id number] Pcp:Karen Abdi MD Subjective: * Chief Complaints: * 1 . Ruano's gerd. * Medical History: Objective: * Vitals: Assessment: Plan: * Treatment: * * The named appointment provid er may or may not be the originator of this progress note, and it is not deemed complete until electronically signed by the appointment provider. Sign off status: Pending * Provider: Aramis Fuentes MD Date: 0 05/23/2025 Generated for Printi ng/Farupertg/eTransmitting on: 0 06/09/2025 10:44 AM EDT
--- OUTSIDE RECORDS SUMMARY | 2025-06-09 10:44 | XMS_ITS | Patient Health Record ---
Author Organization [facility] Address [address] [place] [address] Care Team Providers Care Manufacturing Engineering Director Name Role Phone Jin MONROE, Karen Primary Care Provider Jeremie Rodriguez [phone] Allergies No Known Allergies Results Component Value Reference Range Notes Pathology Reviewed date:05/29/2025 01:03:26 AM Interpretation: Performing Lab:[facility], [address] [place] [phone] Notes/Report: Reason For Referral No Information Medications [...] Problem Status W/U Status Risk Notes Problem 47034101 Rectal bleeding (K62.5) Active confirmed Problem Constipation (59167752) Constipation (K59.00) Active confirmed Problem 078491424 Gastroesophageal reflux disease without esophagitis (K21.9) Active confirmed Problem 851575928 Fatty liver (K76.0) Active confirmed Problem Gastroesophageal reflux disease (407510758) GERD (gastroesophageal reflux disease) (K21.9) Active confirmed Problem Gonzalez esophagus (305950194) 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 Problem 328798082 Goznalez''s esophagus without dysplasia (K22.70) Active confirmed Vital Signs Temperature 98.2 degrees Fahrenheit 02/21/2025 Blood pressure diastolic 01 mm Hg 02/21/2025 Height 70 in 02/21/2025 Blood pressure systolic 001 mm Hg 02/21/2025 Weight 193.4 lbs 02/21/2025 BMI 27.75 kg/m2 02/21/2025 Procedures Procedure Date Ordered Date Performed Result Body Sit e UPPER GI ENDOSCOPY 02/21/2025 N/A Encounters Encounter Location Date Provider Diagnosis [facility] [place] [address] [place] [id number] 05/23/2025 Jeremie Fuentes [facility] [address] [place] [phone] 02/21/2025 Jeremie Fuentes Constipation K59.00 ; GERD (gastroesophageal reflux disease) K21.9 and Gonzalez esophagus K22.70 [facility] [address] [place] [phone] 05/09/2025 Jeremie Fuentes [facility] [address] [place] [phone] 05/28/2025 Jeremie Fuentes Assessments Encounter Date Diagnosis [...] Insured Coverage Start Date Coverage End Date [facility] (NEEDS REFERRAL) [address] [place] [phone] [id number] PILY KAUFMAN Self - patient is the insured MEDICAID [place] [address] [place] [phone] [id number] PILY KAUFMAN Self - patient is the insured Medical (General) History Medical History History ICD Code Anxiety/Depression Asthma HPV infection with perianal conyloma Denies MD,DM,CVA,Lung disease,renal dise ase EGD in 2019--no Gonzalez's on the biopsie s, mild changes of reflux Upper endoscopy in 2017 with a tiny and questionable area of Gonzalez's esophagus. There was no dysplasia on the biopsies. Negative colonoscopy in 2017 Surgical History Surgery Date(Month/Year) Left inguinal Umbilical hernia Perianal condyloma ablation 2015,2016
[2025-06-09 13:41] LABS: MANUAL DIFF FLAG NO
[2025-06-09 13:49] LABS: Hematocrit 44.8 % (42.0-52.0); Hemoglobin 15.7 g/dl (14.0-18.0); Imm Gran Abs Auto 0.01 X10*3/uL (0.00-0.03); Imm Gran Pct Auto 0.4 % (0.0-0.4); Lymphocytes Absolute Auto 0.9 X10*3/uL (1.2-4.9); Mean Corpuscular HGB Conc 35.0 g/dl (31.0-36.0); Mean Corpuscular Hemoglobin 30.0 pg (27.0-33.0); Mean Corpuscular Volume 85.5 fL (80.0-98.0); NRBC Abs Auto 0.000 X10*3/uL (0.0-0.012); NRBC Pct Auto 0.0 /100WBC (0.0-0.2); Platelet Count 232 X10*3/uL (160-400); Red Blood Count 5.24 X10*6/uL (4.60-5.80); White Blood Count 2.8 X10*3/uL (4.8-10.8)
[2025-06-09 14:05] LABS: Alanine Aminotransferase 132 U/L (0-40); Anion Gap 8 (12-20); Aspartate Amino Transferase 60 U/L (5-37); Blood Urea Nitrogen 17 mg/dL (9-16); Calcium 9.7 mg/dL (8.4-10.2); Carbon Dioxide 30 mmol/L (22-29); Chloride 105 mmol/L (96-108); Cholesterol 154 mg/dL (<200); Estimated Glomerular Filt Rate > 60; HDL Cholesterol 57 mg/dL (>40); Potassium 3.9 mmol/L (3.3-5.1); Sodium 139 mmol/L (135-145); Triglycerides 55 mg/dL (<150)
== END 2025-06-09 10:43 | disposition home or self-care (01) ==
LOC: HO.HMGCLDS 10:42
PROVIDERS: PCP Internal Medicine; Visit Provider Internal Medicine
DX: Z00.01 Encounter for general adult medical examination with abnormal findings (principal); J45.20 Mild intermittent asthma, uncomplicated; D72.819 Decreased white blood cell count, unspecified; K21.00 Gastro-esophageal reflux disease with esophagitis, without bleeding; N52.9 Male erectile dysfunction, unspecified; Z71.89 Other specified counseling; Z12.83 Encounter for screening for malignant neoplasm of skin
CPT/HCPCS: 36415; 80048; 80061; 84450; 84460; 85025